=== PATIENT | female | born 1995 | race Caucasian/White ===

== ENCOUNTER 2019-08-20 11:32 | Emergency (ER) | payer MEDICAID, SELFPAY ==
[2019-08-20 11:40] VITALS: BP 108/73; PULSE 69; RESP 16; TEMP 36.4; O2SAT 99
--- NOTE | 2019-08-20 12:29 | ED.URI ---
HPI - URI/Sore Throat General Chief Complaint: Upper Respiratory Infection Stated Complaint: sore throat cough Time Seen by Provider: 08/20/19 12:29 Source: patient and RN notes reviewed Mode of arrival: ambulatory Limitations: no limitations History of Present Illness HPI Narrative: 24-year-old female who presents to [facility] care with complaints of fevers, cough with expectoration of yellow mucous,sore throat starting today but ear pain for 2-3 day. Patient rates her throat pain as 7/10 increases with swallowing and eating. Patient states that she has had a low grade fever with some chills, states that nasal drainage has been yellow also. Patient denies any shortness of breath or any noted wheezing, SAO2 99% on room air, patient states that she quit using tobacco in June of this year. MD elicited complaint: fever, cough, sore throat and rhinorrhea Pertinent past history: sinusitis Onset (ago): day(s) (2-3 ear pain, other symptoms today) Consistency: progressively worsening Severity: severe Pain scale (0-10): 7 Description of mucous: yellow Able to tolerate fluids by mouth: Yes Exacerbating factors: swallowing Relieving factors: nothing Context: sick contacts (daughter ill) Associated symptoms: fever, rhinorrhea, sore throat, cough and ear pain Treatments prior to arrival: acetaminophen Related Data Home Medications Medication Instructions Recorded Confirmed escitalopram oxalate 10 mg PO DAILY 08/20/19 08/20/19 quetiapine 25 mg PO HS 08/20/19 08/20/19 valacyclovir 500 mg PO DAILY 08/20/19 08/20/19 Allergies Allergy/AdvReac Type Severity Reaction Status Date / Time measles, mumps, and rubella Allergy Severe Swelling Verified 08/20/19 12:05 vaccine Review of Systems Review of Systems: All systems reviewed & are unremarkable except as noted in HPI and below Constitutional: Constitutional: Reports as per HPI, Reports no additional constitutional complaints, Reports chills and Reports fever(s) Eyes: Eyes: Reports as per HPI and Reports no additional eye complaints ENT: Reports system reviewed and no additional complaints, except as documented, Reports nasal congestion and Reports sore throat Cardiovascular: Cardiovascular: Reports as per HPI and Reports no additional cardiovascular complaints Respiratory: Respiratory: Reports as per HPI, Reports no additional respiratory complaints and Reports cough Gastrointestinal: Gastrointestinal: Reports as per HPI and Reports no additional gastrointestinal complaints Genitourinary: Genitourinary: Reports no additional female genitourinary complaints and Reports as per HPI Musculoskeletal: Musculoskeletal: Reports no additional musculoskeletal complaints and Reports as per HPI Integumentary/Breasts: Skin/Breast: Reports system reviewed and no additional complaints, except as docu and Reports as per HPI Neurologic: Reports system reviewed and no additional complaints, except as documented and Reports as per HPI Psychiatric: Psychiatric: Reports no additional psychiatric complaints, Reports as per HPI, Reports anxiety and Reports depression Endocrine: Endocrine: Reports no additional endocrine complaints and Reports as per HPI Hematologic/Lymphatic: Hematologic/Lymphatic: Reports no additional hematologic/lymphatic complaints and Reports as per HPI Allergic/Immunologic: Allergic/Immunologic: Reports no additional allergic/immunologic complaints and Reports as per HPI PMFSH Past Medical History Medical History (Updated 08/22/19 @ 17:51 by Nellie Huston NP) Anxiety and depression Sinusitis Surgical History Surgical History (Updated 08/22/19 @ 17:44 by Nellie Huston NP) History of tonsillectomy Tubal ligation status Social History Social History (Updated 08/22/19 @ 17:45 by Nellie Huston NP) Smoking status: Former smoker Tobacco type: cigarettes Smoking end date: 06/25/19 Living arrangements: with family Gender identity (if verbalized by t
== END 2019-08-20 12:45 | disposition home or self-care (01) ==
PROVIDERS: Emergency Provider Registered Nurse
DX: H65.01 Acute serous otitis media, right ear (principal); J02.9 Acute pharyngitis, unspecified; Z87.891 Personal history of nicotine dependence; F41.9 Anxiety disorder, unspecified; F32.9 Major depressive disorder, single episode, unspecified
CPT/HCPCS: 87081; 87880; 99213; G0463

== ENCOUNTER 2021-01-24 15:05 | Emergency (ER) | payer OTHER, SELFPAY ==
[2021-01-24 15:12] VITALS: BP 143/75; PULSE 71; RESP 20; TEMP 36.2; O2SAT 100
--- NOTE | 2021-01-24 15:51 | ED.SKABFB ---
HPI - Skin/Abscess/Foreign Bdy General Chief complaint: Skin/Abscess/Foreign Body Stated complaint: right ring finger issue Time Seen by Provider: 01/24/21 15:51 Source: patient and family History of Present Illness HPI narrative: Patient presents with a itchy rash to her right ring finger. Patient states she has a history of eczema and has tried calamine lotion and cortisone cream with minimal relief in the area. Related Data Allergies Allergy/AdvReac Type Severity Reaction Status Date / Time measles, mumps, and rubella Allergy Severe Swelling Verified 01/24/21 15:36 vaccine Review of Systems Review of Systems: CONSTITUTIONAL: Denies fever, chills, or sweats. EYES: Denies visual changes, redness, or discharge. ENT: Denies rhinorrhea, congestion, sore throat, or otalgia. CARDIOVASCULAR: Denies chest pain, palpitations, or edema. RESPIRATORY: Denies cough or dyspnea. GASTROINTESTINAL: Denies abdominal pain, nausea, vomiting, or diarrhea. GENITOURINARY: Denies dysuria or hematuria. SKIN: Denies rash or itching. MUSCULOSKELETAL: Denies back pain, joint pain, or myalgia. NEUROLOGIC: Denies headache, numbness, or weakness. PSYCHIATRIC: Denies anxiety or depression. Allergic/Immunologic: Comments: At time of signature, agree with nursing past medical, surgical, social and family history. There is no relevant family history pertinent to the presenting complaint PMFSH Past Medical History Medical History (Updated 01/24/21 @ 15:53 by YESENIA Ruiz) Anxiety and depression Sinusitis Surgical History Surgical History (Updated 08/22/19 @ 17:44 by Nellie Huston NP) History of tonsillectomy Tubal ligation status Social History Social History (Updated 08/22/19 @ 17:45 by Nellie Huston NP) Smoking status: Former smoker Tobacco type: cigarettes Smoking end date: 06/25/19 Gender identity (if verbalized by the patient): Female Exam Narrative: GENERAL: Well-appearing, well-nourished, and in no acute distress. HEAD: Normocephalic, atraumatic. EYES: PERRLA and EOMI. ENT: Nares clear, no rhinorrhea or epistaxis. Mucous membranes moist. NECK: Supple. CHEST: Clear to auscultation. No respiratory distress. HEART: Regular rate and rhythm. No murmur heard. Normal peripheral pulses. ABDOMEN: Soft, nontender, nondistended, normal active bowel sounds. EXTREMITIES: Normal range of motion. No edema. SKIN: Warm, dry, no dry scsly rash to right ring finger consistent with eczema no concern for cellullitis NEURO: No focal deficits. Alert and oriented x3. Nika Coma Scale Eye Opening: Spontaneous 4 Selma Coma Scale Motor: Obeys Commands 6 Nika Coma Scale Verbal: Oriented 5 Nika Coma Scale Total 15 Course Vital Signs Vital signs: Vital Signs Temperature 36.2 C L 01/24/21 15:12 Pulse Rate 71 01/24/21 15:12 Respiratory Rate 20 01/24/21 15:12 Blood Pressure 143/75 H 01/24/21 15:12 Pulse Oximetry 100 01/24/21 15:12 Temperature 36.2 C L 01/24/21 15:12 Pulse Rate 71 01/24/21 15:12 Respiratory Rate 20 01/24/21 15:12 Blood Pressure 143/75 H 01/24/21 15:12 Pulse Oximetry 100 01/24/21 15:12 Please MICHAEL schedule a followup visit with your personal physician for further evaluation and treatment. Including recheck and discussion of your blood pressure. If your symptoms persist, change or worsen significantly before you can contact your personal physician then please, without delay, go to the emergency department for further evaluation MDM - Skin/Abscess/Foreign Bdy Differential Diagnosis Differential diagnosis: Likely abscess of skin or subcutaneous tissue, viral exanthem, dermatophytosis, urticaria, herpes zoster, allergic reaction to drug, cellulitis, eczema, insect bites, impetigo and contact dermatitis Critical Care Time Critical Care Time Critical Care Time: No Discharge Plan Discharge Clinical Impression: Eczema Patient Disposition: Home, Self-Care Con
== END 2021-01-24 15:55 | disposition home or self-care (01) ==
PROVIDERS: Emergency Provider Nurse Practitioner Family
DX: L30.9 Dermatitis, unspecified (principal); Z87.891 Personal history of nicotine dependence
CPT/HCPCS: 99213; G0463

== ENCOUNTER 2021-04-02 17:45 | Emergency (ER) | payer OTHER, SELFPAY ==
[2021-04-02 17:58] VITALS: BP 147/75; PULSE 98; RESP 20; TEMP 36.7; O2SAT 99
--- NOTE | 2021-04-02 18:10 | ED.URI ---
HPI - URI/Sore Throat General Chief Complaint: Upper Respiratory Infection Stated Complaint: congested/ear pain Source: patient Mode of arrival: ambulatory Limitations: no limitations History of Present Illness HPI Narrative: Patient is a 26-year-old female who presents complaining of sore throat, ear pressure, headache, cough and congestion x2 days. Patient reports fever yesterday. 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 Patient reports that she is not vaccinated for Covid at this time, denies known exposure. She reports taking [id number] medications for fever control. She denies all other complaints at this time. Related Data Home Medications Medication Instructions Recorded Confirmed No Home Medications 04/02/21 04/02/21 Allergies Allergy/AdvReac Type Severity Reaction Status Date / Time measles, mumps, and rubella Allergy Severe Swelling Verified 04/02/21 18:03 vaccine Review of Systems Review of Systems: CONSTITUTIONAL: Denies fever, chills, or sweats. EYES: Denies visual changes, redness, or discharge. ENT: Reports congestion, sore throat, or otalgia. CARDIOVASCULAR: Denies chest pain, palpitations, or edema. RESPIRATORY: Reports cough, denies dyspnea. GASTROINTESTINAL: Denies abdominal pain, nausea, vomiting, or diarrhea. GENITOURINARY: Denies dysuria or hematuria. SKIN: Denies rash or itching. MUSCULOSKELETAL: Denies back pain, joint pain, or myalgia. NEUROLOGIC: Reports headache, denies numbness, dizziness, or weakness. PSYCHIATRIC: Denies anxiety or depression. [facility] Past Medical History Medical History Anxiety and depression Sinusitis Surgical History Surgical History History of tonsillectomy Tubal ligation status Social History Social History Smoking status: Former smoker Tobacco type: cigarettes Smoking end date: 06/25/19 Gender identity (if verbalized by the patient): Female Comments At the time of signature, I have reviewed and agree with nursing past medical, surgical, social, and family history unless otherwise noted. Please see nursing chart for further information. There is no relevant family history pertinent to the presenting complaint. Exam Narrative: GENERAL: Well-nourished, in no acute distress. HEAD: Normocephalic, atraumatic. EYES: EOMI. No redness or drainage. Conjunctiva are normal. ENT: Mucous membranes pink and moist. Nares clear. No rhinorrhea. TMs normal bilaterally. Throat mild erythema. Uvula midline. CHEST: No respiratory distress. HEART: Regular rate and rhythm. EXTREMITIES: Normal range of motion. No edema. SKIN: Warm, dry, no rash. NEURO: No focal deficits. Alert and oriented x3. Gait steady. PSYCH: Normal affect. No signs of depression or anxiety. Course Vital Signs Vital signs: Vital Signs Temperature 36.7 C 04/02/21 17:58 Pulse Rate 98 04/02/21 17:58 Respiratory Rate 20 04/02/21 17:58 Blood Pressure 147/75 H 04/02/21 17:58 Pulse Oximetry 99 04/02/21 17:58 Temperature 36.7 C 04/02/21 17:58 Pulse Rate 98 04/02/21 17:58 Respiratory Rate 20 04/02/21 17:58 Blood Pressure 147/75 H 04/02/21 17:58 Pulse Oximetry 99 04/02/21 17:58 Reviewed-patient is informed that they may have pre-hypertension or hypertension based on a blood pressure reading. I recommend the patient call the primary care provider listed on their discharge instructions or a physician of their choice this week to arrange follow-up for further evaluation of possible pre-hypertension or hypertension. MDM - URI/Sore Throat MDM Narrative Medical decision making narrative: Patient's rapid strep is negative, rapid Covid negative. Covid PCR sent to lab at this time. Discussed with patient symptomatic treatment such as Tylenol or ibuprofen, warm salt water gargles
[2021-04-04 20:20] LABS: SARS-CoV-2 RNA PCR Negative
== END 2021-04-02 18:42 | disposition home or self-care (01) ==
PROVIDERS: Emergency Provider Nurse Practitioner
DX: J06.9 Acute upper respiratory infection, unspecified (principal); Z20.822 Contact with and (suspected) exposure to COVID-19
CPT/HCPCS: 87081; 87426; 87880; 99213; C9803; G0463; U0003; U0005

== ENCOUNTER 2021-05-07 11:20 | Emergency (ER) | payer OTHER, SELFPAY ==
[2021-05-07 11:33] VITALS: BP 125/87; PULSE 91; RESP 18; TEMP 36.7; O2SAT 99
--- NOTE | 2021-05-07 12:29 | ED.SKABFB ---
HPI - Skin/Abscess/Foreign Bdy General Chief complaint: Urogenital-Female Stated complaint: wound on left calf and poss uti Source: patient Mode of arrival: ambulatory Limitations: no limitations History of Present Illness HPI narrative: Patient is a 26-year-old female who presents complaining of mild right flank and pelvic pain x3 to 4 days. She reports urinary frequency. Patient also reports abscess to left lower extremity. Patient reports a history of cellulitis and abscess in the past approximately 3 to 4 months ago. She denies all other complaints at this time. She denies taking [id number] medications prior to arrival. Patient has no significant medical history. MD complaint: abscess/boil Related Data Home Medications Medication Instructions Recorded Confirmed norethindrone-e.estradiol-iron 1 tablet PO DAILY 05/07/21 05/07/21 [Aurovela Fe 1-20 (28)] Allergies Allergy/AdvReac Type Severity Reaction Status Date / Time measles, mumps, and rubella Allergy Severe Swelling Verified 05/07/21 11:49 vaccine Review of Systems Review of Systems: CONSTITUTIONAL: Denies fever, chills, or sweats. EYES: Denies visual changes, redness, or discharge. ENT: Denies rhinorrhea, congestion, sore throat, or otalgia. CARDIOVASCULAR: Denies chest pain, palpitations, or edema. RESPIRATORY: Denies cough or dyspnea. GASTROINTESTINAL: Denies abdominal pain, nausea, vomiting, or diarrhea. GENITOURINARY: Right flank pain and lower abdominal pain SKIN: Abscess to left lower leg MUSCULOSKELETAL: Denies back pain, joint pain, or myalgia. NEUROLOGIC: Denies headache, numbness, dizziness, or weakness. PSYCHIATRIC: Denies anxiety or depression. [facility] Past Medical History Medical History Anxiety and depression Sinusitis Surgical History Surgical History History of tonsillectomy Tubal ligation status Social History Social History Smoking status: Former smoker Tobacco type: cigarettes Smoking end date: 06/25/19 Gender identity (if verbalized by the patient): Female Comments At the time of signature, I have reviewed and agree with nursing past medical, surgical, social, and family history unless otherwise noted. Please see nursing chart for further information. There is no relevant family history pertinent to the presenting complaint. Exam Narrative: GENERAL: Well-appearing, well-nourished, and in no acute distress. HEAD: Normocephalic, atraumatic. EYES: EOMI. No redness or drainage. Conjunctiva are normal. ENT: Mucous membranes pink and moist. CHEST: No respiratory distress. HEART: Regular rate and rhythm. EXTREMITIES: Normal range of motion. No edema. SKIN: Approximate 5 x 6 cm area of erythema with centralized area of fluctuation and induration. No drainage at this time. Warmth and tenderness noted with palpation. NEURO: No focal deficits. Alert and oriented x3. Gait steady. PSYCH: Normal affect. No signs of depression or anxiety. Course Vital Signs Vital signs: Vital Signs Temperature 36.7 C 05/07/21 11:33 Pulse Rate 91 05/07/21 11:33 Respiratory Rate 18 05/07/21 11:33 Blood Pressure 125/87 05/07/21 11:33 Pulse Oximetry 99 05/07/21 11:33 Temperature 36.7 C 05/07/21 11:33 Pulse Rate 91 05/07/21 11:33 Respiratory Rate 18 05/07/21 11:33 Blood Pressure 125/87 05/07/21 11:33 Pulse Oximetry 99 05/07/21 11:33 Reviewed Procedures Abscess I/D lower extremity: Date of Incision: 05/07/21 Sedation/analgesia: none Local Anesthetic: lidocaine 1% Amount of anesthesia used (mL): 3 Technique: needle aspiration Amount of fluid expressed (mL): 1 Irrigation: No Packing used?: none I&D Results: Pus MDM - Skin/Abscess/Foreign Bdy MDM Narrative Medical
== END 2021-05-07 13:20 | disposition home or self-care (01) ==
PROVIDERS: Emergency Provider Nurse Practitioner; PCP Nurse Practitioner Family
DX: L02.415 Cutaneous abscess of right lower limb (principal); Z87.891 Personal history of nicotine dependence
CPT/HCPCS: 10160; 81003; 87070; 87147; 87186; 87205; 99213; G0463

== ENCOUNTER 2021-07-20 17:22 | Emergency (ER) | payer OTHER, SELFPAY ==
--- NOTE | 2021-07-20 17:25 | ED.FEMALEGU ---
HPI - Female Genitourinary General Chief complaint: Urogenital-Female Stated complaint: STD Exposure/Skin Problem Time Seen by Provider: 07/20/21 17:25 Source: patient and RN notes reviewed History of Present Illness HPI Narrative: Patient is a 26-year-old female who presents the urgent care with complaints of STD exposure and possible staph infection. Patient states that she was notified by her boyfriend's mistress today that she tested positive for gonorrhea and trichomonas. Patient states that her boyfriend was also positive. Patient states that for the last 3 days she has had an odor to her vaginal discharge. Patient also states of suprapubic pressure/pain, urinary urgency and dysuria. Patient states that the skin lesion on the lower abdomen popped up a couple days ago. Denies of any fevers. States that she has had some intermittent nausea with one episode of vomiting this morning at 630. No other acute complaints. No acute distress noted. Patient read the plan of care. Some parts of this dictation were generated by voice recognition software and may contain typographical and/or grammatical inaccuracies. Related Data Home Medications Medication Instructions Recorded Confirmed Valtrex 07/20/21 07/20/21 clonazepam 0.5 mg PO PRN PRN 07/20/21 clonidine HCl 0.1 mg PO DAILY 07/20/21 07/20/21 quetiapine 100 mg PO HS 07/20/21 07/20/21 sertraline 100 mg PO DAILY 07/20/21 07/20/21 Allergies Allergy/AdvReac Type Severity Reaction Status Date / Time measles, mumps, and rubella Allergy Severe Swelling Verified 05/07/21 11:49 vaccine Review of Systems Review of Systems: CONSTITUTIONAL: Denies fever, chills, or sweats. EYES: Denies visual changes, redness, or discharge. ENT: Denies rhinorrhea, congestion, sore throat, or otalgia. CARDIOVASCULAR: Denies chest pain, palpitations, or edema. RESPIRATORY: Denies cough or dyspnea. GASTROINTESTINAL: Reports of nausea with 1 episode of vomiting with suprapubic pain GENITOURINARY: Reports of dysuria, vaginal discharge with an odor, urinary urgency SKIN: Reports of a skin lesion to the lower abdomen MUSCULOSKELETAL: Denies back pain, joint pain, or myalgia. NEUROLOGIC: Denies headache, numbness, or weakness. All other systems reviewed are negative, except as documented in HPI. [facility] Past Medical History Medical History Anxiety and depression Sinusitis Surgical History Surgical History History of tonsillectomy Tubal ligation status Social History Social History Smoking status: Former smoker Tobacco type: cigarettes Smoking end date: 06/25/19 Gender identity (if verbalized by the patient): Female Comments At the time of my signature, I reviewed and agree with the nursing past medical, surgical, social, and family history. There is no relevant family history pertinent to the patient complaint. Exam Narrative: GENERAL: This is a well-nourished, well-developed patient, in no apparent distress. HEAD: normocephalic, atraumatic. EYES: PERRL. Sclera clear/white. Vision is grossly intact. EARS: External ears normal NOSE: External nose normal with no obvious nasal discharge, nares without redness, no rhinorrhea. THROAT: Mucous membranes moist NECK: Neck supple CARDIOVASCULAR: Regular rate and rhythm without murmurs, gallops, or rubs. RESPIRATORY: Clear to auscultation. Breath sounds equal bilaterally. No wheezes, rales, or rhonchi. GASTROINTESTINAL: Abdomen soft, mild diffuse suprapubic tenderness, nondistended. Bowel sounds are active. SKIN: 1 x 1 cm area of erythema surrounding folliculitis to the lower left abdomen. Warm, intact with no suspicious lesions or rash, good texture and turgor. NEURO: awake, alert, and oriented to person, place and time. There were no obvious focal neurologic abnormaliti
[2021-07-20 17:30] VITALS: BP 141/90; PULSE 100; RESP 16; TEMP 36.8; O2SAT 98
[2021-07-20 17:45] VITALS: BP 141/90; PULSE 100; RESP 16; TEMP 36.8; O2SAT 98
--- NOTE | 2021-07-20 18:03 | PC.NURSE ---
1755 ADMINISTERED 500 MG ROCEPHIN MIXED WITH 1 ML OF 1 PERCENT LIDOCAINE IM IN LEFT GLUTEAL MUSCLE. Carmella HOLDER RN
== END 2021-07-20 18:20 | disposition home or self-care (01) ==
PROVIDERS: Emergency Provider Nurse Practitioner Family; PCP Nurse Practitioner Family
DX: Z20.2 Contact with and (suspected) exposure to infections with a predominantly sexual mode of transmission (principal); N39.0 Urinary tract infection, site not specified; F41.9 Anxiety disorder, unspecified; F32.A Depression, unspecified
CPT/HCPCS: 81003; 87086; 87088; 87491; 87591; 87661; 96372; 99214; G0463; J0696

== ENCOUNTER 2022-01-21 11:41 | Emergency (ER) | payer OTHER, SELFPAY ==
[2022-01-21 11:46] VITALS: BP 123/72; PULSE 66; RESP 18; TEMP 36.7; O2SAT 99
--- NOTE | 2022-01-21 11:59 | ED.URI ---
HPI - URI/Sore Throat General Chief Complaint: Upper Respiratory Infection Stated Complaint: Fever/Ear Pain/Sore Throat Time Seen by Provider: 01/21/22 11:59 Source: patient and RN notes reviewed Mode of arrival: ambulatory Limitations: no limitations History of Present Illness HPI Narrative: 26-year-old female presented for complaint of sinus pressure, congestion, sore throat ear pain and body aches. Endorses symptoms started 2 days ago. Father tested positive for COVID 5 days ago. She has been taking Tylenol and ibuprofen for symptoms. Denies nausea, vomiting, diarrhea, shortness of breath or wheezing. MD elicited complaint: cough Related Data Home Medications Medication Instructions Recorded Confirmed No Home Medications 01/21/22 01/21/22 Allergies Allergy/AdvReac Type Severity Reaction Status Date / Time measles, mumps, and rubella Allergy Severe Swelling Verified 01/21/22 11:58 vaccine Review of Systems Review of Systems: ROS negative except as in HPI PMFSH Past Medical History Medical History Anxiety and depression Sinusitis Surgical History Surgical History History of tonsillectomy Tubal ligation status Social History Social History Smoking status: Former smoker Tobacco type: cigarettes Smoking end date: 06/25/19 Gender identity (if verbalized by the patient): Female Exam Narrative: GENERAL: Ill-appearing, nontoxic EYES: conjunctivae clear ENT: Mucous membranes moist. TM pearly jefferson with dull light reflex bilaterally; no tragal tenderness. Oropharynx erythematous without lesions or exudate, no drooling, no hoarseness, no trismus, uvula midline. NECK: Supple. No lymphadenopathy CHEST: Clear to auscultation, breath sounds equal. HEART: Regular rate and rhythm. No murmur heard. SKIN: Warm, dry, no rash. NEURO: Alert and oriented x3. Course Course Emergency Course: Patient is aware of diagnosis, understands and agrees to treatment plan. Anticipatory guidance given. Patient agrees to follow-up as directed and is aware of reasons to seek care at the emergency department. Portions of this record may have been created with voice recognition software Level of Care: Express Care Visit Vital Signs Vital signs: Vital Signs Temperature 98.1 F 01/21/22 11:46 Pulse Rate 66 01/21/22 11:46 Respiratory Rate 18 01/21/22 11:46 Blood Pressure 123/72 01/21/22 11:46 Pulse Oximetry 99 01/21/22 11:46 Oxygen Delivery Room Air 01/21/22 11:46 Temperature 98.1 F 01/21/22 11:46 Pulse Rate 66 01/21/22 11:46 Respiratory Rate 18 01/21/22 11:46 Blood Pressure 123/72 01/21/22 11:46 Pulse Oximetry 99 01/21/22 11:46 Oxygen Delivery Room Air 01/21/22 11:46 reviewed MDM - URI/Sore Throat MDM Narrative Medical decision making narrative: covid neg results reviewed with pt. Recommend retesting in 1-2 days due to known exposure. advised supportive measures and signs/symptoms to go to the ER. Pt is appropriate for outpt treatment and f/u. Differential Diagnosis Differential diagnosis: Likely upper respiratory infection, sinusitis and viral infection Lab Data Labs: Lab Results 01/21/22 Range/Units 12:15 POC SARS CoV-2 Ag Negative (Negative) Discharge Plan Discharge Clinical Impression: Viral infection Patient Disposition: Home, Self-Care Condition: Stable Instructions: COVID-19 (Coronavirus Disease 2019) (ED) Additional Instructions: Your Rapid COVID test was negative today. If you are symptomatic with reason to believe you have COVID-19, there is a high possibility your rapid test may not have detected the virus. You should follow appropriate guidelines regarding quarantine, hand washing, mask wearing, and social distancing Rest, stay hydrated.
== END 2022-01-21 12:41 | disposition home or self-care (01) ==
PROVIDERS: Emergency Provider Nurse Practitioner Family; PCP Nurse Practitioner Family
DX: B34.9 Viral infection, unspecified (principal); Z20.822 Contact with and (suspected) exposure to COVID-19; Z87.891 Personal history of nicotine dependence
CPT/HCPCS: 87426; 99213; C9803; G0463

== ENCOUNTER 2022-04-18 13:34 | Emergency (ER) | payer OTHER, SELFPAY ==
[2022-04-18 13:54] VITALS: BP 129/80; PULSE 110; RESP 20; TEMP 36.4; O2SAT 100
--- NOTE | 2022-04-18 14:52 | ED.GENADULT ---
HPI - General Adult General Chief complaint: Upper Respiratory Infection Stated complaint: sore throat ears aches cough congestion Source: patient Mode of arrival: ambulatory Limitations: no limitations History of Present Illness HPI narrative: Patient presents for evaluation of sick symptoms since Sunday this week. 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 She went home that evening and had fever, headaches, sinus congestion, rhinorrhea, generalized body aches, sore throat, cough, nausea, and vomiting. She believes some of the residents have influenza. She states she has had COVID 3 times, with the most recent episode being within the last 3 months. She reports a painful plaque to her tongue She denies any recent inhaler use. She has tried [id number] cough and cold medicine without considerable improvement in her symptoms or after. Related Data Allergies Allergy/AdvReac Type Severity Reaction Status Date / Time measles, mumps, and rubella Allergy Severe Swelling Verified 01/21/22 11:58 vaccine Review of Systems Review of Systems: CONSTITUTIONAL: Reports fever, chills, hot flashes, sweats. EYES: Denies visual changes, redness, or discharge. ENT: Reports sore throat, painful plaque to tongue, rhinorrhea and congestion. Reports otalgia CARDIOVASCULAR: Denies chest pain, palpitations, or edema. RESPIRATORY: Reports cough. Denies SOB GASTROINTESTINAL: Reports nausea and vomiting. Denies abdominal dav or diarrhea. GENITOURINARY: Denies dysuria or hematuria. SKIN: Denies rash or itching. MUSCULOSKELETAL: Reports generalized body aches NEUROLOGIC: Reports headache. Denies numbness, dizziness, or weakness. PSYCHIATRIC: Denies anxiety or depression. [facility] Past Medical History Medical History Anxiety and depression Sinusitis Surgical History Surgical History History of tonsillectomy Tubal ligation status Family History Family History Mother Family history non-contributory Social History Social History (Updated 04/18/22 @ 14:57 by YESENIA Espitia, DAYANNA) Smoking status: Current every day smoker Tobacco type: cigarettes Smoking end date: 06/25/19 Substance use: never Living arrangements: with family Gender identity (if verbalized by the patient): Female Exam Narrative: GENERAL: Well-appearing, well-nourished, and in no acute distress. HEAD: Normocephalic, atraumatic. EYES: PERRLA and EOMI. ENT: Nares clear, no rhinorrhea or epistaxis. Mucous membranes moist. There is a white plaque noted to the tongue. Oropharynx without tonsillar hypertrophy. Bilateral TMs pearly jefferson nonbulging NECK: Supple. No adenopathy or masses. No carotid bruits or JVD CHEST: Clear to auscultation. No respiratory distress. No wheezes rales or rhonchi HEART: Regular rate and rhythm. No murmur heard. Normal peripheral pulses. ABDOMEN: Soft, nontender, nondistended, normal active bowel sounds. EXTREMITIES: Normal range of motion. No edema. SKIN: Warm, dry, no rash. NEURO: No focal deficits. Alert and oriented x3. PSYCH: Normal mood and affect. Course Course Emergency Course: This is a 27-year-old female who presented for evaluation of sick symptoms. COVID, influenza, strep are all negative. Exam is consistent with acute viral syndrome. HR normalized on my exam following rate taken in triage. She also has evidence of thrush on exam. Discharge with Tessalon, Cepacol, Zofran, nystatin. Follow-up outpatient for further evaluation and treatment and go to ER for worsening symptoms. Pt in agreement with plan of care. Level of Care: Express Care Visit Vital Signs Vital signs: Vital Signs Temperature 36.4 C L 04/18/22 13:54 Pulse Rate 110 H 04/18/22 13:54 Respiratory Rate 20
== END 2022-04-18 15:02 | disposition home or self-care (01) ==
PROVIDERS: Emergency Provider Nurse Practitioner
DX: B34.9 Viral infection, unspecified (principal); Z20.822 Contact with and (suspected) exposure to COVID-19; Z87.891 Personal history of nicotine dependence; Z86.16 Personal history of COVID-19
CPT/HCPCS: 87081; 87426; 87804; 87880; 99213; C9803; G0463

== ENCOUNTER 2022-09-24 17:46 | Emergency (ER) | payer OTHER, SELFPAY ==
--- NOTE | ~2022-09-24 | XR_ITS ---
EXAM: XR knee LT min 4V DATE: 09/24/2022 18:37 HISTORY: GEN PAIN AFTER BENDING DOWN, PAIN WITH BENDING . COMPARISON: None available. FINDINGS: Normal mineralization. No fracture or dislocation. No lytic or blastic lesion. Mild medial joint space narrowing. No erosion or periosteal change. Soft tissues within normal limits. Moderate volume joint fluid. IMPRESSION: No acute osseous finding in the left knee. Moderate left knee joint effusion. Reviewed, dictated and finalized at location K.
[2022-09-24 18:00] VITALS: BP 152/92; PULSE 115; RESP 18; TEMP 36.2; O2SAT 100
--- NOTE | 2022-09-24 18:21 | ED.GENADULT ---
HPI - General Adult General Chief complaint: Extremity Injury, Lower Stated complaint: Left Knee Pain Source: patient Mode of arrival: ambulatory Limitations: no limitations History of Present Illness HPI narrative: Patient presents for evaluation of left knee pain. Symptom onset this afternoon. She indicates she was squatting down to pick something up while doing laundry when she felt sudden pain in the left knee. Pain is primarily in the anterior aspect of the left knee and she rates the pain 7/10 in severity. No radicular component. No paresthesias. No history of injury to the knee. No history of similar symptoms. She does not smoke. No personal history of DVT. Denies any pain in the calf. Denies lower extremity swelling. She tried taking naproxen for symptoms. Pain is worse with certain movements. She is able to ambulate but states that she has been limping since the time of the injury. Related Data Home Medications Medication Instructions Recorded Confirmed albuterol sulfate 90 mcg/actuation 2 puff inhalation Q4-6H PRN 09/24/22 09/24/22 aerosol inhaler Shortness Of Breath budesonide-formoterol HFA 80 2 puff inhalation BID 09/24/22 09/24/22 mcg-4.5 mcg/actuation aerosol inhaler (Symbicort) bupropion HCl 150 mg 24 hr tablet, 150 mg PO DAILY 09/24/22 09/24/22 extended release escitalopram oxalate 10 mg tablet 10 mg PO QPM 09/24/22 09/24/22 norgestimate 0.25 mg-ethinyl 1 tablet PO DAILY 09/24/22 09/24/22 estradiol 35 mcg tablet (Estarylla) Allergies Allergy/AdvReac Type Severity Reaction Status Date / Time measles, mumps, and rubella Allergy Severe Swelling Verified 09/24/22 18:11 vaccine Review of Systems Review of Systems: CONSTITUTIONAL: Denies fever, chills, or sweats. EYES: Denies visual changes, redness, or discharge. ENT: Denies rhinorrhea, congestion, sore throat, or otalgia. CARDIOVASCULAR: Denies chest pain, palpitations, or edema. RESPIRATORY: Denies cough or dyspnea. GASTROINTESTINAL: Denies abdominal pain, nausea, vomiting, or diarrhea. GENITOURINARY: Denies dysuria or hematuria. SKIN: Denies rash or itching. MUSCULOSKELETAL: Reports pain in left knee. NEUROLOGIC: Denies headache, numbness, dizziness, or weakness. PSYCHIATRIC: Denies anxiety or depression. [facility] Past Medical History Medical History (Updated 09/24/22 @ 19:21 by YESENIA Espitia, ) Anxiety and depression Knee effusion Sinusitis Surgical History Surgical History History of tonsillectomy Tubal ligation status Family History Family History Mother Family history non-contributory Social History Social History Smoking status: Former smoker Tobacco type: cigarettes Smoking end date: 06/25/19 Substance use: never Living arrangements: with family Gender identity (if verbalized by the patient): Female Sexual Orientation (if Verbalized by the Patient): Straight or Heterosexual Spiritual care concerns: No Exam Narrative: GENERAL: Well-appearing, well-nourished, and in no acute distress. HEAD: Normocephalic, atraumatic. EYES: PERRLA and EOMI. ENT: Nares clear, no rhinorrhea or epistaxis. Mucous membranes moist. Oropharynx without tonsillar hypertrophy exudate or other lesions. Bilateral TMs pearly jefferson nonbulging NECK: Supple. No adenopathy or masses. No carotid bruits or JVD CHEST: Clear to auscultation. No respiratory distress. No wheezes rales or rhonchi HEART: Regular rate and rhythm. No murmur heard. Normal peripheral pulses. ABDOMEN: Soft, nontender, nondistended, normal active bowel sounds. EXTREMITIES: Decreased active range of motion of the left knee secondary to pain. She is able to tolerate full extension of left knee in flexion to approximately 90?. There is tenderness in the anterior as
== END 2022-09-24 20:14 | disposition home or self-care (01) ==
PROVIDERS: Emergency Provider Nurse Practitioner
DX: M25.462 Effusion, left knee (principal); Z87.891 Personal history of nicotine dependence; F41.9 Anxiety disorder, unspecified; F32.A Depression, unspecified
CPT/HCPCS: 73564; 99213; G0463

== ENCOUNTER 2022-12-23 12:29 | Emergency (ER) | payer OTHER, SELFPAY ==
[2022-12-23 12:40] VITALS: BP 129/67; PULSE 70; RESP 16; TEMP 36.6; O2SAT 99
--- NOTE | 2022-12-23 12:56 | ED.FEMALEGU ---
HPI - Female Genitourinary General Chief complaint: Urogenital-Female Stated complaint: Poss Uti Time Seen by Provider: 12/23/22 12:56 Source: patient, RN notes reviewed and old records reviewed Mode of arrival: ambulatory Limitations: no limitations History of Present Illness HPI Narrative: 27-year-old female presents to the [facility] with concerns for a UTI. Patient reports frequency, urgency and burning with urination. Has taken Tylenol. Onset (ago): day(s) (2-3) Possible : other (Tubal ligation and control denies ) Related Data Home Medications Medication Instructions Recorded Confirmed norgestimate 0.25 mg-ethinyl 1 tablet PO DAILY 09/24/22 09/24/22 estradiol 35 mcg tablet (Estarylla) Allergies Allergy/AdvReac Type Severity Reaction Status Date / Time measles, mumps, and rubella Allergy Severe Swelling Verified 09/24/22 18:11 vaccine Review of Systems Review of Systems: All systems reviewed & are unremarkable except as noted in HPI and below Constitutional: Constitutional: Reports no additional constitutional complaints Eyes: Eyes: Reports no additional eye complaints ENT: Reports system reviewed and no additional complaints, except as documented Cardiovascular: Cardiovascular: Reports no additional cardiovascular complaints, Denies chest pain and Denies dyspnea Respiratory: Respiratory: Reports no additional respiratory complaints, Denies chest congestion, Denies cough and Denies dyspnea Gastrointestinal: Gastrointestinal: Reports no additional gastrointestinal complaints, Denies abdominal pain, Denies nausea and Denies vomiting Genitourinary: Genitourinary: Reports as per HPI and Reports urinary urgency Musculoskeletal: Musculoskeletal: Reports no additional musculoskeletal complaints Integumentary/Breasts: Skin/Breast: Reports system reviewed and no additional complaints, except as docu Neurologic: Reports system reviewed and no additional complaints, except as documented Psychiatric: Psychiatric: Reports no additional psychiatric complaints Allergic/Immunologic: Allergic/Immunologic: Reports no additional allergic/immunologic complaints [facility] Past Medical History Medical History Anxiety and depression Knee effusion Sinusitis Surgical History Surgical History History of tonsillectomy Tubal ligation status Family History Family History Mother Family history non-contributory Social History Social History Smoking status: Former smoker Tobacco type: cigarettes Smoking end date: 06/25/19 Substance use: never Living arrangements: with family Gender identity (if verbalized by the patient): Female Sexual Orientation (if Verbalized by the Patient): Straight or Heterosexual Spiritual care concerns: No Comments At the time of my signature, I reviewed and agree with the nursing past medical, surgical, social, and family history. There is no relevant family history pertinent to the patient complaint. Exam Const: General: cooperative, healthy appearing, comfortable, no acute distress, well developed, alert and well nourished Nutritional Appearance: well nourished Orientation/consciousness: patient oriented x3 Limitations: no limitations HENMT: Head: normal to inspection Ears: hearing grossly normal bilaterally and external ears normal Face/Nose/Sinus: Normal external nose present, Normal nares present, Normal nasal mucous membranes and turbinates present and normal facial exam Face and sinus: normal facial exam Mouth: Yes moist mucous membranes Throat: posterior oropharynx normal and uvula midline Eyes: General: appearance normal, both eyes and all related structures Alignment and Position: alignment normal Periorbital: perio
== END 2022-12-23 13:06 | disposition home or self-care (01) ==
PROVIDERS: Emergency Provider Nurse Practitioner
DX: N30.00 Acute cystitis without hematuria (principal); Z87.891 Personal history of nicotine dependence
CPT/HCPCS: 81003; 87086; 99213; G0463

== ENCOUNTER 2023-01-22 11:03 | Emergency (ER) | payer OTHER, SELFPAY ==
--- NOTE | 2023-01-22 11:06 | ED.BACK ---
HPI - Back Pain/Injury General Chief Complaint: Back Pain/Injury Stated Complaint: Back Pain Time Seen by Provider: 01/22/23 11:06 Source: patient Mode of arrival: ambulatory Limitations: no limitations History of Present Illness HPI Narrative: Sandra is a 27-year-old female patient presenting to the clinic today with complaints of back pain x1 day. 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 She has been taking Tylenol and Motrin for pain. Denies any saddle anesthesia or numbness or tingling going down her legs. She denies any loss of bowel or bladder. Currently rates her pain a 5/10. Related Data Home Medications Medication Instructions Recorded Confirmed norgestimate 0.25 mg-ethinyl 1 tablet PO DAILY 09/24/22 01/22/23 estradiol 35 mcg tablet (Estarylla) Allergies Allergy/AdvReac Type Severity Reaction Status Date / Time measles, mumps, and rubella Allergy Severe Swelling Verified 09/24/22 18:11 vaccine Review of Systems Review of Systems: Pertinent positives per HPI. Patient denies any fever, chills, rash, headache, visual changes, dizziness, cough, runny nose, sore throat, shortness of breath, chest pain, palpitations, nausea, vomiting, diarrhea, constipation, abdominal pain, or any urinary issues. [facility] Past Medical History Medical History Anxiety and depression Knee effusion Sinusitis Surgical History Surgical History History of tonsillectomy Tubal ligation status Family History Family History Mother Family history non-contributory Social History Social History Smoking status: Former smoker Tobacco type: cigarettes Smoking end date: 06/25/19 Substance use: never Living arrangements: with family Gender identity (if verbalized by the patient): Female Sexual Orientation (if Verbalized by the Patient): Straight or Heterosexual Spiritual care concerns: No Comments At the time of my signature, I reviewed and agree with the nursing past medical, surgical, social, and family history. There is no relevant family history pertinent to the patient complaint. Exam Narrative: General: Well-developed, well nourished, in no apparent distress Head: Normocephalic, atraumatic. Cardio: Regular rate and rhythm, s1 and s2 normal, no murmur appreciated. Resp: Clear to auscultation bilaterally, no rhonchi, rales, wheezing or rubs. Musculoskeletal: No deformity, tender to palpation over the lumbar spine and the musculature bilaterally, pain with flexion and extension of the low back, patellar reflexes 2+ bilaterally, pain with straight leg test bilaterally at approximately 60?, negative foot drop, grossly normal range of motion, muscle strength strong and equal, peripheral pulse strong, no edema, no cyanosis, normal gait and station Course Course Emergency Course: Portions of this record may have been created with voice recognition software. Level of Care: Express Care Visit Vital Signs Vital signs: Vital signs reviewed MDM - Back Pain/Injury MDM Narrative Medical decision making narrative: At the time of visit patient is resting comfortably on the exam table. I suspect patient has low back strain. Will send in prescription for naproxen and Flexeril. Sedation precautions reviewed with the patient. 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 Recommend wearing a our support brace if she is doing any heavy lifting in the near future. Supportive measures were discussed with the patient she voiced understanding discharge instructions and agrees to treatment plan. Differential Diagnosis Differential diagnosis: Likely lumbar radiculopathy, sciatica, strain of lumbar region, katie
[2023-01-22 11:08] VITALS: BP 145/63; PULSE 65; RESP 20; TEMP 36.6; O2SAT 100
== END 2023-01-22 11:21 | disposition home or self-care (01) ==
PROVIDERS: Emergency Provider Nurse Practitioner Family
DX: S39.012A Strain of muscle, fascia and tendon of lower back, initial encounter (principal); X50.0XXA Overexertion from strenuous movement or load, initial encounter
CPT/HCPCS: 99213; G0463

== ENCOUNTER 2023-11-19 10:21 | Emergency (ER) | payer OTHER, SELFPAY ==
[2023-11-19 10:25] VITALS: BP 123/73; PULSE 74; RESP 20; TEMP 36.6; O2SAT 100
--- NOTE | 2023-11-19 11:04 | ED.GENADULT ---
HPI - General Adult General Chief complaint: Urogenital-Female Stated complaint: Poss UTI Source: patient Mode of arrival: ambulatory Limitations: no limitations History of Present Illness HPI narrative: Pt presents for evaluation of urinary symptoms for the past four days. Symptoms include dysuria, urinary frequency, suprapubic pressure and nausea. No fever, chills, vomiting, low back pain or vaginal discharge. She is currently menstruating. She is sexually active with one male partner. She is adherent to oral contraception. Related Data Home Medications Medication Instructions Recorded Confirmed norgestimate 0.25 mg-ethinyl 1 tablet PO DAILY 09/24/22 11/19/23 estradiol 35 mcg tablet (Estarylla) clonidine HCl 0.1 mg tablet 0.1 mg PO DAILY 11/19/23 11/19/23 quetiapine 25 mg tablet 25 mg PO QHS 11/19/23 11/19/23 Allergies Allergy/AdvReac Type Severity Reaction Status Date / Time measles, mumps, and rubella Allergy Severe Swelling Verified 09/24/22 18:11 vaccine lamotrigine Allergy Intermediate Rash Verified 11/19/23 10:46 Review of Systems Review of Systems: CONSTITUTIONAL: Denies fever, chills, or sweats. EYES: Denies visual changes, redness, or discharge. ENT: Denies rhinorrhea, congestion, sore throat, or otalgia. CARDIOVASCULAR: Denies chest pain, palpitations, or edema. RESPIRATORY: Denies cough or dyspnea. GASTROINTESTINAL: Reports nausea. Denies abdominal pain, vomiting, or diarrhea. GENITOURINARY: Reports urinary frequency, suprapubic pressure and dysuria SKIN: Denies rash or itching. MUSCULOSKELETAL: Denies back pain, joint pain, or myalgia. NEUROLOGIC: Denies headache, numbness, dizziness, or weakness. PSYCHIATRIC: Denies anxiety or depression. REPLACED BY [facility] Past Medical History Medical History Anxiety and depression Knee effusion Sinusitis Surgical History Surgical History History of tonsillectomy Tubal ligation status Family History Family History Mother Family history non-contributory Social History Social History Smoking status: Former smoker Tobacco type: cigarettes Smoking end date: 06/25/19 Substance use: never Living arrangements: with family Gender identity (if verbalized by the patient): Female Sexual Orientation (if Verbalized by the Patient): Straight or Heterosexual Spiritual care concerns: No Exam Narrative: GENERAL: Well-appearing, well-nourished, and in no acute distress. HEAD: Normocephalic, atraumatic. EYES: PERRLA and EOMI. ENT: Nares clear, no rhinorrhea or epistaxis. Mucous membranes moist. Oropharynx without tonsillar hypertrophy exudate or other lesions. Bilateral TMs pearly jefferson nonbulging NECK: Supple. No adenopathy or masses. No carotid bruits or JVD CHEST: Clear to auscultation. No respiratory distress. No wheezes rales or rhonchi HEART: Regular rate and rhythm. No murmur heard. Normal peripheral pulses. ABDOMEN: Soft, nontender, nondistended, normal active bowel sounds. BACK: No CVA tenderness EXTREMITIES: Normal range of motion. No edema. SKIN: Warm, dry, no rash. NEURO: No focal deficits. Alert and oriented x3. PSYCH: Normal mood and affect. Course Course Emergency Course: This is a 28-year-old female who presented for evaluation of urinary symptoms. She has positive leukocytes in urine today. Will send for culture. Will dc with macrobid and pyridium. Increase hydration. OTC agents for symptom management. Follow up with primary provider. Go to the ER for worsening symptoms. Pt in agreement with plan of care. Level of Care: Express Care Visit Vital Signs Vital signs: Vital Signs Temperature 36.6 C 11/19/23 10:25 Pulse Rate 74 11/19/23 10:25 Respiratory Rate 20 0
== END 2023-11-19 11:02 | disposition home or self-care (01) ==
PROVIDERS: Emergency Provider Nurse Practitioner
DX: N39.0 Urinary tract infection, site not specified (principal); F41.8 Other specified anxiety disorders; Z87.891 Personal history of nicotine dependence
CPT/HCPCS: 81003; 87086; 87088; 99213; G0463

== ENCOUNTER 2024-01-23 08:51 | Emergency (ER) | payer OTHER, SELFPAY ==
[2024-01-23 08:55] VITALS: BP 130/71; PULSE 80; RESP 16; TEMP 36.9; O2SAT 100
--- NOTE | 2024-01-23 09:23 | ED.BACK ---
HPI - Back Pain/Injury General Chief Complaint: Back Pain/Injury Stated Complaint: back pain Source: patient Mode of arrival: ambulatory Limitations: no limitations History of Present Illness HPI Narrative: 28-year-old female presented for complaint of mid lower back pain over the past few days. 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 Rates pain 5/10. Denies pain radiating into the hips or legs, numbness, tingling, weakness of the lower extremities, or change in gait, saddle paresthesia or loss of bowel or bladder. denies rash or injury. She has taken ibuprofen and applied heating pad and Justin-Rivera to the sites. Called off work and is requesting a note. Related Data Home Medications Medication Instructions Recorded Confirmed clonidine HCl 0.1 mg tablet 0.1 mg PO DAILY PRN Anxiety 11/19/23 01/23/24 dextroamphetamine-amphetamine 5 mg 5 mg PO QNOON 01/23/24 01/23/24 tablet dextroamphetamine-amphetamine ER 15 mg PO QAM 01/23/24 01/23/24 15 mg 24hr capsule,extend release norgestimate 0.25 mg-ethinyl 1 tablet PO DAILY 01/23/24 01/23/24 estradiol 35 mcg tablet (Isabel) quetiapine 50 mg tablet 50 mg PO HS 01/23/24 01/23/24 topiramate 50 mg tablet 50 mg PO DAILY 01/23/24 01/23/24 Allergies Allergy/AdvReac Type Severity Reaction Status Date / Time measles, mumps, and rubella Allergy Severe Swelling Verified 09/24/22 18:11 vaccine lamotrigine Allergy Intermediate Rash Verified 11/19/23 10:46 Review of Systems Review of Systems: CONSTITUTIONAL: Denies body aches, fever, chills EYES: Denies visual changes CARDIOVASCULAR: Denies chest pain, palpitations, or edema. RESPIRATORY: Denies cough or dyspnea. GASTROINTESTINAL: Denies abdominal pain, nausea, vomiting, or diarrhea. SKIN: Denies rash, itching, or wounds. MUSCULOSKELETAL: reports back pain NEUROLOGIC: Denies headache, numbness, tingling, or weakness. All systems reviewed & are unremarkable except as noted in HPI and below PMFSH Past Medical History Medical History Anxiety and depression Knee effusion Sinusitis Surgical History Surgical History History of tonsillectomy Tubal ligation status Family History Family History Mother Family history non-contributory Social History Social History Smoking status: Former smoker Tobacco type: cigarettes Smoking end date: 06/25/19 Substance use: never Living arrangements: with family Gender identity (if verbalized by the patient): Female Sexual Orientation (if Verbalized by the Patient): Straight or Heterosexual Spiritual care concerns: No Comments At time of signature, I have reviewed and agree with nursing past medical, surgical, social and family history unless otherwise noted. Please see nursing chart for further information. There is no relevant family history pertinent to the presenting complaint Exam Narrative: GENERAL: Well-appearing in no acute distress. HEAD: Normocephalic, atraumatic. EYES: conjunctivae clear NECK: Supple. full ROM CHEST: Speaks in full sentences. No respiratory distress. HEART: Regular rate and rhythm. Normal and equal peripheral pulses. MUSC: No Vertebral point tenderness, no paraspinal tenderness. BLEs with normal strength and sensation, normal range of motion; denies pain with movement. No ecchymosis, No open wounds, or rash. alignment normal, pulse palpable and equal bilaterally, skin warm, dry, pink. Capillary refill less than 3 seconds. Gait steady. SKIN: Warm, dry, no rash. NEURO: Alert and oriented x3. Course Course Emergency Course: Patient is aware of diagnosis, understands and agrees to treatment plan. Anticipatory guidance given. Patient agrees to follow-u
== END 2024-01-23 09:36 | disposition home or self-care (01) ==
PROVIDERS: Emergency Provider Nurse Practitioner Family
DX: S39.012A Strain of muscle, fascia and tendon of lower back, initial encounter (principal); X58.XXXA Exposure to other specified factors, initial encounter; Y99.0 Civilian activity done for income or pay
CPT/HCPCS: 99213; G0463

== ENCOUNTER 2024-04-18 16:34 | Emergency (ER) | payer OTHER, SELFPAY ==
[2024-04-18 16:38] VITALS: BP 146/108; PULSE 113; RESP 18; TEMP 36.4; O2SAT 100
--- NOTE | 2024-04-18 16:47 | PC.NURSE ---
in br to obtain ua spec.
--- NOTE | 2024-04-18 16:54 | ED.FEMALEGU ---
HPI - Female Genitourinary General Chief complaint: Urogenital-Female Stated complaint: STI Treatment Time Seen by Provider: 04/18/24 16:54 Source: patient Mode of arrival: ambulatory Limitations: no limitations History of Present Illness HPI Narrative: 29-year-old female presents with complaint of vaginal discharge. Was seen at [facility]. States they called her today and told her she was positive for gonorrhea but were not able to get her in for the next 2-3 days to be treated. Patient states she is only here for treatment. Does not want any additional testing. All systems reviewed and negative except as noted above. Related Data Home Medications Medication Instructions Recorded Confirmed clonidine HCl 0.1 mg tablet 0.1 mg PO DAILY PRN Anxiety 11/19/23 01/23/24 dextroamphetamine-amphetamine 5 mg 5 mg PO QNOON 01/23/24 01/23/24 tablet dextroamphetamine-amphetamine ER 15 mg PO QAM 01/23/24 01/23/24 15 mg 24hr capsule,extend release norgestimate 0.25 mg-ethinyl 1 tablet PO DAILY 01/23/24 01/23/24 estradiol 35 mcg tablet (Isabel) quetiapine 50 mg tablet 50 mg PO HS 01/23/24 01/23/24 topiramate 50 mg tablet 50 mg PO DAILY 01/23/24 01/23/24 Allergies Allergy/AdvReac Type Severity Reaction Status Date / Time measles, mumps, and rubella Allergy Severe Swelling Verified 04/18/24 16:53 vaccine lamotrigine Allergy Intermediate Rash Verified 04/18/24 16:53 Review of Systems Review of Systems: CONSTITUTIONAL: Denies fever, chills, or sweats. EYES: Denies visual changes, redness, or discharge. ENT: Denies rhinorrhea, congestion, sore throat, or otalgia. CARDIOVASCULAR: Denies chest pain, palpitations, or edema. RESPIRATORY: Denies cough or dyspnea. GASTROINTESTINAL: Denies abdominal pain, nausea, vomiting, or diarrhea. GENITOURINARY: Denies dysuria or hematuria. Reports Vaginal discharge. SKIN: Denies rash or itching. MUSCULOSKELETAL: Denies back pain, joint pain, or myalgia. NEUROLOGIC: Denies headache, numbness, or weakness. PSYCHIATRIC: Denies anxiety or depression. All other systems reviewed are negative, except as documented in HPI. [facility] Past Medical History Medical History Anxiety and depression Knee effusion Sinusitis Surgical History Surgical History History of tonsillectomy Tubal ligation status Family History Family History Mother Family history non-contributory Social History Social History Smoking status: Former smoker Tobacco type: cigarettes Smoking end date: 06/25/19 Substance use: never Living arrangements: with family Gender identity (if verbalized by the patient): Female Sexual Orientation (if Verbalized by the Patient): Straight or Heterosexual Spiritual care concerns: No Comments At time of signature, agree with nursing past medical, surgical, social and family history. There is no relevant family history pertinent to the presenting complaint. Exam Narrative: GENERAL: This is a well-nourished, well-developed patient, in no apparent distress. HEAD: normocephalic, atraumatic. EYES: PERRL. Sclera clear/white. Vision is grossly intact. EARS: External ears normal NOSE: External nose normal NECK: Neck supple, non-tender without lymphadenopathy, masses or thyromegaly. CARDIOVASCULAR: Regular rate and rhythm without murmurs, gallops, or rubs. RESPIRATORY: Clear to auscultation. Breath sounds equal bilaterally. No wheezes, rales, or rhonchi. SKIN: warm, Dry, intact with no suspicious lesions or rash, good texture and turgor. NEURO: awake, alert, and oriented to person, place and time. There were no obvious focal neurologic abnormalities. EXTREMITIES: No joint tenderness, effusion, or edema noted. Course Course Level of Care: Express Care Visit Vital Signs Vital signs: Vital Signs Temperature 36.4 C L 04/18/24 16:38 Pulse Rate 113 H 04/18/24 16:38 Respiratory Rate 18 04/18/24 16:38 Blood Pressure 146/108 H 04/18/24 16:38 Pulse Oximetry 100 04/18/24 16:38 Oxygen Delivery Room Air 04/18/24 16:38 Temperature 36.4 C L 04/18/24 16:38 Pulse Rate 113 H 04/18/24 16:38 Respiratory Rate 18 04/18/24 16:38 Blood Pressure 146/108 H 04/18/24 16:38 Pulse Oximetry 100 04/18/24 16:38 Oxygen Delivery Room Air 04/18/24 16:38 Reviewed MDM - Female Genitourinary MDM Narrative Medical decision making narrative: Patient is aware of diagnosis, understands and agrees to treatment plan. Anticipatory guidance given. Patient agrees to follow-up as directed and is aware of reasons to seek care at the emergency department. Portions of this record may have been created with voice recognition software patient states she tested positive for gonorrhea today. was called by [facility] with her results. I looked over patient's MyChart and she is also positive for bacterial vaginosis. Will treat her with Flagyl. Discharge Plan Discharge Clinical Impression: Gonorrhea, Bacterial vaginosis Patient Disposition: Home, Self-Care Condition: Stable Instructions: Antibiotic Form, Gonorrhea (ED) Additional Instructions: you were treated with an intramuscular injection of Rocephin today. this medication is used to treat gonorrhea. supervisor drying and softening prescription from pharmacy and take as prescribed. Make sure to take antibiotics with a snack. Avoid all sexual activity for the next 2-4 weeks. If you continue to have symptoms see resistance machine welder setter. Prescriptions: New doxycycline hyclate 100 mg capsule 100 mg PO BID 7 Days Qty: 14 0RF metronidazole 500 mg tablet 500 mg PO BID 7 Days Qty: 14 0RF No Action clonidine HCl 0.1 mg tablet 0.1 mg PO DAILY PRN (Reason: Anxiety) norgestimate-ethinyl estradiol [Isabel] 0.25-35 mg-mcg tablet 1 tablet PO DAILY dextroamphetamine-amphetamine 5 mg tablet 5 mg PO QNOON dextroamphetamine-amphetamine 15 mg capsule,extended release 24hr 15 mg PO QAM quetiapine 50 mg tablet 50 mg PO HS topiramate 50 mg tablet 50 mg PO DAILY cyclobenzaprine 10 mg tablet 10 mg PO TID PRN (Reason: muscle spasm) Qty: 10 0RF ibuprofen 800 mg tablet 800 mg PO TID PRN (Reason: pain) Qty: 15 0RF Follow-up/Referrals: PHYSICIAN,METAL NUMERICAL TOOL PROGRAMMER [Primary Care Provider] - Time of Disposition: 17:11
[2024-04-18] MEDS: cefTRIAXone 500 MG, LIDOCAINE HCL 1% LOCAL INJ 1 ML IM (17:13)
== END 2024-04-18 17:32 | disposition home or self-care (01) ==
PROVIDERS: Emergency Provider Nurse Practitioner Family
DX: A54.9 Gonococcal infection, unspecified (principal); N76.0 Acute vaginitis
CPT/HCPCS: 96372; 99213; G0463; J0696; J2003

== ENCOUNTER 2024-04-24 10:30 | Emergency (ER) | payer OTHER, SELFPAY ==
[2024-04-24 10:48] VITALS: BP 120/84; PULSE 78; RESP 18; TEMP 36.5; O2SAT 99
--- NOTE | 2024-04-24 11:17 | ED.URI ---
HPI - URI/Sore Throat General Chief Complaint: Upper Respiratory Infection Stated Complaint: Congestion/Sore Throat/Fever Time Seen by Provider: 04/24/24 11:38 Source: patient, RN notes reviewed and old records reviewed Mode of arrival: ambulatory Limitations: no limitations History of Present Illness HPI Narrative: 29 year old female who presents to [facility] with complaints of headache, body aches, sore throat, nasal congestion with greenish tinged nasal drainage since Sunday. Patient reports that she did have some fevers with highest noted at 101.6F. Patient has taken Ibuprofen, Tylenol, Imodium, nasal congestion flu medication and some Zyrtec. MD elicited complaint: fever, sore throat, rhinorrhea, nasal congestion and other (headache, body aches, diarrhea) Onset (ago): day(s) (day 3 of symptoms) Pain scale (0-10): 5 Description of mucous: yellow and green Able to tolerate fluids by mouth: Yes Treatments prior to arrival: acetaminophen, ibuprofen and other (nasal congestion flu medication, Zyrtec and immodium) Related Data Home Medications Medication Instructions Recorded Confirmed dextroamphetamine-amphetamine 5 mg 5 mg PO QNOON 01/23/24 04/24/24 tablet dextroamphetamine-amphetamine ER 15 mg PO QAM 01/23/24 04/24/24 15 mg 24hr capsule,extend release quetiapine 50 mg tablet 50 mg PO HS 01/23/24 04/24/24 topiramate 50 mg tablet 50 mg PO DAILY 01/23/24 04/24/24 Allergies Allergy/AdvReac Type Severity Reaction Status Date / Time measles, mumps, and rubella Allergy Severe Swelling Verified 04/18/24 16:53 vaccine lamotrigine Allergy Intermediate Rash Verified 04/18/24 16:53 Review of Systems Review of Systems: CONSTITUTIONAL: Reports malaise, chills, sweats, or fever. EYES: Denies visual changes, redness, or discharge. ENT: Reports rhinorrhea, congestion, sinus pain, no otalgia and no sore throat. CARDIOVASCULAR: Denies chest pain, palpitations, or edema. RESPIRATORY: Reports mild cough.? Denies dyspnea. GASTROINTESTINAL: Denies abdominal pain, nausea, vomiting, positive for diarrhea SKIN: Denies rash or itching. MUSCULOSKELETAL:Reports myalgia. NEUROLOGIC: Reports headache. All systems reviewed & are unremarkable except as noted in HPI and below PMFSH Past Medical History Medical History (Updated 04/29/24 @ 08:10 by Nellie Huston NP) ADHD (attention deficit hyperactivity disorder) Anxiety and depression Knee effusion Sinusitis Surgical History Surgical History History of tonsillectomy Tubal ligation status Family History Family History Mother Family history non-contributory Social History Social History Smoking status: Former smoker Tobacco type: cigarettes Smoking end date: 06/25/19 Substance use: never Living arrangements: with family Gender identity (if verbalized by the patient): Female Sexual Orientation (if Verbalized by the Patient): Straight or Heterosexual Spiritual care concerns: No Comments At time of signature, agree with nursing past medical, surgical, social and family history. There is no relevant family history pertinent to the presenting complaint Exam Narrative: GENERAL: Well-appearing, well-nourished, and in no acute distress. HEAD: Normocephalic EYES: PERRLA, conjunctivae clear ENT: Nares clear, turbinates edematous and erythematous, yellowish green discharge, sinus pressure and headache.. Mucous membranes moist. TM pearly jefferson with dull light reflex bilaterally; no tragal tenderness. Oropharynx erythematous without lesions. Tonsils not present and throat without exudate, no drooling, no hoarseness, no trismus, uvula midline. NECK: Supple. No lymphadenopathy CHEST: Clear to auscultation, breath sounds equal. No wheezing, rhonchi, rales, or stridor. No respiratory distress, speaks in full sentences.no cough noted SAO2 99% on room air HEART: Regular rate and rhythm. No murmur heard. SKIN: Warm, dry, no rash. NEURO: Alert and oriented x3. PSYCH: Normal mood and affect Course Course Emergency Course: Patient is aware of diagnosis, understands and agrees to treatment plan.? Anticipatory guidance given.? Patient agrees to follow-up as directed and is aware of reasons to seek care at the emergency department. Portions of this record may have been created with voice recognition software Level of Care: Express Care Visit Vital Signs Vital signs: Vital Signs Temperature 36.5 C 04/24/24 10:48 Pulse Rate 78 04/24/24 10:48 Respiratory Rate 18 04/24/24 10:48 Blood Pressure 120/84 04/24/24 10:48 Pulse Oximetry 99 04/24/24 10:48 Oxygen Delivery Room Air 04/24/24 10:48 Temperature 36.5 C 04/24/24 10:48 Pulse Rate 78 04/24/24 10:48 Respiratory Rate 18 04/24/24 10:48 Blood Pressure 120/84 04/24/24 10:48 Pulse Oximetry 99 04/24/24 10:48 Oxygen Delivery Room Air 04/24/24 10:48 Reviewed MDM - URI/Sore Throat MDM Narrative Medical decision making narrative: Differential diagnosis considered: Aguirre virus, strep pharyngitis, allergic rhinitis, upper respiratory tract infection, sinusitis, rhinosinusitis, nasopharyngitis. viral pharyngitis, otitis media, otitis externa, pneumonia, bronchitis, viral cough syndrome, viral syndrome, and influenza.? Exam findings show no acute concerns or changes; patient is non-toxic appearing and is in no distress.? Patient is appropriate for outpatient treatment and follow-up. Differential Diagnosis Differential diagnosis: Likely upper respiratory infection, viral infection, influenza, pharyngitis and other (Strep pharyngitis, COVID) Medical Records Attestation: I reviewed the patient's medical records. Lab Data Attestation: I reviewed the patient's lab results. Lab results narrative: Influenza A negative, influenza B negative, COVID negative, strep screen negative, culture sent Labs: Lab Results 04/24/24 Range/Units 11:20 POC Influenza A Ag Negative (Negative) POC Influenza B Ag Negative (Negative) POC SARS CoV-2 Ag Negative (Negative) POC Grp A Strep Screen Negative (Negative) Critical Care Time Critical Care Time Critical Care Time: No Discharge Plan Discharge Clinical Impression: Upper respiratory infection Qualifiers: URI type: unspecified URI Qualified Code(s): J06.9 - Acute upper respiratory infection, unspecified Patient Disposition: Home, Self-Care Condition: Stable Instructions: Upper Respiratory Infection (ED) Additional Instructions: Increase fluids especially juices and water [id number] cough and cold medicine of your choice for your symptoms Zyrtec Claritin or Tosha daily Tylenol or ibuprofen for any fever pain heat to the face 20-30 minutes 4-6 times a day for pain Salt water gargles, throat lozenges or throat sprays as desired Your strep test today was negative. A throat culture will be sent to the laboratory for further testing. IF the test is positive, you will receive a phone call within 48 hours and an appropriate antibiotic will be initiated at that time. If your symptoms persist, change or worsen significantly before you can contact your personal physician then please, without delay, go to the emergency department for further evaluation. Follow-up with PCP in 7-10 days or sooner if needed Prescriptions: No Action dextroamphetamine-amphetamine 5 mg tablet 5 mg PO QNOON dextroamphetamine-amphetamine 15 mg capsule,extended release 24hr 15 mg PO QAM quetiapine 50 mg tablet 50 mg PO HS topiramate 50 mg tablet 50 mg PO DAILY ibuprofen 800 mg tablet 800 mg PO TID PRN (Reason: pain) Qty: 15 0RF metronidazole 500 mg tablet 500 mg PO BID 7 Days Qty: 14 0RF Follow-up/Referrals: PHYSICIAN,JUMP ROLL OPERATOR [Primary Care Provider] - Stand Alone Forms: Work/School Release IP Time of Disposition: 11:59 Quality Nika Coma Scale Eyes: Open Verbal: Oriented and Alert Motor: Follows Commands Badger Coma Total Score: 15
[2024-04-24 11:23] LABS: EDCOVIDSCREEN Negative (Negative); EDINFLUASCREEN Negative (Negative); EDINFLUBSCREEN Negative (Negative); EDSTREPNEGPOS1 Negative (Negative)
== END 2024-04-24 12:06 | disposition home or self-care (01) ==
PROVIDERS: Emergency Provider Registered Nurse
DX: J06.9 Acute upper respiratory infection, unspecified (principal); Z20.822 Contact with and (suspected) exposure to COVID-19; F32.A Depression, unspecified; Z87.891 Personal history of nicotine dependence
CPT/HCPCS: 87081; 87426; 87804; 87880; 99213; G0463

== ENCOUNTER 2024-08-09 10:25 | Emergency (ER) | payer OTHER, SELFPAY ==
--- OUTSIDE RECORDS SUMMARY | 2024-08-09 10:34 | XMS_ITS | Patient Health Record ---
Author Organization [facility] Address [address] [place] [address] Care Team Providers Care Outreach Counselor Name Role Phone Xochitl Francisco Primary Care Provider [phone] Tess Morrissey Unavailable [phone] Won Abrams Unavailable [phone] Allergies Allergen (clinical drug ingredient) Drug/Non Drug Allergy documented on EMR Reaction Allergy Type Onset Date Status Measles & Rubella Vaccines Unknown Drug Allergy Active Results Component Value Reference Range Notes 12 Panel Urine Drug Screen Reviewed date:07/15/2024 10:53:01 AM Interpretation: Performing Lab: Notes/Report: THC pos DANIEL neg MOP (OPI) neg AMP neg MET neg BAR neg BZO neg MDMA neg MTD neg OXY neg PCP neg BUP neg Reason For Referral No Information Medications Medication SIG (Take, Route, Frequency, Duration) Notes Start Date End Date Status QUEtiapine Fumarate 50 MG 1 tablet at be dtime Orally Once a day for 30 days Active Topiramate 25 MG 1 tablet Orally Once a day for 90 days Active Topiramate 50 MG TAKE 1 TABLET BY [facility] DAILY for 90 Active Amphetamine-Dextroamphetam ine 5 MG 1 tablet Orally Once a day in the afternoon. for 30 days 07/15/2024 Active Amphetamine-Dextroamphet ER 15 MG 1 capsule in the morning Orally Once a day for 30 days 07/15/2024 Active QUEtiapine Fumarate ER 50 MG 1 tablet in the evening Orally Once a day for 30 days Active Social History Tobacco Use: Social History Observation Description Date Details (start date - stop date) Never Smoker NA - NA Tobacco Control (Standard) Question Answer Notes Tobacco use: Nonsmoker Problems Problem Type SNOMED Code ICD Code Onset Dates Problem Status W/U Status Risk Notes Problem Generalized anxiety disorder (19243266) Generalized anxiety disorder (F41.1) Active confirmed Problem Attention deficit hyperactivity disorder (384758384) ADHD (attention deficit hyperactivity disorder) (F90.9) Active confirmed Problem Bipolar affective disorder (31647282) Bipolar affective disorder (F31.9) Active confirmed Problem Sleep disturbance (72781401) Sleep disturbance, unspecified (G47.9) Active confirmed Vital Signs Heart Rate 81 /min 07/15/2024 Respiratory Rate 16 /min 07/15/2024 Oximetry 98 % 07/15/2024 Blood pressure diastolic 82 mm Hg 07/15/2024 Height 67.5 in 07/15/2024 Blood pressure systolic 126 mm Hg 07/15/2024 Weight 226 lbs 07/15/2024 BMI 34.87 kg/m2 07/15/2024 Encounters Encounter Location Date Provider Diagnosis [address] [facility] [place] [address] 10/29/2023 Xochitl Francisco Bipolar affective disorder F31.9 ; Generalized anxiety disorder F41.1 ; Sleep disturbance, unspecified G47.9 and History of benzodiazepine use Z87.898 [facility] [address] [place] [address] 11/20/2023 Xochitl Francisco Generalized anxiety disorder F41.1 ; Bipolar affective disorder F31.9 ; Sleep disturbance, unspecified G47.9 and History of benzodiazepine use Z87.[address] [place] [address] 11/29/2023 Xochitl Francisco Generalized anxiety disorder F41.1 ; Bipolar affective disorder F31.9 ; Sleep disturbance, unspecified G47.9 and History of benzodiazepine use Z87.[address] [place] [address] 12/11/2023 Won Abrams Bipolar affective disorder F31.9 ; Generalized anxiety disorder F41.1 and ADHD (attention deficit hyperactivity disorder) F90.[address] [facility] [place] [address] 01/02/2024 Won Abrams ADHD (attention deficit hyperactivity disorder) F90.9 ; Bipolar affective disorder F31.9 ; Generalized anxiety disorder F41.1 and Sleep disturbance, unspecified G47.[address] [address] 02/18/2024 Won Abrams Bipolar affective disorder F31.9 ; Generalized anxiety disorder F41.1 ; Sleep disturbance, unspecified G47.9 and ADHD (attention deficit hyperactivity disorder) F90.9 [facility] [address] [place] [address] 07/15/2024 Xochitl Francisco Nutritional counseli ng Z71.3 ; Bipolar affective disorder F31.9 ; Generalized anxiety disorder F41.1 ; Sleep disturbance, unspecified G47.9 and ADHD (attention deficit hyperactivity disorder) F90.[address] [address] 11/15/2023 Xochitl Francisco [address] [address] 01/31/2024 Tess Morrissey ADHD (attention deficit hyperactivity disorder) F90.9 and Bipolar affective disorder F31.[address] [address] 02/18/2024 Won Abrams [address] [address] 02/20/2024 Won Abrams [address] [address] 03/19/2024 Xochitl Francisco Bipolar affective disorder F31.9 and ADHD (attention deficit hyperactivity disorder) F90.[address] [place] [address] 04/07/2024 Xochitl Francisco Bipolar affective disorder F31.9 [facility] [address], [place] [address] 05/06/2024 Xochitl Francisco [address] [address] 07/16/2024 Xochitl Francisco [address] [address] 04/20/2024 Xochitl Garciannan [address] [address] 04/21/2024 Xochitl Francisco ADHD (attention deficit hyperactivity disorder) F90.9 and Bipolar affective disorder F31.[address] [address] 04/28/2024 Xochitl Francisco [address] [address] 05/01/2024 Xochitl Francisco Assessments Encounter Date Diagnosis (ICD Code) Assessment Notes Treatment Notes Treatment Clinical Notes Section Notes 10/29/2023 Bipolar affective disorder (ICD-10 - F31.9) Hx of some improvement with mood stabilization at 75 mg but continued depression, restarting and increasing to 100mg. 10/29/2023 Generalized anxiety disorder (ICD-10 - F41.1) Discussed r/b/se. Hx of struggling with BZD use, has also tried hydroxyzine, buspar- not good candidate for propranolol with asthma 11/20/2023 Generalized anxiety disorder (ICD-10 - F41.1) Discussed r/b/se. Hx of struggling with BZD use, has also tried hydroxyzine, buspar- not good candidate for propranolol with asthma 11/29/2023 Generalized anxiety disorder (ICD-10 - F41.1) Discussed r/b/se. 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 Client having dwindling efficacy of stimulant in afternoon. Agreeable to afternoon booster. No other treatment plan changes at this time. 01/02/2024 Bipolar affective disorder (ICD-10 - F31.9) Client interested in possibility switching to Strattera as a shelter solution once done with [employer] school. Client having dwindling efficacy of stimulant in afternoon. Agreeable to afternoon booster. No other treatment plan changes at this time. 12/11/2023 Bipolar affective disorder (ICD-10 - F31.9) Client reports stabilized mood after increase of Seroquel at last visit with her usual provider. States that she and her provider had discussed starting Adderall to treat underlying ADHD as she is in [employer] school and starting to do poorly due to focus/concentra tion issues that date back to her childhood. Has prior dx of ADHD and has been on Adderall in the past. Discussed with client other options including non-stimulant based medications and recommended this as a first line options, particularly given her history of addiction. Also discussed phentermine as an option to combine with topiramate as this may give enough coverage to treat ADHD but also work for client's c/o binge-eating. Client is very resistant to these recommendations . She breaks down crying, stating No one believes that I have these problems . Assured client that provider does believe her, but that it is a careful balance between treating her bipolar and ADHD and that she also needs to understand the risks involved with taking a level 2 controlled substance. Client wishes to proceed with a trial of Adderall XR. Will start client at 15 mg and discussed notifying office should anger/irritabil ity, or manic behaviors occur. Client verbalizes understanding. Clonidine discontinued as client has not taken for weeks. No other treatment plan changes. 01/31/2024 ADHD (attention deficit hyperactivity disorder) (ICD-10 - F90.9) 02/18/2024 Bipolar affective disorder (ICD-10 - F31.9) Client with increases in depression/and some feelings of perceived mood lability. Discussed changing quetiapine to ER form and increasing dosage after client requests to be placed on antidepressant. Psychoeducation provided on treatment for bipolar as client has been placed on SSRIs in past and has lost some jobs when I got manic before and my employer didn't understand . Discussed this would likely be the safest option as client has job interview tomorrow. Client would like to continue on stimulant for now with plan to possibly change to Strattera in future. Client aware that will need in office visit soon to stay on stimulant. 03/19/2024 Bipolar affective disorder (ICD-10 - F31.9) 04/07/2024 Bipolar affective disorder (ICD-10 - F31.9) 04/21/2024 ADHD (attention deficit hyperactivity disorder) (ICD-10 - F90.9) 07/15/2024 Nutritional counseling (ICD-10 - Z71.3) 07/15/2024 Bipolar affective disorder (ICD-10 - F31.9) Discussed r/b/se. To start extra 25 mg topiramate in 1 week. 04/21/2024 Bipolar affective disorder (ICD-10 - F31.9) 03/19/2024 ADHD (attention deficit hyperactivity disorder) (ICD-10 - F90.9) 02/18/2024 Generalized anxiety disorder (ICD-10 - F41.1) Client with increases in depression/and some feelings of perceived mood lability. Discussed changing quetiapine to ER form and increasing dosage after client requests to be placed on antidepressant. Psychoeducation provided on treatment for bipolar as client has been placed on SSRIs in past and has lost some jobs when I got manic before and my employer didn't understand . Discussed this would likely be the safest option as client has job interview tomorrow. Client would like to continue on stimulant for now with plan to possibly change to Strattera in future. Client aware that will need in office visit soon to stay on stimulant. 01/31/2024 Bipolar affective disorder (ICD-10 - F31.9) 12/11/2023 Generalized anxiety disorder (ICD-10 - F41.1) Client reports stabilized mood after increase of Seroquel at last visit with her usual provider. States that she and her provider had discussed starting Adderall to treat underlying ADHD as she is in [employer] school and starting to do poorly due to focus/concentra tion issues that date back to her childhood. Has prior dx of ADHD and has been on Adderall in the past. Discussed with client other options including non-stimulant based medications and recommended this as a first line options, particularly given her history of addiction. Also discussed phentermine as an option to combine with topiramate as this may give enough coverage to treat ADHD but also work for client's c/o binge-eating. Client is very resistant to these recommendations . She breaks down crying, stating No one believes that I have these problems . Assured client that provider does believe her, but that it is a careful balance between treating her bipolar and ADHD and that she also needs to understand the risks involved with taking a level 2 controlled substance. Client wishes to proceed with a trial of Adderall XR. Will start client at 15 mg and discussed notifying office should anger/irritabil ity, or manic behaviors occur. Client verbalizes understanding. Clonidine discontinued as client has not taken for weeks. No other treatment plan changes. 01/02/2024 Generalized anxiety disorder (ICD-10 - F41.1) Client interested in possibility switching to Strattera as a shelter solution once done with [employer] school. Client having dwindling efficacy of stimulant in afternoon. Agreeable to afternoon booster. No other treatment plan changes at this time. 11/29/2023 Bipolar affective disorder (ICD-10 - F31.9) Hx of doing well with Lamictal in past but when restarted recently, client had rash start. 11/20/2023 Bipolar affective disorder (ICD-10 - F31.9) Hx of doing well with Lamictal but had rash start. 10/29/2023 Sleep disturbance, unspecified (ICD-10 - G47.9) Reports hx of doing well with this medication at 25-50mg. 10/29/2023 History of benzodiazepine use (ICD-10 - Z87.898) None since 202111/20/2023 Sleep disturbance, unspecified (ICD-10 - G47.9) Reports hx of doing well with this medication at 25-50mg. 11/29/2023 Sleep disturbance, unspecified (ICD-10 - G47.9) Reports hx of doing well with this medication at 25-50mg. 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 Client having dwindling efficacy of stimulant in afternoon. Agreeable to afternoon booster. No other treatment plan changes at this time. 12/11/2023 ADHD (attention deficit hyperactivity disorder) (ICD-10 - F90.9) Client reports stabilized mood after increase of Seroquel at last visit with her usual provider. States that she and her provider had discussed starting Adderall to treat underlying ADHD as she is in [employer] school and starting to do poorly due to focus/concentra tion issues that date back to her childhood. Has prior dx of ADHD and has been on Adderall in the past. Discussed with client other options including non-stimulant based medications and recommended this as a first line options, particularly given her history of addiction. Also discussed phentermine as an option to combine with topiramate as this may give enough coverage to treat ADHD but also work for client's c/o binge-eating. Client is very resistant to these recommendations . She breaks down crying, stating No one believes that I have these problems . Assured client that provider does believe her, but that it is a careful balance between treating her bipolar and ADHD and that she also needs to understand the risks involved with taking a level 2 controlled substance. Client wishes to proceed with a trial of Adderall XR. Will start client at 15 mg and discussed notifying office should anger/irritabil ity, or manic behaviors occur. Client verbalizes understanding. Clonidine discontinued as client has not taken for weeks. No other treatment plan changes. 02/18/2024 Sleep disturbance, unspecified (ICD-10 - G47.9) Client with increases in depression/and some feelings of perceived mood lability. Discussed changing quetiapine to ER form and increasing dosage after client requests to be placed on antidepressant. Psychoeducation provided on treatment for bipolar as client has been placed on SSRIs in past and has lost some jobs when I got manic before and my employer didn't understand . Discussed this would likely be the safest option as client has job interview tomorrow. Client would like to continue on stimulant for now with plan to possibly change to Strattera in future. Client aware that will need in office visit soon to stay on stimulant. 07/15/2024 Generalized anxiety disorder (ICD-10 - F41.1) Encouraged therapy. 07/15/2024 Sleep disturbance, unspecified (ICD-10 - G47.9) Continue Seroquel. 02/18/2024 ADHD (attention deficit hyperactivity disorder) (ICD-10 - F90.9) Client with increases in depression/and some feelings of perceived mood lability. Discussed changing quetiapine to ER form and increasing dosage after client requests to be placed on antidepressant. Psychoeducation provided on treatment for bipolar as client has been placed on SSRIs in past and has lost some jobs when I got manic before and my employer didn't understand . Discussed this would likely be the safest option as client has job interview tomorrow. Client would like to continue on stimulant for now with plan to possibly change to Strattera in future. Client aware that will need in office visit soon to stay on stimulant. 11/29/2023 History of benzodiazepine use (ICD-10 - Z87.898) None since 202111/20/2023 History of benzodiazepine use (ICD-10 - Z87.898) None since 202107/15/2024 ADHD (attention deficit hyperactivity disorder) (ICD-10 - F90.9) Discussed possible increase- client has been on medications for months at this time- will reassess at next appt. 11/29/2023 Other Client with hx of ADHD and being on Adderall. Currently in school to become [employer]. Discussed possibility of attention medication once mood stabilization noted, topamax increase to 50mg today along with Seroquel. Reasons, potential benefits, potential risks, interactions and side effects of all medications were discussed. The Patient/Guardian asked appropriate questions, appeared to understand the answers, and decided to accept the treatment and continue being followed. Alternatives and expected course without treatment were reviewed. The Patient/Guardian is aware of the need to contact the office or return for an earlier appointment if any problems or concerns arise. May also contact the 24-hour crisis hotline ([facility]), refer to the closest emergency room or call 911 if new symptoms arise of existing symptoms worsen. The Patient/Guardian is aware that this would apply to symptoms like: suicidal ideation, homicidal ideation, high risk behaviors, manic symptoms, psychotic symptoms, physical symptoms, or any other symptoms that may be dangerous to self or others. Greater than 50% of time spent on coordination and counseling where psychopharmacology as well as psychotherapeutic interventions were discussed along with review of treatments in the past. Education provided concerning need for adequate hydration. Patient/Guardian verbalized understanding of education, treatment plan and follow up. This session was completed telephonically with client/parental/floridalma obregon consent: Unable to determine movement status, assess appearance, affect, AIMS, or vital signs. [place]02/2024 [place]. Discussed sleep hygiene and caffeine intake with encouragement to limit electronic devices an hour before bed and to limit caffeine after 3:00pm. Exercise benefits for mood and health discussed. Psychoeducation regarding psychiatric illness provided. Client was educated about risks and benefits of medication, alternatives to medication, off label uses of medication, suicidal ideation with SSRIs, self-administration and compliance with medication along with how to safely store medication. Verbal informed consent obtained. Client agrees to return sooner if symptoms worsen or if suicidal or homicidal ideations occur. Client has the phone number to the 24-hour crisis line at [facility]. Questions addressed. Client verbalized understanding of all information and is agreeable to treatment plan. 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 Client having dwindling efficacy of stimulant in afternoon. Agreeable to afternoon booster. No other treatment plan changes at this time. 12/11/2023 [place]. Discussed sleep hygiene and caffeine intake with encouragement to limit electronic devices an hour before bed and to limit caffeine after 3:00pm. Exercise benefits for mood and health discussed. Psychoeducation regarding psychiatric illness provided. Client was educated about risks and benefits of medication, alternatives to medication, off label uses of medication, suicidal ideation with SSRIs, self-administration and compliance with medication along with how to safely store medication. Verbal informed consent obtained. Client agrees to return sooner if symptoms worsen or if suicidal or homicidal ideations occur. Client has the phone number to the 24-hour crisis line at [facility]. Questions addressed. Client verbalized understanding of all information and is agreeable to treatment plan. Client reports stabilized mood after increase of Seroquel at last visit with her usual provider. States that she and her provider had discussed starting Adderall to treat underlying ADHD as she is in [employer] school and starting to do poorly due to focus/concentra tion issues that date back to her childhood. Has prior dx of ADHD and has been on Adderall in the past. Discussed with client other options including non-stimulant based medications and recommended this as a first line options, particularly given her history of addiction. Also discussed phentermine as an option to combine with topiramate as this may give enough coverage to treat ADHD but also work for client's c/o binge-eating. Client is very resistant to these recommendations . She breaks down crying, stating No one believes that I have these problems . Assured client that provider does believe her, but that it is a careful balance between treating her bipolar and ADHD and that she also needs to understand the risks involved with taking a level 2 controlled substance. Client wishes to proceed with a trial of Adderall XR. Will start client at 15 mg and discussed notifying office should anger/irritabil ity, or manic behaviors occur. Client verbalizes understanding. Clonidine discontinued as client has not taken for weeks. No other treatment plan changes. 10/29/2023 Other Reasons, potential benefits, potential risks, interactions and side effects of all medications were discussed. The Patient/Guardian asked appropriate questions, appeared to understand the answers, and decided to accept the treatment and continue being followed. Alternatives and expected course without treatment were reviewed. The Patient/Guardian is aware of the need to contact the office or return for an earlier appointment if any problems or concerns arise. May also contact the 24-hour crisis hotline ([facility]), refer to the closest emergency room or call 911 if new symptoms arise of existing symptoms worsen. The Patient/Guardian is aware that this would apply to symptoms like: suicidal ideation, homicidal ideation, high risk behaviors, manic symptoms, psychotic symptoms, physical symptoms, or any other symptoms that may be dangerous to self or others. Greater than 50% of time spent on coordination and counseling where psychopharmacology as well as psychotherapeutic interventions were discussed along with review of treatments in the past. Education provided concerning need for adequate hydration. Patient/Guardian verbalized understanding of education, treatment plan and follow up. 11/20/2023 Other Reasons, potential benefits, potential risks, interactions and side effects of all medications were discussed. The Patient/Guardian asked appropriate questions, appeared to understand the answers, and decided to accept the treatment and continue being followed. Alternatives and expected course without treatment were reviewed. The Patient/Guardian is aware of the need to contact the office or return for an earlier appointment if any problems or concerns arise. May also contact the 24-hour crisis hotline ([facility]), refer to the closest emergency room or call 911 if new symptoms arise of existing symptoms worsen. The Patient/Guardian is aware that this would apply to symptoms like: suicidal ideation, homicidal ideation, high risk behaviors, manic symptoms, psychotic symptoms, physical symptoms, or any other symptoms that may be dangerous to self or others. Greater than 50% of time spent on coordination and counseling where psychopharmacology as well as psychotherapeutic interventions were discussed along with review of treatments in the past. Education provided concerning need for adequate hydration. Patient/Guardian verbalized understanding of education, treatment plan and follow up. 02/18/2024 [place] issues noted. Discussed sleep hygiene and caffeine intake with encouragement to limit electronic devices an hour before bed and to limit caffeine after 3:00pm. Exercise benefits for mood and health discussed. Psychoeducation regarding psychiatric illness provided. Client was educated about risks and benefits of medication, alternatives to medication, off label uses of medication, suicidal ideation with SSRIs, self-administration and compliance with medication along with how to safely store medication. Verbal informed consent obtained. Client agrees to return sooner if symptoms worsen or if suicidal or homicidal ideations occur. Client has the phone number to the 24-hour crisis line at [facility]. Questions addressed. Client verbalized understanding of all information and is agreeable to treatment plan. Client with increases in depression/and some feelings of perceived mood lability. Discussed changing quetiapine to ER form and increasing dosage after client requests to be placed on antidepressant. Psychoeducation provided on treatment for bipolar as client has been placed on SSRIs in past and has lost some jobs when I got manic before and my employer didn't understand . Discussed this would likely be the safest option as client has job interview tomorrow. Client would like to continue on stimulant for now with plan to possibly change to Strattera in future. Client aware that will need in office visit soon to stay on stimulant. 07/15/2024 Other PDMP checked without concerns. Reasons, potential benefits, potential risks, interactions and side effects of all medications were discussed. The Patient/Guardian asked appropriate questions, appeared to understand the answers, and decided to accept the treatment and continue being followed. Alternatives and expected course without treatment were reviewed. The Patient/Guardian is aware of the need to contact the office or return for an earlier appointment if any problems or concerns arise. May also contact the 24-hour crisis hotline (R), refer to the closest emergency room or call 911 if new symptoms arise of existing symptoms worsen. The Patient/Guardian is aware that this would apply to symptoms like: suicidal ideation, homicidal ideation, high risk behaviors, manic symptoms, psychotic symptoms, physical symptoms, or any other symptoms that may be dangerous to self or others. Greater than 50% of time spent on coordination and counseling where psychopharmacology as well as psychotherapeutic interventions were discussed along with review of treatments in the past. Education provided concerning need for adequate hydration. Patient/Guardian verbalized understanding of education, treatment plan and follow up. This session was completed telephonically with client/parental/floridalma rdian consent: Unable to determine movement status, assess appearance, affect, AIMS, or vital signs. Plan Of Treatment Next Appt Details Provider Name:Xochitl peters, 08/11/2024 03:00:00 PM, [address] [facility] [address], [place], [address], Insurance Providers Payer Name Payer Address Payer Phone Subscriber Number Group Number Insured Name Patient Relationship to Insured Coverage Start Date Coverage End Date [employer] [address] [place] [address] [id number] Sandra Perdomo Self - patient is the insured 4 [employer] [address] [place] [address] [id number] Sandra Perdomo Self - patient is the insured 4 Medical (General) History Medical History History ICD Code Asthma
--- OUTSIDE RECORDS SUMMARY | 2024-08-09 10:35 | XMS_ITS | Clinical Summary ---
Author Organization [facility] Address [address] [place] [address] Care Team Providers Care Hand Woven Carpet And Rug Mender Name Role Phone No, Physician Primary Care Provider [phone] Allergies Active Allergy Reactions Criticality Noted Date Comments Measles, Mumps, Rubella,And Varicella Live Vaccine Anaphylaxis High 12/04/2019 Medications valACYclovir (VALTREX) 500 mg tablet TAKE 2 TABLETS BY MOUTH EVERY DAY FOR 5 DAYS 10/13/19 22 Active naproxen (NAPROSYN) 500 mg tabletIndications: Sprain of anterior talofibular ligament of right ankle, initial encounter Take 1 tablet (500 mg total) by mouth 2 (two) times a day as needed for pain (pain) P.r.n. pain and swelling. Collaborating physician Mike Capps MD 20 tablet 06/03/20 24 Active traMADoL (ULTRAM) 50 mg tabletIndications: Sprain of anterior talofibular ligament of right ankle, initial encounter Take 1 tablet (50 mg total) by mouth every 6 (six) hours P.r.n. pain not relieved by naproxen alone. Take with food. Collaborating physician Mike Capps MD 15 tablet 06/03/20 24 Active rizatriptan (MAXALT) 10 mg tabletIndications: Migraine Take 1 tablet (10 mg total) by mouth once as needed for migraine May repeat in 2 hours if unresolved. Do not exceed 30 mg in 24 hours. 9 tablet 06/06/20 24 025 Active ondansetron ODT (ZOFRAN-ODT) 4 mg disintegrating tablet Take 1 tablet (4 mg total) by mouth every 8 (eight) hours as needed for nausea or vomiting 20 tablet 06/06/20 24 Active Active Problems Problem Noted Date Diagnosed Date Sprain of anterior talofibular ligament of right ankle 06/03/2024 Calcaneal spur of foot, right 06/03/2024 Inflamed epidermoid cyst of skin 10/26/2021 Overview (10/26/2021): Added automatically from request for surgery [id number] Borderline personality disorder 12/04/2019 Resolved Problems Problem Noted Date Diagnosed Date Resolved Date Acute bilateral otitis media 01/25/2019 12/03/2019 Acute pharyngitis 01/25/2019 12/03/2019 Strep throat exposure 01/25/20192019 Encounters Date Type Department Care Team Description 06/11/2024 7:20 PM BARK SCALER E-Visit [facility] Care [address] [place] [phone] Annette Quintero, CURLY Virtual Care Visit 06/11/2024 Patient Self-Triage [facility] HealthCare/ Physicians [address] [place] [phone] Mychart, Generic Provider 06/07/2024 9:40 AM BARK SCALER E-Visit [address] [phone] Etta Bartlett NP Your Medications 06/07/2024 Patient Self-Triage [facility]/ Physicians [address] [place] [phone] Mychart, Generic Provider 06/06/2024 8:00 PM BARK SCALER Telemedicine [address] [phone] Beth Thibodeaux NP Migraine without aura and without status migrainosus, not intractable (Primary Dx) 06/06/2024 Patient Self-Triage [facility] HealthCare/ Physicians [address] [place] [phone] Mychart, Generic Provider 06/03/2024 11:05 AM BARK SCALER - 06/03/2024 12:27 PM BARK SCALER Emergency [facility] Emergency Department [address] [place] [address] Sprain of anterior talofibular ligament of right ankle, initial encounter (Primary Dx); Calcaneal spur of foot, right Discharge Disposition: Discharge to home or self care 05/31/2024 8:15 PM BARK SCALER Telemedicine [facility] Medical [facility] Virtual Care [address] [place] [phone] Beth Thibodeaux NP Fall, initial encounter (Primary Dx); Acute right ankle pain; Swelling of left middle finger 05/31/2024 Patient Self-Triage [facility] Physicians [address] [place] [address] Mychart, Generic Provider from Last 3 Months Surgical History Surgery Date Site/Laterality Comments TUBAL LIGATION TONSILLECTOMY 06/25/2000 - 06/24/2001 Medical History Medical History Date Comments Sleep difficulties Anxiety Headache ADHD (attention deficit hyperactivity disorder) Depression Ovarian cyst Genital herpes genital herpes Family History Medical History Relation Name Comments Cancer Maternal Grandmother Relation Name Status Comments Maternal Grandmother Other colon c ancer Social History Tobacco Use Types Packs/Day Years Used Date Smoking Tobacco: Every Day Cigarettes 0.5 5 Smokeless Tobacco: Never Alcohol Use Standard Drinks/Week Comments Yes 0 (1 standard drink = 0.6 oz pur e alcohol) rarely AUDIT-C Answer Date Recorded Q1: How often do you have a drink containing alc ohol? Never 10/28/2021 Average Number of Drinks Not on file 022 Frequency of Binge Drinking Not on file 11/2021 PHQ-2 Answer Date Recorded PHQ-2 Total Score (If total score is 3 or more points, staff should administer the PHQ-9) 2 12/04/2019 Personal Safety Answer Date Recorded Have you ever been in or are you currently in a harmful physical or emotional relationship or is someone making you feel afraid or unsafe? Denies 06/03/2024 Comments No Sex and Gender Information Value Date Recorded Sex Assigned at Not on file Legal Sex Female 9:16 AM BARK SCALER Gender Identity Not on file Sexual Orientation Not on file Obstetrics History Para Term AB IAB SAB Ectopic Multiple Livin g Live Births 2 1 1 0 0 0 0 0 0 1 1 Date Outcome GA Total Labor Labor/2nd/3rd Weight Sex Type Anes PTL Ailyn A1 A5 Name Clin Term Last Filed Vital Signs Vital Sign Reading Time Taken Comments Blood Pressure 121/73 06/03/2024 11:29 AM BARK SCALER Pulse 80 06/03/2024 11:29 AM BARK SCALER Temperature 36.5 C (97.7 F) 06/03/2024 9:01 AM BARK SCALER Respiratory Rate 18 06/03/2024 11:29 AM BARK SCALER Oxygen Saturation 98% 06/03/2024 11:29 AM BARK SCALER Inhaled Oxygen Concentration - - Weight 103.4 kg (228 lb) 06/03/2024 9:01 AM BARK SCALER Height 170.2 cm (5' 7 ) 06/03/2024 9:01 AM BARK SCALER Body Mass Index 35.71 06/03/2024 9:01 AM BARK SCALER Plan of Treatment Health Maintenance Due Date Last Done Comments Cervical Cancer Screening 1995 Hepatitis C Screening 1995 Pneumococcal vaccine <65 (1 of 2 - PCV) 02/26/2002 Varicella Vaccines (1 of 2 - 13+ 2-dose series) 02/26/2009 Regular Well Visit/Exam 18-64 02/26/2014 DTaP/Tdap/Td Vaccine (7 - Td or Tdap) 04/03/2017 04/03/2007, 12/20/2001, 09/01/1997, Additional history exists Depression Screening 12/02/2020 12/03/2019, 12/03/19 20 Covid-19 Vaccine (3 - 2023-2 5 season) 2024 07/05/2021, 05/25/2021 Influenza Vaccine (#1) 2024 , 04/24/2016, 06/04/2013, Additional history exists HPV Vaccines Completed 12/31/2007, 05/25, 04/03/2007 Procedures Procedure Name Priority Date/Time Associated Diagnosis Comments XR ANKLE RIGHT 3 OR MORE VIEWS ED 06/03/2024 9:31 AM BARK SCALER from Last 3 Months Results * XR Ankle Right 3+ views (06/03/2024 9:31 AM BARK SCALER) Anatomical Region Laterality Modality Lower Extremities, Ankle Right Compute d Radiography 06/03/2024 9:55 AM BARK SCALER Narrative 06/03/2024 9:56 AM BARK SCALER EXAM DESCRIPTION: XR ANKLE RIGHT 3 OR MORE VIEWS REASON FOR STUDY: pain Pt ambulatory to triage for R ankle pain. Pt states she rolled her ankle Sunday and has had pain since. Pt states swelling started yesterday. Pt reports taking tylenol and Ibuprofen for pain and swelling. TECHNIQUE: 3 radiographic view(s) of the right ankle . COMPARISON: None FINDINGS: BONES/JOINTS: There is no acute fracture, malalignment or osseous abnormality. A large calcaneal spur is seen. SOFT TISSUES: Within normal limits. IMPRESSION: Calcaneal spur, no other findings. THIS IS AN ELECTRONICALLY VERIFIED FINAL REPORT 06/03/2024 9:56 AM - Electronically signed by Ventura Vyas M.D. INDIA: INDIA Report ID: [id number] Reading Location: [id number] Procedure Note Kaushal Vyas MD - 06/03/2024 EXAM DESCRIPTION: XR ANKLE RIGHT 3 OR MORE VIEWS REASON FOR STUDY: pain Pt ambulatory to triage for R ankle pain. Pt states she rolled her ankle Sunday and has had pain since. Pt states swelling started yesterday. Pt reports taking tylenol and Ibuprofen for pain and swelling. TECHNIQUE: 3 radiographic view(s) of the right ankle . COMPARISON: None FINDINGS: BONES/JOINTS: There is no acute fracture, malalignment or osseousabnormality. A large calcaneal spur is seen. SOFT TISSUES: Within normal limits. IMPRESSION: Calcaneal spur, no other findings. THIS IS AN ELECTRONICALLY VERIFIED FINAL REPORT 06/03/2024 9:56 AM - Electronically signed by Ventura OSBORNE: INDIA Report ID: [id number] Reading Location: [id number] Elisabeth Mars MD IMG XR PROCEDURES Final R esult from Last 3 Months Insurance Member Subscriber Plan / Payer ( fective 2019-Present) Name:Sandra Perdomo Relation to Subscriber:Self Name:Sandra Perdomo Payer ID:[id number] (NA) Type:MEDICAID RISK OTHER Address: [address] Advance Directives For more information, please contact: [phone] * Full Code (Latest Code Status on File) Date Activated Date Inactivated Comments 12/04/2019 4:26 AM 12/04/2019 7:44 PM Care Teams Hand Woven Carpet And Rug Mender Relationship Specialty Start Date End Date No, Physician PCP - General 07/15/19
--- OUTSIDE RECORDS SUMMARY | 2024-08-09 10:35 | XMS_ITS | Clinical Summary ---
Author Organization [facility] Address [address] [place] [address] Phone Care Team Providers Care Mangle Roller Name Role Phone Provider, Not On File Primary Care Provider Unav ailable Allergies Active Allergy Reactions Criticality Noted Date Comments Lamotrigine Rash 11/21/2023 Measles And Rubella Virus Vaccine Anaphylaxis 0 03/05/2016 Medications citalopram (CELEXA) 20 MG Tablet Take 20 mg by mouth daily. Active Meloxicam 15 MG Tablet Take 1 Tab by mouth daily. 10 Tab 12/04/2017 Active ALBUTEROL SULFATE IN take by inhalation. Active ARIPiprazole (ABILIFY) 5 MG Tablet Take 5 mg by mouth daily. Active buPROPion (WELLBUTRIN) 150 MG XL tablet Take 150 mg by mouth every morning. Active ergocalciferol (VITAMIN D) 22305 UNIT Capsule Take 50,000 Units by mouth. Active escitalopram (LEXAPRO) 20 MG Tablet Take 20 mg by mouth daily. Active lithium (LITHOBID) 300 MG Tablet Controlled Release Take 300 mg by mouth 2 times daily. Active Topiramate (TOPAMAX) 50 MG Tablet Take 50 mg by mouth 2 times daily. Active traZODone (DESYREL) 50 MG Tablet Take 50 mg by mouth nightly. Active famotidine (PEPCID) 20 MG Tablet Take 1 Tablet by mouth 2 times daily. 60 Tablet 10/08/2020 Active ibuprofen (MOTRIN) 600 MG Tablet Take 1 Tablet by mouth every 8 hours. 20 Tablet 01/05/2022 Active naproxen (NAPROSYN) 500 MG Tablet Take 1 Tablet by mouth 2 times daily as needed for Mild or more severe pain. 20 Tablet 04/11/2022 Active cyclobenzaprine (FLEXERIL) 5 MG Tablet Take 1 Tablet by mouth 3 times daily as needed for Muscle spasms. 15 Tablet 08/05/2022 Active naproxen (NAPROSYN) 500 MG Tablet Take 1 Tablet by mouth 2 times daily as needed for Moderate or more severe pain. 20 Tablet 08/05/2022 Active traMADol (ULTRAM) 50 MG TabletIndicatio ns:Urinary tract infection Take 1 Tablet by mouth every 6 hours as needed for Moderate or more severe pain. 15 Tablet 11/21/2023 Active Family History Medical History Relation Name Comments Attention Deficit Hyperactivity Disorder Brother Depression Mother Migraines Mother Relation Name Status Comments Brother Mother Social History Tobacco Use Types Packs/Day Years Used Date Smoking Tobacco: Former Cigarettes Q uit: 10/24/2019 Smokeless Tobacco: Never Tobacco Cessation:Counseling Given: Not Answered Alcohol Use Standard Drinks/Week Comments Not Currently 0 (1 standard drink = 0.6 oz pur e alcohol) Comments No Sex and Gender Information Value Date Recorded Sex Assigned at Not on file Legal Sex Female 9:51 PM CDT Gender Identity Not on file Sexual Orientation Not on file Last Filed Vital Signs Vital Sign Reading Time Taken Comments Blood Pressure 131/63 11/21/2023 3:16 PM CDT Pulse 71 11/21/2023 3:30 PM CDT Temperature 36.2 C (97.2 F) 11/21/2023 12:23 PM CDT Respiratory Rate 18 11/21/2023 12:23 PM CDT Oxygen Saturation 97% 11/21/2023 3:30 PM CDT Inhaled Oxygen Concentration - - Weight 103.4 kg (228 lb) 11/21/2023 12:23 PM CDT Height 170.2 cm (5' 7 ) 11/21/2023 12:23 PM CDT Body Mass Index 35.71 11/21/2023 12:23 PM CDT Plan of Treatment Health Maintenance Due Date Last Done Comments Hepatitis C Virus (HCV) Screening 1995 Pap Smear 02/26/2017 Influenza Immunization (#1) 02/24/202403/26, 05/01/2022, 05/25/2021, Additional history exists SARS-COV-2 Immunization ( season) 2024 05/01/2022, 12/02/2021, 07/05/2021, Additional history exists Respiratory Syncytial Virus (RSV) Immunization (Adult) (1 - 1-dose 75+ series) 02/26/2071 Hepatitis B Immunization Completed 997, 1996, 1996 Meningococcal Immunization (ACWY) Aged Out 04/03/2007 No longer eligible based on patient's age to complete this topic Human Papillomavirus (HPV) Immunization Discontinued 12/31/2007, 06/05/2007, 04/03/2007 DTaP/Tdap/Td Immunization Discontinued 2017, 04/03/2007, 12/20/2001, Additional history exists TdaP Immunization Completed 11/02/2017, 04/03/2007 Pneumococcal Immunization Combined Aged Out No longer eligible based on patient's age to complete this topic Rotavirus Immunization Aged Out No lo nger eligible based on patient's age to complete this topic Insurance [place] on file Care Teams Mangle Roller Relationship Specialty Start Date End Date Provider, Not On File [facility] PCP - General 11/21/23
--- OUTSIDE RECORDS SUMMARY | 2024-08-09 10:35 | XMS_ITS ---
Author Organization [facility] Address [address] [place] [address] Care Team Providers Care Workforce Management Manager Name Role Phone Xochitl Francisco Primary Care Provider [phone] REASON FOR VISIT med issues Medications Medication SIG (Take, Route, Frequency, Duration) Notes Start Date End Date Status QUEtiapine Fumarate 50 MG 1 tablet at be dtime Orally Once a day for 30 days Active Encounters Encounter Location Date Provider Diagnosis [facility] [address] [facility] [place] [address] 07/16/2024 Xochitl Francisco Plan Of Treatment Medication Medication Name Sig Start Date Stop Date Notes QUEtiapine Fumarate 50 MG 1 tablet at be dtime Orally Once a day for 30 days Next Appt Details Provider Name:Xochitl peters, 08/11/2024 03:00:00 PM, [address] [facility] , [place], [address], Progress Notes * Sandra DIAZDOB: 6 (29 yo F)Acc No.[id number]:07/16/2024 Patient: Jp MARINELLIley :1995 A ge:29 Y S ex:Female Address:[facility] [place], [address] * Refills Refill QUEtiapine Fumarate Tablet, 50 MG, Orally, 30, 1 tablet at bedtime, Once a day, 30 days, Refills=0 * true * Date: Generated for Printi ng/Faxing/Jean Pierreitting on: 0 08/09/2024 10:34 AM NURSE PRACTITIONER PHYSICIANS ASSISTANT
--- OUTSIDE RECORDS SUMMARY | 2024-08-09 10:35 | XMS_ITS | Referral Summary ---
Author Organization [facility] Address [address] [place] [address] Care Team Providers Care Family Life Educator Name Role Phone No, Physician Primary Care Provider [phone] Encounters Date Type Department Care Team Description 06/11/2024 7:20 PM GENERAL OFFICE WORKER E-Visit [facility] Medical [facility] Care [address] [place] [phone] Annette Quintero, SUPERVISOR BREW HOUSE Virtual Care Visit 06/11/2024 Patient Self-Triage [facility] HealthCare/ Physicians [address] [place] [phone] Mychart, Generic Provider 06/07/2024 9:40 AM GENERAL OFFICE WORKER E-Visit [facility] Care [address] [place] [phone] Etta Bartlett NP Your Medications 06/07/2024 Patient Self-Triage [facility] Phys[facility] [address] [place] [phone] Mychart, Generic Provider 06/06/2024 8:00 PM GENERAL OFFICE WORKER Telemedicine [facility] Care [address] [place] [phone] Beth Thibodeaux, CURLY Migraine without aura and without status migrainosus, not intractable (Primary Dx) 06/06/2024 Patient Self-Triage [facility] Phys[facility] [address] [place] [phone] Mychart, Generic Provider 06/03/2024 11:05 AM GENERAL OFFICE WORKER - 06/03/2024 12:27 PM GENERAL OFFICE WORKER Emergency [facility] Emergency Department [address] [place] [address] Sprain of anterior talofibular ligament of right ankle, initial encounter (Primary Dx); Calcaneal spur of foot, right Discharge Disposition: Discharge to home or self care 05/31/2024 8:15 PM GENERAL OFFICE WORKER Telemedicine [facility] Medical Group Virtual Care [address] [place] [phone] Beth Thibodeaux NP Fall, initial encounter (Primary Dx); Acute right ankle pain; Swelling of left middle finger 05/31/2024 Patient Self-Triage [facility] Health[facility] Phys[facility] [place] [address] Mychart, Generic Provider from Last 3 Months Allergies Active Allergy Reactions Criticality Noted Date [...] (10/26/2021): Added automatically from request for surgery [id number] Borderline personality disorder 12/04/2019 Resolved Problems Problem Noted Date Diagnosed Date Resolved Date Acute bilateral otitis media 01/25/2019 12/03/2019 Acute pharyngitis 01/25/2019 12/03/2019 Strep throat exposure 01/25/20192019 Social History Tobacco Use Types Packs/Day Years [...] on file Legal Sex Female 9:16 AM GENERAL OFFICE WORKER Gender Identity Not on file Sexual Orientation Not on file Last Filed Vital Signs Vital Sign Reading Time Taken Comments Blood Pressure 121/73 06/03/2024 11:29 AM GENERAL OFFICE WORKER Pulse 80 06/03/2024 11:29 AM GENERAL OFFICE WORKER Temperature 36.5 C (97.7 F) 06/03/2024 9:01 AM GENERAL OFFICE WORKER Respiratory Rate 18 06/03/2024 11:29 AM GENERAL OFFICE WORKER Oxygen Saturation 98% 06/03/2024 11:29 AM GENERAL OFFICE WORKER Inhaled Oxygen Concentration - - Weight 103.4 kg (228 lb) 06/03/2024 9:01 AM GENERAL OFFICE WORKER Height 170.2 cm (5' 7 ) 06/03/2024 9:01 AM GENERAL OFFICE WORKER Body Mass Index 35.71 06/03/2024 9:01 AM GENERAL OFFICE WORKER Plan of Treatment Not on file Procedures Procedure Name Priority Date/Time Associated Diagnosis Comments XR ANKLE RIGHT 3 OR MORE VIEWS ED 06/03/2024 9:31 AM GENERAL OFFICE WORKER from Last 3 Months Results * XR Ankle Right 3+ views (06/03/2024 9:31 AM GENERAL OFFICE WORKER) Anatomical Region Laterality Modality Lower Extremities, Ankle Right Compute d Radiography 06/03/2024 9:55 AM GENERAL OFFICE WORKER Narrative 06/03/2024 9:56 AM GENERAL OFFICE WORKER EXAM DESCRIPTION: XR ANKLE RIGHT 3 OR [...] Ventura Vyas M.D. INDIA: INDIA Report ID: [id number] Reading Location: [id number] Procedure Note Kaushal Vyas MD - 06/03/2024 [...] Ventura Vyas M.D. INDIA: INDIA Report ID: [id number] Reading Location: [place] [address] Elisabeth Mars MD IMG XR PROCEDURES Final R esult from Last 3 Months Insurance [facility] Advance Directives For more information, please contact: [phone] * Full Code (Latest Code Status on File) Date Activated Date Inactivated Comments 12/04/2019 4:26 AM 12/04/2019 7:44 PM Care Teams Family Life Educator Relationship Specialty Start Date End Date No, Physician PCP - General 07/15/19
--- OUTSIDE RECORDS SUMMARY | 2024-08-09 10:35 | XMS_ITS ---
Author Organization [facility] Address [address] [place] [address] Care Team Providers Care Beet Topper Name Role Phone Xochitl Francisco Primary Care Provider REASON FOR VISIT needs in office/rs from 04/21 Encounters Encounter Location Date Provider Diagnosis [address] [place] [address] 05/12/2024 Xochitl Francisco Plan Of Treatment Next Appt Details Provider Name:Xochitl peters, 08/11/2024 03:00:00 PM, [address] [facility] , [place], [address], Progress Notes * Sandra DIAZDOB: 6 (29 yo F)Acc No.[id number]:05/12/2024 UNLOCKED PROGRESS NOTE Patient: Jp MARINELLIley Provider: Yunier Francisco, MSN, RUG DRY ROOM ATTENDANT, STEEL ROLLER-C :1995 A ge:29 Y S ex:Female Date:05/12/2024 Address:[facility] [address] [place]-[phone] Subjective: * Chief Complaints: * 1 . Needs in office/rs from 04/21. * Medical History: Objective: * Vitals: Assessment: Plan: * Treatment: * * Electronic signature of Tracey Francisco [id number] on 08/09/2024 at 10:34 AM LOG PREPARER Sign off status: Pending * Provider: Yunier Francisco, TERESE, RUG DRY ROOM ATTENDANT, STEEL ROLLER-C Date: 1 07/12/2023 Generated for Bakari mittal/Yonatan/Jean Pierreitting on: 0 08/09/2024 10:34 AM LOG PREPARER
--- OUTSIDE RECORDS SUMMARY | 2024-08-09 10:35 | XMS_ITS ---
Author Organization [facility] Address [address] [place] [address] Care Team Providers Care Wincher Name Role Phone Xochitl Francisco Primary Care Provider Allergies Allergen (clinical drug ingredient) Drug/Non Drug Allergy documented on EMR Reaction Allergy Type Onset Date Status Measles & Rubella Vaccines Unknown Drug Allergy Active REASON FOR VISIT 5 month fu Medications Medication SIG (Take, Route, Frequency, Duration) Notes Start Date End Date Status Topiramate 50 MG 1 tablet Orally Once a day for 30 days Active Amphetamine-Dextroamphetam ine 5 MG 1 tablet [...] 1 tablet Orally Once a day for 30 days in the morning 07/15/2024 Active Social History Tobacco Use: Social History Observation Description Date Details (start date - stop date) Never Smoker NA - NA Tobacco Control (Standard) Question Answer Notes Tobacco use: Nonsmoker Vital Signs Oximetry 98 % 07/15/2024 Respiratory Rate 16 /min 07/15/2024 Heart Rate 81 /min 07/15/2024 Blood pressure systolic 126 mm Hg 07/15/19 25 Blood pressure diastolic 82 mm Hg 025 BMI 34.87 kg/m2 07/15/2024 Height 67.5 in 07/15/2024 Weight 226 lbs 07/15/2024 Encounters Encounter Location Date Provider Diagnosis [facility] [address] [place] [address] 07/15/2024 Xochitl Francisco Nutritional counseli ng Z71.3 ; Bipolar affective disorder F31.9 ; Generalized anxiety disorder F41.1 ; Sleep disturbance, unspecified G47.9 and ADHD (attention deficit hyperactivity disorder) F90.9 Assessments Encounter Date Diagnosis (ICD Code) Assessment Notes Treatment Notes Treatment Clinical Notes Section Notes 07/15/2024 Nutritional counseling (ICD-10 - Z71.3) 07/15/2024 Bipolar affective disorder (ICD-10 - F31.9) Discussed r/b/se. To start extra 25 mg topiramate in 1 week. 07/15/2024 Generalized anxiety disorder (ICD-10 - F41.1) Encouraged therapy. 07/15/2024 Sleep disturbance, unspecified (ICD-10 - G47.9) Continue Seroquel. 07/15/2024 ADHD (attention deficit hyperactivity disorder) (ICD-10 - F90.9) Discussed possible increase- client has been on medications for months at this time- will reassess at next appt. 07/15/2024 Other PDMP checked without concerns. Reasons, [...] May also contact the 24-hour crisis hotline ([facility]), refer to the closest emergency room or [...] up. This session was completed telephonically with client/parental/guard dxiie consent: Unable to determine movement status, assess appearance, affect, AIMS, or vital signs. Plan Of Treatment Medication Medication Name Sig Start Date Stop Date Notes Topiramate 50 MG 1 tablet Orally Once a day for 30 days Amphetamine-Dextroamphetamin e 5 MG 1 tablet Orally Once a day in the afternoon. for 30 days 07/15/2024 Amphetamine-Dextroamphet ER 15 MG 1 capsule in the morning Orally Once a day for 30 days 07/15/2024 QUEtiapine Fumarate ER 50 MG 1 tablet in the evening Orally Once a day for 30 days Topiramate 25 MG 1 tablet Orally Once a day for 30 days 07/15/2024 Treatment Notes Assessment Notes Bipolar affective disorder Discussed r/b/se. To start extra 25 mg topiramate in 1 week. Generalized anxiety disorder Encouraged therapy. Sleep disturbance, unspecified Continue Seroquel. ADHD (attention deficit hype ractivity disorder) Discussed possible increase- client has been on medications for months at this time- will reassess at next appt. Other PDMP checked without concerns. Reasons, potential [...] up. This session was completed telephonically with client/parental/guardian consent: Unable to determine movement status, assess appearance, affect, AIMS, or vital signs. Next Appt Details Follow Up: 4 Weeks, Reason: Psych F/U, may be telehealth Provider Name:Xochitl peters, 08/11/2024 03:00:00 PM, [address] [facility], [place], [address], Progress Notes * Sandra DIAZDOB: [birth year] (29 yo F)Acc No.[id number]:07/15/2024 Patient: Sandra MARINELLI Provider: Yunier Francisco, MSN, NETWORKING ENGINEER, CHINESE HER[employer]IST-C :1995 A ge:29 Y S ex:Female Date:07/15/2024 Address:[address] [place], [place] [id number] Subjective: * Chief Complaints: * 5 month fu * HPI: P reventative Health and Wellness follow-up: Action Plans for Clinical Quality Measures: C ervical Cancer Screening: D iscussed need for cervical cancer screening. Patient declined., H IV Screening: D iscussed need for HIV screening. Patient declined.. .. C SSRS Interpretation and Follow Up Plan: CSSRS Interpretation and Follow Up Plan C SSRS Screen documented using SF Y es, R isk Disposition from SF L ow - No Follow Up Plan Required, F ollow Up Plan N o Follow Up Plan required at this time.. D epression Screening: PHQ-9 L ittle interest or pleasure in doing things S everal days, F eeling down, depressed, or hopeless S everal days, T rouble falling or staying asleep, or sleeping too much N early every day, F eeling tired or having little energy Nearly every day, P oor appetite or overeating M ore than half the days, F eeling bad about yourself or that you are a failure, or have let yourself or your family down N ot at all, T rouble concentrating on things, such as reading the newspaper or watching television N early every day, M oving or speaking so slowly that other people could have noticed; or the opposite, being so fidgety or restless that you have been moving around a lot more than usual N early every day, T houghts that you would be better off or of hurting yourself in some way N ot at all, T otal Score 1 6, I nterpretation M oderately Severe Depression. I ntervention D epression Screening Findings P ositive, F ollow-Up for Depression N o Referral necessary, patient involved in behavioral health treatment . denies crisis intervention..? P sychiatric Assessment - Current Symptoms: How is ct doing today? Client is a 29 yo F in office today stating I stopped my medications because I was doing well, and I quit my job, and went a little manicky, but I am doing better now. Reports without the adderall my thoughts are everywhere and it seems loud. Depression: -11/01 Anxiety: 12/02 Anger/irritability: Denies that has been pretty good. Sleep: I can go with some sleep on some nights, then others it is like maybe 5 hours. Reports taking OTC medications for sleep which are not helping. Appetite: I have noticed myself overeating. Drugs/ETOH: THC use, that is maybe only once or twice a week now too. States she has cut back on caffeine. Reports water intake is good. Hallucinations/paranoia: Denies Social: Talks with family and friends. Work: I start on , still doing [employer] work, making more money now in [employer]. Denies SI/HI. Medical changes/concerns: Denies. * ROS: P sych ROS: Constitutional D enies. E yes D enies. E ars/Nose/Mouth/Throat D enies. R espiratory R eports, A sthma. A llergic/Immunologic D enies. C ardiovascular D enies. G I D enies. G U D enies. M usculoskeletal D enies. N eurological D enies. I ntegumentary Denies. E ndocrine D enies. H ematological/Lymphatic D enies. P sych D enies SI/HI/AH/VH. * Medical History: * Surgical History: N o Surgical History documented. * Hospitalization/Major Diagno stic Procedure: N o Hospitalization History. * Family History: F ather: alive, LAVON. M other: alive, bipolar depression. 1 brother(s) , 1 sister(s) - healthy. 2 daughter(s) - healthy. . Brother heart disorder Sister bipolar anxiety depression. * Social History: P rimary Social History: L iving Arrangement L iving Arrangement: D ependent Living, L iving with: boyfriend, I s this a supportive environment? Y es. A lcohol Use A lcohol Use Frequency: Never .. 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 T obacco Use - do not use T obacco Use: Azeb mata Reviewed with Patient. T obacco Use: T obacco Control (Standard) T obacco use: N onsmoker. * Medications: D iscontinuedTopiramate 50 MG Tablet TAKE 1 TABLET BY MOUTH DAILY Amphetamine-Dextroamphet ER 15 MG Capsule Extended Release 24 Hour 1 capsule in the morning Orally Once a day Amphetamine-Dextroamphetamine 5 MG Tablet 1 tablet Orally Once a day in the afternoon. Amphetamine-Dextroamphet ER 15 MG Capsule Extended Release 24 Hour 1 capsule in the morning Orally Once a day. Amphetamine-Dextroamphetamine 5 MG Tablet 1 tablet Orally Once a day in the afternoon QUEtiapine Fumarate 50 MG Tablet 1 tablet at bedtime Orally Once a day Medication List reviewed and reconciled with the patientDiscontinued Topiramate 50 MG Tablet TAKE 1 TABLET BY MOUTH DAILY Discontinued Amphetamine-Dextroamphet ER 15 MG Capsule Extended Release 24 Hour 1 capsule in the morning Orally Once a day Discontinued Amphetamine-Dextroamphetamine 5 MG Tablet 1 tablet Orally Once a day in the afternoon. Discontinued Amphetamine-Dextroamphet ER 15 MG Capsule Extended Release 24 Hour 1 capsule in the morning Orally Once a day. Discontinued Amphetamine-Dextroamphetamine 5 MG Tablet 1 tablet Orally Once a day in the afternoon Discontinued QUEtiapine Fumarate 50 MG Tablet 1 tablet at bedtime Orally Once a day Medication List reviewed and reconciled with the patient * Allergies: M easles & Rubella Garrisonno[Allergies Verified] Objective: * Vitals: I nitials: hp, Wt:226, Ht:67.5, BMI:34.87, BP:126/82, HR:81, Oxygen sat %:98, RR:16, LMP:07/19, Pain scale:0. * Examination: M ental Status Exam: SENSORIUM AND COGNITION Alert, Oriented to Person, Oriented to Place, Oriented to Time, Oriented to Situation. ATTENTION AND CONCENTRATION No deficits. APPEARANCE A ppropriate. ATTITUDE AND BEHAVIOR Cooperative, Receptive. MEMORY Immediate, Recent, Remote. EYE CONTACT G ood. AFFECT B road/Full, Congruent with reported mood. MOOD Euthymic. SPEECH QUANTITY Appropriate. SPEECH QUALITY Appropriate volume. THOUGHT PROCESS Coherent and goal directed. THOUGHT CONTENT Appropriate - WNL. MOTOR ACTIVITY N ormal gait, Goal directed, No abnormal movements or tics noted. SUICIDAL IDEATION Denies suicidal ideation. HOMICIDAL IDEATION Denies homicidal ideation. HALLUCINATIONS Denies hallucinations. INSIGHT F air. JUDGMENT F air. FUND OF KNOWLEDGE F air. ABILITY TO PARTICIPATE IN TREATMENT M oderate. WILLINGNESS TO PARTICIPATE IN TREATMENT M oderate. ? Assessment: * Assessment: 1. N utritional counseling - Z71.3 2 . B ipolar affective disorder - F31.9 (Primary) 3 . G eneralized anxiety disorder - F41.1 4 . S leep disturbance, unspecified - G47.9 5 . A DHD (attention deficit hyperactivity disorder) - F90.9 Plan: * Treatment: 2. G eneralized anxiety disorder Notes: Encouraged therapy. 3. S leep disturbance, unspecified Notes: Continue Seroquel. 4. A DHD (attention deficit hyperactivity disorder) Refill Amphetamine-Dextroamphet ER Capsule Extended Release 24 Hour, 15 MG, 1 capsule in the morning, Orally, Once a day, 30 days, 30 Capsule, Refills 0; R efill Amphetamine-Dextroamphetamine Tablet, 5 MG, 1 tablet, Orally, Once a day in the afternoon., 30 days, 30, Refills 0. L AB: 12 Panel Urine Drug Screen (Ordered for 07/15/2024) Notes: Discussed possible increase- client has been on medications for months at this time- will reassess at next appt. 5. O thers Notes: PDMP checked without concerns. Reasons, potential benefits, [...] up. This session was completed telephonically with client/parental/guardian consent: Unable to determine movement status, assess appearance, affect, AIMS, or vital signs. * Recommended Wellness and Pre vention Guidelines: * S tatus A lert L ast Done N ext Due A ction Taken N ONCOMPLIANT A lcohol use screening - 0 07/15/2024 - N ONCOMPLIANT C ervical cancer screening - 0 07/15/2024 - N ONCOMPLIANT D epression followup 0 02/18/2024 0 07/15/2024 - N ONCOMPLIANT H IV screening - 0 07/15/2024 - * Procedure Codes: 3 008F BODY MASS INDEX [id number] MEDICAL NUTRITION, INDIV, [id number] TOBACCO NON-USER * Preventive Medicine: Counseling: C are goal follow-up plan: B CT management provided Y Tere clemente Normal BMI Follow-up L ifestyle education regarding diet. * Follow Up: 4 Weeks (Reason: Psych F/U, may be telehealth) * * ENT SCHEDULER Sign off status: Completed true * Provider: Yunier Francisco, MSN, NETWORKING ENGINEER, CHINESE HER[employer]IST-C Date: 0 07/15/2024 Generated for Bakari mittal/Yonatan/Marvin on: 0 08/09/2024 10:35 AM PATIENT SCHEDULER History and Physical Notes * HPI (History of Present Illness) Category Sub-Category Detail Notes Category Not es Depression Screening PHQ-9 Little inte rest or pleasure in doing things: Several days Feeling down, depressed, or hopeless: Se veral days Trouble falling or staying asleep, or sl eeping too much: Nearly every day Feeling tired or having little energy: N early every day Poor appetite or overeating: More than h prison the days Feeling bad about yourself o r that you are a failure, or have let yourself or your family down: Not at all Trouble concentrating on thi ngs, such as reading the newspaper or watching television: Nearly every day Moving or speaking so slowly that other people could have noticed; or the opposite, being so fidgety or restless that you have been moving around a lot more than usual: Nearly every day Thoughts that you would be b roz off or of hurting yourself in some way: Not at all Total Score: 16 Interpretation: Moderately Severe Depres anahi Intervention Depression Screening Findings: P ositive Follow-Up for Depression: No Referral necessary, patient involved in behavioral health treatment . denies crisis intervention. Psychiatric Assessment - Current Symptoms How is ct doing today? Client is a 29 yo F in office today stating I stopped my medications because I was doing well, and I quit my job, and went a little manicky, but I am doing better now. Reports without the adderall my thoughts are everywhere and it seems loud. Depression: 4-11/01 Anxiety: 12/02 Anger/irritability: Denies that has been pretty good. Sleep: I can go with some sleep on some nights, then others it is like maybe 5 hours. Reports taking OTC medications for sleep which are not helping. Appetite: I have noticed myself overeating. Drugs/ETOH: THC use, that is maybe only once or twice a week now too. States she has cut back on caffeine. Reports water intake is good. Hallucinations/paranoia: Denies Social: Talks with family and friends. Work: I start on , still doing [employer] work, making more money now in [employer]. Denies SI/HI. Medical changes/concerns: Denies Preventative Health and Wellness follow-up Action Plans for Clinical Quality Measures: Cervical Cancer Screening:: Discussed need for cervical cancer screening. Patient declined. . . HIV Screening:: Discussed need for HIV s creening. Patient declined. CSSRS Interpretation and Follow Up Plan CSSRS Interpretation and Follow Up Plan CSSRS Screen documented using SF: Yes Risk Disposition from SF: Low - No Follo w Up Plan Required Follow Up Plan: No Follow Up Plan requir ed at this time. Examination Category Sub-Category Detail Notes Category Not es Mental Status Exam SENSORIUM AND COGNITION Alert , Oriented to Person, Oriented to Place, Oriented to Time, Oriented to Situation ATTENTION AND CONCENTRATION No deficits APPEARANCE Appropriate ATTITUDE AND BEHAVIOR Cooperative, Courier Driver tive MEMORY Immediate, Recent, R emote EYE CONTACT Good AFFECT Broad/Full, Congruen t with reported mood MOOD Euthymic SPEECH QUANTITY Appropriate SPEECH QUALITY Appropriate volume THOUGHT PROCESS Coherent and goal di rected THOUGHT CONTENT Appropriate - WNL MOTOR ACTIVITY Normal gait, Goal di rected, No abnormal movements or tics noted SUICIDAL IDEATION Denies suicidal idea tion HOMICIDAL IDEATION Denies homicidal balbina ation HALLUCINATIONS Denies hallucination s INSIGHT Fair JUDGMENT Fair FUND OF KNOWLEDGE Fair ABILITY TO PARTICIPATE IN TREATMENT Mode rate WILLINGNESS TO PARTICIPATE IN TREATMENT Moderate
--- OUTSIDE RECORDS SUMMARY | 2024-08-09 10:35 | XMS_ITS | Data Portability ---
Author Organization [facility] [place] Address [address] [place] [address] Assessment Encounter Date Assessment Date Assessment LastModified by Organization Details LastModified Time 10/06/2020 10/06/2020 PCOS labs, A1C, TSH US to be scheduled discussed ocp to regulate bleeding, pt desires Discussed the usage, side effects, risks, and benefits of OCP use. Questions answered. Prescription given for microgestin. She will start OCP with next menses WWE and med check 3 mos [email or web address] Not available 10/06/2020 15:44:25 Plan of Treatment Reminders Order Date Submit Date Provider Last Modified By Organization Details Last Modified Time Details Appointments None recorded. Lab testosteron e, free + total, serum 2020 021 [facility] (Lab), [address] [place], [address], 1 10:47:42 dhea-sulfat e, serum 2020 021 [facility] (Lab), [address] [place], [address], 1 17:24:19 estradiol, serum 2020 021 [facility] (Lab), [address] [place], [address], 1 17:24:17 FSH (follicle-s timulating hormone), serum 2020 021 [facility] (Lab), [address], [place], [address], 1 17:24:18 HbA1c (hemoglobin A1c), blood 2020 [facility] (Lab), [address], [place], [address], 1 17:24:17 prolactin, serum 2020 [facility] (Lab), [address], [place], [address], 1 17:24:18 TSH, serum or plasma 2020 [facility] (Lab), [address], [place], [address], 1 17:24:18 testosteron e free/testos terone total, ratio, serum 2020 [facility] (Lab), [address], [place], [address], 1 17:24:19 Referral None recorded. Procedures None recorded. Surgeries None recorded. Imaging None recorded. Medication Orders Microgestin FE 07/14 (28) 1 mg-20 mcg (21)/75 mg (7) tablet 2020 [id number], [address], [place], [place], [id number], 15:01:27 Patient TargetsNo targets recorded. Patient InstructionsNo instructions recorded. Reason for Referral None Reported. Results Created Date Observation Date Name Description Value Unit Range Abnormal Flag Note LastModifiedBy Organization Detail LastModifiedTime 10/07/19 21 10/06/2020 HbA1c (hemo globi n A1c), blood hemoglobin A1C 5.2 % 0-5.6 The Ameri can Diabe oj Assoc iatio n recom mends that a prima ry goal of xiomara mcdaniels d be a HBA1C of < 7% and that physi cesar salmon reeva luate the treat ment regim en in patie nts with HBA1C value s consi stent ly > 8%. <5.7% Nohemi l 5.7 - 6.4% Incre ased risk for diabe oj >=6.5 % Diagn ostic of diabe oj <7.0% Goal of thera py >8.0% Actio n sugge sted Not Available [facility] (Lab) [address] [place], [address], 10/12/2020 17:24:17 10/07/19 21 10/06/2020 estra diol, serum estradiol 53.9 pg/mL This assay was perfo rmed using [employer] ratio n reage nts and test kits. Value s obtai terese with other assay metho ds or kits canno t be used inter [facility] . Femal e Estra diol Range s: Folli cular phase 12.4- 233 pg/mL Ovula tion phase 41.0- 398 pg/mL Lutea l phase 22.3- 341 pg/mL Postm enopa usal< 5-138 pg/mL Healt hy Pregn ant Women 1st Trime ster1 54-32 43 pg/mL 2nd Trime ster1 561-2 1280 pg/mL 3rd Trime ster8 525-> 53348 pg/mL Not Available [facility] (Lab) [address], [place], [address], 10/12/2020 17:24:17 10/07/19 21 10/06/2020 FSH (foll icle- stimu latin g hormo ne), serum FSH 2.0 mIU/m L This assay was perfo rmed using [employer] ratio n reage nts and test kits. Value s obtai terese with other assay metho ds or kits canno t be used inter [facility] . Femal es Folli cular : 3.5-1 2.5 mIU/m L Ovula tion: 4.7-2 1.5 mIU/m L Lutea l: 1.7-7 .7 mIU/m L Postm enopa use: 25.8- 134.8 mIU/m L Not Available [facility] (Lab) [address] [place], [address], 10/12/2020 17:24:18 10/07/19 21 10/06/2020 TSH, serum or plasm a TSH 0.83 uIU/m L 0.30-5 .00 Not Available [facility] (Lab) [address] [place], [address], 10/12/2020 17:24:18 10/07/19 21 10/06/2020 prola ctin, serum prolactin, total 3.45 NG/mL 4.79-2 3.30 low This assay was perfo rmed using [employer]stic s Cor[employer] ratio n reage nts and test kits. Value s obtai terese with other assay metho ds or kits canno t be used inter cai eably . Not Available [facility] (Lab) [address], [place], [address], 10/12/2020 17:24:18 10/07/19 21 10/06/2020 dhea- sulfa te, serum DHEA-sulfate 305 ug/dL (based on docume nted legal sex) 148-40 7 Not Available [facility] (Lab) [address] [place], [address], 10/12/2020 17:24:19 10/07/19 21 10/06/2020 testo stero ne free/ testo stero ne total , ratio , serum testosterone , total 25 NG/dL 2-45 For addit ional infor heiyd saleem e refer to http: //kerri peters.que stdia gnost [employer].c om/fa q/Tot al Testo stero neLCM SMS (This link is being provi ded for infor lars nal/e ducat ional purpo ses only. ) This test was devel oped and its mary tical perfo rmanc e jaron cteri stics have been deter mined by [facility] [employer] [facility] [employer] ostic s. It has not been clear ed or appro jseus by the FDA. This assay has been valid ated pursu ant to the CLIA regul ation s and is used for clini beatriz purpo ses. Not Available [facility] (Lab) [address], [place], [address], 10/12/2020 17:24:19 10/07/19 21 10/06/2020 testo stero ne free/ testo stero ne total , ratio , serum testosterone , free 1.3 pg/mL 0.1-6. 4 This test was devel oped and its mary tical perfo rmanc e jaron cteri stics have been deter mined by [employer] [facility] [facility]. It has not been clear ed or appro jesus by the FDA. This assay has been valid ated pursu ant to the CLIA regul ation s and is used for clini beatriz purpo ses. Perfo rming Organ izati on Infor matio n: Site ID: [id number] Name: [employer] [facility] Addre ss: [id number] [place] [address] Dire tor: Leonardo kearney M.D. Not Available [facility] (Lab) [address], [place], [address], 10/12/2020 17:24:19 Result Notes None recorded. Problems Name Problem SNOMED Code Status Onset Date Resolution Date Notes Provider Name and Address Organization Details Recorded Time Body mass index 30+ - obesity [id number] Active 2018 Body mass index (BMI) 34.0-34. 9, adult;Re corded Elsewher e: No Locat ion: [facility] S ource: EHR Cream Beater brandon: N Practi ce ID: 0001 Daniel lable Time: 02:00:00 PM Not Available [employer] 0 18:21:06 Pelvic and perineal pain [id number] Completed 201810/06/2020 Pelvic pain;Rec orded Elsewher e: No Locat ion: [facility] S ource: EHR Cream Beater brandon: N Practi ce ID: 0001 Daniel lable Time: 11:15:00 AM Rosi Henriquez MD [address], [place], [address], [facility] 14:49:12 Surveill ance of contrace ption Completed 201710/06/2020 Encounte r for surveill ance of contrace ptives, unspecif ied;Pio rded Elsewher e: No Locat ion: [facility] S ource: EHR Cream Beater brandon: N Martinati ce ID: 0001 Daniel lable Time: 03:15:00 PM Rosi Henriquez MD [address], [place], [address], [facility] 14:49:48 Syphilis test finding [id number] Completed 201610/06/2020 Encntr screen for infectio ns w sexl mode of transmis s;Record ed Elsewher e: No [facility] S ource: EHR Cream Beater brandon: N Julio ce ID: 0001 Daniel lable Time: 12:00:00 PM Rosi Henriquez MD [address], [place], [address], [facility] 14:49:50 Complica tion of pregnanc y, childbir th and/or puerperi [id number] Completed 201610/06/2020 Oth diseases and conditio ns compl preg/chl dbrth;Re corded Elsewher e: No Locat ion: [facility] S ource: EHR Cream Beater brandon: N Julio ce ID: 0001 Daniel lable Time: 09:15:00 AM Rosi Henriquez MD [address], [place], [address], [facility] 14:49:56 Normal pregnanc y in multigra erwin [id number] Completed 201710/06/2020 Encounte r for suprvsn of normal pregnanc y, third trimeste r;Record ed Elsewher e: No Locat ion: [facility] S ource: EHR Cream Beater brandon: N Martinati ce ID: 0001 Daniel lable Time: 02:30:00 PM Rosi Henriquez MD [address], [place], [address], [facility] 14:49:10 Pregnanc y test negative [id number] Completed 201310/06/2020 Pregnanc y examinat ion or test, negative result;R ecorded Elsewher e: No Locat ion: [facility] S ource: EHR Cream Beater brandon: N Martinati ce ID: 0001 Daniel lable Time: 03:30:00 PM Rosi Henriquez MD [address], [place], [address], [facility] 14:49:20 Educatio n Completed 201810/06/2020 Encounte r for family planning advice NOS;Pio rded Elsewher e: No Locat ion: [facility] S ource: EHR Cream Beater brandon: N Julio ce ID: 0001 Daniel lable Time: 11:15:00 AM Rosi Henriquez MD [address], [place], [address], [facility] 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 14:49:41 Contrace ption care manageme nt Completed 01/04/ 2019 10/06/2020 Encounte r for contrace ptive manageme nt, unspecif ied;Pio rded Elsewher e: No Locat ion: [facility] S ource: EHR Cream Beater brandon: N Martinati ce ID: 0001 Daniel lable Time: 08:45:00 AM Rois Henriquez MD [address], [place], [address], [facility] 1 14:48:13 Primigra erwin [id number] Completed 201210/06/2020 Supervis ion of normal first pregnanc y;Record ed Elsewher e: No Locat ion: [facility] S ource: EHR Cream Beater brandon: N Martinati ce ID: 0001 Daniel lable Time: 01:30:00 PM Rosi Henriquez MD [address], [place], [address], [facility] 1 14:49:22 Amenorrh ea [id number] Completed 201610/06/2020 Amenorrh ea;Recor ded Elsewher e: No Locat ion: [facility] S ource: EHR Cream Beater brandon: N Julio ce ID: 0001 Daniel lable Time: 11:30:00 AM Rosi Henriquez MD [address], [place], [address], [facility] 1 14:47:52 Cyst of ovary Completed 201810/06/2020 Ovarian cyst;Rec orded Elsewher e: No Locat ion: [facility] S ource: EHR Cream Beater brandon: Padmaja Kim ce ID: 0001 Daniel lable Time: 08:45:00 AM Rosi Henriquez MD [address], [place], [address], [facility] 1 14:48:17 Herpetic vulvovag initis [id number] Active 2018 Herpesvi ral vulvovag initis;R ecorded Elsewher e: No Locat ion: [facility] S ource: EHR Cream Beater brandon: N Practi ce ID: 0001 Daniel lable Time: 10:15:00 AM Not Available [facility] 0 18:21:07 Insertio n of subcutan eous contrace ptive Completed 201310/06/2020 Insertio n of implanta ble subderma l contrace ptive;Re corded Elsewher e: No Locat ion: [facility] S ource: EHR Cream Beater brandon: N Practi ce ID: 0001 Daniel lable Time: 10:17:00 AM Rosi Henriquez MD [address], [place], [address], [facility] 14:49:01 Infectio n screenin g Completed 201710/06/2020 Encounte r for screenin g for oth infec/pa rastc diseases ;Recorde d Elsewher e: No [facility] S ource: EHR Cream Beater brandon: N Martinati ce ID: 0001 Daniel lable Time: 03:00:00 PM Rosi Henriquez MD [address], [place], [address], [facility] 1 14:48:55 Postpart um care Completed 201310/06/2020 Post Followup ;Recorde d Elsewher e: No [facility] Cream Beater brandon: N Martinati ce ID: 0001 Daniel lable Time: 03:30:00 PM Rosi Henriquez MD [address], [place], [address], [facility] 1 14:49:16 Ultrason ography Completed 201210/06/2020 Antenata l screenin g for malforma tion using ultrason ics;Pio rded Elsewher e: No [facility] S ource: EHR Cream Beater brandon: N Practi ce ID: 0001 Daniel lable Time: 01:00:00 PM Rosi Henriquez MD [address], [place], [address], [facility] 14:49:59 Antenata l screenin g Completed 201210/06/2020 Antenata l screenin g for malforma tion using ultrason ics;Pio rded Elsewher e: No Locat ion: [facility] S ource: EHR Cream Beater brandon: N Practi ce ID: 0001 Daniel lable Time: 01:00:00 PM Rosi Henriquez MD [address], [place], [address], [facility] 14:47:54 Congenit al malforma tion [id number] Completed 201210/06/2020 Antenata l screenin g for malforma tion using ultrason ics;Pio rded Elsewher e: No Locat ion: [facility] S ource: [facility] Cream Beater brandon: N Martinati ce ID: 0001 Daniel lable Time: 01:00:00 PM Rosi Henriquez MD [address], [place], [address], [facility] 14:48:11 Antenata l screenin g for malforma tion Completed 201710/06/2020 Encounte r for antenata l screenin g for malforma tions;Re corded Elsewher e: No Locat ion: [facility] S ource: EHR Cream Beater brandon: N Practi ce ID: 0001 Daniel lable Time: 08:15:00 AM Rosi Henriquez MD [address], [place], [address], [facility] 14:48:01 Screenin g for malignan t neoplasm of cervix Completed 201710/06/2020 Encounte r for screenin g for malignan t neoplasm of cervix;R ecorded Elsewher e: No Locat ion: [facility] S ource: EHR Cream Beater brandon: N Practi ce ID: 0001 Daniel lable Time: 02:30:00 PM Rosi Henriquez MD [address], [place], [address], [facility] 14:49:28 Gestatio n less than 9 weeks [id number] Completed 201610/06/2020 Less than 8 weeks gestatio n of pregnanc y;Record ed Elsewher e: No Locat ion: [facility] S ource: EHR Cream Beater brandon: N Practi ce ID: 0001 Daniel lable Time: 12:00:00 PM Rosi Henriquez MD [address], [place], [address], [facility] 14:48:35 Threaten ed miscarri age [id number] Completed 201210/06/2020 Threaten ed , antepart um;Recor ded Elsewher e: No Locat ion: [facility] S ource: EHR Cream Beater brandon: N Practi ce ID: 0001 Daniel lable Time: 02:30:00 PM Rosi Henriquez MD [address], [place], [address], [facility] 14:49:52 Speciali zed medical examinat ion Completed 201210/06/2020 Routine gynecolo gical examinat ion;Prac christina ID: 0001 Rosi Henriquez MD [address], [place], [address], [facility] 14:49:43 Vaginal abnormal ity complica ting antenata l care - baby not yet delivere d [id number] Completed 201310/06/2020 Congenit al or acquired abnormal ity of vagina, antepart um conditio n or complica tion;Pra ctice ID: 0001 Rosi Henriquez MD [address], [place], [address], [facility] 14:50:10 Labor and delivery complica kit by heart rate anomaly [id number] Completed 201310/06/2020 HEART RATE NON REASSURI NG;Pract ice ID: 0001 Rosi Henriquez MD [address], [place], [address], [facility] 14:49:04 Delivery normal [id number] Completed 201310/06/2020 Normal delivery ;Practic e ID: 0001 Rosi Henriquez MD [address], [place], [address], [facility] 14:48:19 Single live [id number] Completed 201310/06/2020 Mother with single liveborn ;Practic e ID: 0001 Rosi Henriquez MD [address], [place], [address], [facility] 14:49:37 Procedur e Completed 201610/06/2020 Enctr srvlnc implanta ble subderma l contrace ptive;Pr actice ID: 0001 Rosi Henriquez MD [address], [place], [address], [facility] 14:49:24 Secondar y amenorrh ea [id number] Completed 201610/06/2020 Secondar y amenorrh ea;Pract ice ID: 0001 Rosi Henriquez MD [address], [place], [address], [facility] 14:49:30 Pregnanc y detectio n examinat ion Completed 201610/06/2020 Encounte r for pregnanc y test, result positive ;Practic e ID: 0001 Rosi Henriquez MD [address], [place], [address], [facility] 14:49:18 Hemorrha gic complica tion of pregnanc y [id number] Completed 201610/06/2020 Other hemorrha ge in early pregnanc y;Practi ce ID: 0001 Rosi Henriquez MD [address], [place], [address], [facility] 14:48:52 Vaginiti s in pregnanc y [id number] Completed 201610/06/2020 Infectio n oth prt genitl trct in pregnanc y, second trimeste r;Practi ce ID: 0001 Rosi Henriquez MD [address], [place], [address], [facility] 14:50:13 Gestatio n period, 14 weeks [id number] Completed 201610/06/2020 14 weeks gestatio n of pregnanc y;Practi ce ID: 0001 Rosi Henriquez MD [address], [place], [address], [facility] 14:48:33 Gestatio n period, 15 weeks [id number] Completed 201610/06/2020 15 weeks gestatio n of pregnanc y;Practi ce ID: 0001 Rosi Henriquez MD [address], [place], [address], [facility] 14:48:37 heart finding Completed 201710/06/2020 Abnlt in heart rate and rhythm comp labor and delivery ;Practic e ID: 0001 Rosi Henriquez MD [address], [place], [address], [facility] 14:48:31 Gestatio n period, 30 weeks [id number] Completed 201710/06/2020 30 weeks gestatio n of pregnanc y;Practi ce ID: 0001 Rosi Henriquez MD [address], [place], [address], [facility] 14:48:[address] Concept Completed 201710/06/2020 Decrease d movement s, third trimeste r, unsp;Pra ctice ID: 0001 Rosi Henriquez MD [address], [place], [address], [facility] 14:49:36 Gestatio n period, 31 weeks [id number] Completed 201710/06/2020 31 weeks gestatio n of pregnanc y;Practi ce ID: 0001 Rosi Henriquez MD [address], [place], [address], [facility] 14:48:41 Gestatio n period, 32 weeks [id number] Completed 201710/06/2020 32 weeks gestatio n of pregnanc y;Practi ce ID: 0001 Rosi Henriquez MD [address], [place], [address], [facility] 14:48:43 Dizzines s and giddines s [id number] Completed 201710/06/2020 Dizzines s and giddines s;Practi ce ID: 0001 Rosi Henriquez MD [address], [place], [address], [facility] 14:48:24 Headache [id number] Completed 201710/06/2020 Headache ;Practic e ID: 0001 Rosi Henriquez MD [address], [place], [address], [facility] 14:48:49 Gestatio n period, 35 weeks [id number] Completed 201710/06/2020 35 weeks gestatio n of pregnanc y;Practi ce ID: 0001 Rosi Henriquez MD [address], [place], [address], [facility] 14:48:45 Umbilicu s finding Completed 201710/06/2020 Labor and delivery complica kit by oth cord comp, unsp;Pra ctice ID: 0001 Rosi Henriquez MD [address], [place], [address], [facility] 14:50:01 Gestatio n period, 38 weeks [id number] Completed 201710/06/2020 38 weeks gestatio n of pregnanc y;Practi ce ID: 0001 Rosi Henriquez MD [address], [place], [address], [facility] 14:48:47 Lochia finding Completed 201710/06/2020 Encounte r for routine postpart um follow-u p;Practi ce ID: 0001 Rosi Henriquez MD [address], [place], [address], [facility] 14:49:05 Insertio n of intraute rine contrace ptive device Completed 201710/06/2020 Encounte r for insertio n of intraute rine contrace ptive device;P ractice ID: 0001 Rosi Henriquez MD [address], [place], [address], [facility] 14:48:59 Abnormal uterine bleeding [id number] 9100 Active 2017 Other specifie d abnormal uterine and vaginal bleeding ;Practic e ID: 0001 Not Available [facility] 0 18:21:17 Contrace ptive sheath status [id number] Completed 201710/06/2020 Encounte r for initial prescrip tion of other contrace ptives;P ractice ID: 0001 Rosi Henriquez MD [address], [place], [address], [facility] 14:48:15 Lesion of ovary Completed 201810/06/2020 Other ovarian cyst, left side;Pra ctice ID: 0001 Rosi Henriquez MD [address], [place], [address], [facility] 14:48:[address] Concept Completed 201710/06/2020 Encntr for general adult medical exam w/o abnormal findings ;Recorde d Elsewher e: No [facility] Cream Beater brandon: N Practi ce ID: 0001 Daniel lable Time: 02:30:00 PM Rosi Henriquez MD [address], [place], [address], [facility] 14:49:39 Acute vaginiti s [id number] Completed 201810/06/2020 Vaginiti s;Record ed Elsewher e: No Locat ion: [facility] S ource: EHR Cream Beater brandon: N Practi ce ID: 0001 Daniel lable Time: 08:30:00 AM Rosi Henriquez MD [address], [place], [address], [facility] 14:47:49 Procedur e on genitour inary system Completed 201810/06/2020 Encounte r for surgical aftercar e followin g surgery on the genitour inary system;R ecorded Elsewher e: No [facility] S ource: EHR Cream Beater brandon: N Practi ce ID: 0001 Daniel lable Time: 11:30:00 AM MD [address], [place], [address], [facility] 14:49:26 Postoper ative care Completed 201810/06/2020 Encounte r for surgical aftercar e followin g surgery on the genitour inary system;R ecorded Elsewher e: No Locat ion: [facility] S ource: EHR Cream Beater brandon: N Practi ce ID: [id number] Daniel lable Time: 11:30:00 AM Rosi Henriquez MD [address], [place], [address], [facility] 14:49:14 Backache [id number] Completed 201710/06/2020 Back pain;Rec orded Elsewher e: No Locat ion: [facility] S ource: EHR Cream Beater brandon: N Martinati ce ID: [id number] Daniel lable Time: 09:30:00 AM Rosi Henriquez MD [address], [place], [address], [facility] 14:48:03 Sexually transmit kit infectio us disease [id number] Completed 201810/06/2020 STD;Pio rded Elsewher e: No Locat ion: [facility] S ource: EHR Cream Beater brandon: N Practi ce ID: 0001 Daniel lable Time: 08:30:00 AM MD [address], [place], [address], [facility] 14:49:32 Ana ry postpart um mood disturba nce [id number] Completed 201710/06/2020 Postpart um mood disturba nce;Pio rded Elsewher e: No Locat ion: [facility] S ource: EHR Cream Beater brandon: N Practi ce ID: 0001 Daniel lable Time: 02:45:00 PM MD [address], [place], [address], [facility] 14:49:54 Clinical finding Completed 201710/06/2020 Presence of (intraut erine) contrace ptive device;R ecorded Elsewher e: No Locat ion: [facility] S ource: EHR Cream Beater brandon: N Practi ce ID: 0001 Daniel lable Time: 03:00:00 PM Rosi Henriquez MD [address], [place], [address], [facility] 14:48:08 Urinary tract infectio us disease [id number] Completed 201810/06/2020 UTI;Pio rded Elsewher e: No Locat ion: [facility] S ource: EHR Cream Beater brandon: N Practi ce ID: 0001 Daniel lable Time: 08:30:00 AM Rosi Henriquez MD [address], [place], [address], [facility] 14:50:03 Uterine size for dates discrepa ncy [id number] Completed 201210/06/2020 UTERINE SIZE VON-ANTE PAR;Pio rded Elsewher e: No [facility] Cream Beater brandon: N Practi ce ID: 0001 Daniel lable Time: 05:00:00 PM Rosi Henriquez MD [address], [place], [address], [facility] 14:50:06 Steriliz ation procedur e Completed 201810/06/2020 Encounte r for steriliz ation;Pr actice ID: [id number] Rosi Henriquez MD [address], [place], [address], [facility] 14:49:45 Problem Notes None recorded. Procedures Surgical History Date Name Laterality Status Provider Name and Address Organization Details Recorded Time 01/01/20 19 Date of Last Pap Smear completed [facility] 10/06/2020 14:38:40 08/06/19 19 ligation of bilateral fallopian tubes completed [facility] 10/06/2020 14:34:56 06/25/19 03 Tonsillectomy completed [facility] 02/24/2020 13:36:08 Imaging Results None recorded. Procedure Notes None recorded. Medical Equipment None Reported. Allergies Allergen ID Allergen Name Allergen Category Reaction Reaction Severity Criticality Documentation Date Start Date Code Code System Note Provider Name and Address Organization Details Recorded Time 1898 measles, mumps, rubella,a nd varicella live vaccine medicatio n Not available Not available Not available 02/24/2020 UNK Tr[facility] 0 13:34:13 Medications Name Sig Start Date Stop Date Status Note LastModified by Organization Details LastModified Time quetiapin e 25 mg tablet TK 1 T PO QD IN THE LARS 10/06 completed Not Available Not Available Not Available trazodone 50 mg tablet TAKE 1 TABLET BY MOUTH EVERY DAY AT BEDTIME FOR 30 DAYS 10/06 completed Not Available Not Available Not Available Lidocaine Viscous 2 % mucosal solution TK 10 ML PO Q 3 H 10/06 completed Not Available Not Available Not Available hydrocodo ne 5 mg-acetam inophen 325 mg tablet TK 1 TO 2 TS PO Q 4 H PRN P. MDD 8 TS. 10/06 completed Not Available Not Available Not Available prednison e 20 mg tablet 10/06 completed Not Available Not Available Not Available clonazepa m 0.5 mg tablet TK 1 TO 2 TS PO D PRA 10/06 completed Not Available Not Available Not Available penicilli n V potassium 500 mg tablet TK 1 T PO QID TAT 10/06 completed Not Available Not Available Not Available lithium carbonate ER 300 mg tablet,ex tended release TK 4 TS PO QD IN THE MORNING 10/06 completed Not Available Not Available Not Available hydroxyzi ne HCl 50 mg tablet TAKE 1 TABLET BY MOUTH EVERY DAY AT BEDTIME 10/06 completed Not Available Not Available Not Available acetamino phen 300 mg-codein e 30 mg tablet TK 1 TO 2 TS PO Q 4 H PRF MODERATE TO SEVERE PAIN 10/06 completed Not Available Not Available Not Available valacyclo vir 500 mg tablet TK 1 T PO QD 10/06 completed Not Available Not Available Not Available ciproflox acin 500 mg tablet TAKE 1 TABLET BY MOUTH TWICE DAILY FOR 7 DAYS active Not Available Not Available No t Available tramadol 50 mg tablet TK 1 TO 2 TS PO Q 6 TO 8 H PRN P 10/06 completed Not Available Not Available Not Available citalopra m 20 mg tablet take 1 tablet by oral route every day 06/03 completed Prescrib ed Elsewher e: No [facility] By: raymond zunigauntgiovana DateTime : 11/29/19 18 02:45:00 PM Not Available Not Available Not Available Metrogel Vaginal 0.75 % (37.5 mg/5 gram) insert 1 applicat orful by vaginal route every day at bedtime 12/04 completed Prescrib ed Elsewher e: No Locat ion: [facility] odify By: brittni blake DateTime : 11/29/19 19 01:59:41 PM Not Available Not Available Not Available famotidin e 20 mg tablet TAKE 1 TABLET BY MOUTH TWICE DAILY active Not Available Not Available No t Available amitripty line 25 mg tablet TK 1 T PO QD HS 10/06 completed Not Available Not Available Not Available Depo-Prov era 150 mg/mL intramusc ular suspensio n inject 1 millilit er by intramus cular route every 3 months 06/03 completed Prescrib ed Elsewher e: No Locat ion: [facility] odify By: raymond zunigauntgiovana DateTime : 02/12/20 18 03:15:00 PM Not Available Not Available Not Available trazodone 100 mg tablet TK 1 T PO QD HS 10/06 completed Not Available Not Available Not Available Flagyl 500 mg tablet take 1 tablet by oral route every 12 hours 07/24 completed Prescrib ed Elsewher e: No Locat ion: [facility] odify By: raymond zunigauntgiovana DateTime : 05/22/20 17 09:00:46 AM Not Available Not Available Not Available benzonata te 100 mg capsule 10/06 completed Not Available Not Available Not Available trazodone 150 mg tablet TAKE 1 TABLET BY MOUTH EVERY DAY AT BEDTIME active Not Available Not Available No t Available buspirone 10 mg tablet TAKE 1 TABLET BY MOUTH TWICE DAILY 10/06 completed Not Available Not Available Not Available Valtrex 1 gram tablet take 1 tablet by oral route every 12 hours 10/06 completed Prescrib ed Elsewher e: No Locat ion: [facility] odify By: brittni blake DateTime : 12/18/19 01:29:15 PM Not Available Not Available Not Available hydroxyzi ne HCl 25 mg tablet TAKE 1 TABLET BY MOUTH THREE TIMES DAILY NEEDED 10/06 completed Not Available Not Available Not Available gabapenti n 100 mg capsule TK 1 C PO TID PRN 10/06 completed Not Available Not Available Not Available ergocalci ferol (vitamin D2) 1,250 mcg (50,000 unit) capsule TK 1 C PO Q WK 10/06 completed Not Available Not Available Not Available albuterol sulfate HFA 90 mcg/actua tion aerosol inhaler INL 2 PFS PO Q 4 H PRF WHZ OR SOB 10/06 completed Not Available Not Available Not Available ondansetr on 4 mg disintegr ating tablet DIS 1 T ON THE TONGUE Q 4 H PRF NAUSEA OR VOM 10/06 completed Not Available Not Available Not Available topiramat e 100 mg tablet TK 1 T PO BID 10/06 completed Not Available Not Available Not Available fluoxetin e 20 mg capsule TAKE 2 CAPSULES BY MOUTH EVERY DAY IN THE MORNING 10/06 completed Not Available Not Available Not Available amoxicill in 875 mg-potass ium clavulana te 125 mg tablet TK 1 T PO BID FOR 10 DAYS 10/06 completed Not Available Not Available Not Available Bactrim DS 800 mg-160 mg tablet take 1 tablet by oral route every 12 hours 07/30 completed Prescrib ed Elsewher e: No Locat ion: [facility] odify By: leslye Miranda ter DateTime : 06/20/20 18 02:30:00 PM Not Available Not Available Not Available NuvaRing 0.12 mg-0.015 mg/24 hr vaginal insert 1 vaginal ring by vaginal route every week continuo usly 08/13 completed Prescrib ed Elsewher e: No Locat ion: [facility] odify By: leslye Miranda ter DateTime : 06/28/19 19 08:45:00 AM Not Available Not Available Not Available Zithromax 500 mg tablet take 2 tablet by oral route once 06/03 completed Prescrib ed Elsewher e: No Locat ion: [facility] odify By: raymond zunigaunter DateTime : 01/24/20 18 09:23:31 AM Not Available Not Available Not Available escitalop reinaldo 20 mg tablet TK 1 T PO QD 10/06 completed Not Available Not Available Not Available aripipraz ole 5 mg tablet TK 1 T PO QD IN THE MORNING 10/06 completed Not Available Not Available Not Available bupropion HCl XL 150 mg 24 hr tablet, extended release TK 1 T PO QD IN THE MORNING 10/06 completed Not Available Not Available Not Available topiramat e 50 mg tablet TK 1 T PO BID 10/06 completed Not Available Not Available Not Available Ortho-Cyc harper (28) 0.25 mg-35 mcg tablet take 1 tablet by oral route every day 06/03 completed Prescrib ed Elsewher e: No Locat ion: [facility] odify By: raymond zunigaunter DateTime : 03/19/20 18 01:30:00 PM Not Available Not Available Not Available nitrofura ntoin monohydra te/macroc rystals 100 mg capsule 10/06 completed Not Available Not Available Not Available Nexplanon 68 mg subdermal implant 10/31 completed Prescrib ed Elsewher e: Yes Loca tion: [facility] odify By: brittni blake DateTime : 10/28/19 14 10:00:00 AM Not Available Not Available Not Available 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 A 28 mg iron-1 mg-200 mg capsule take 1 capsule by oral route every day 06/03 completed Prescrib ed Elsewher e: No [facility]at [facility] odify By: amkuhnelli Nessa ncounter DateTime : 05/02/20 17 10:49:43 AM Not Available Not Available Not Available 19 29 mg iron-1 mg chewable tablet chew 1 tablet by oral route every day 10/23 completed Prescrib ed Elsewher e: No [facility] odify By: amkuhnelli [address]zymanski ncounter DateTime : 03/07/20 13 01:19:00 PM Not Available Not Available Not Available Aurovela Fe 1-20 (28) 1 mg-20 mcg (21)/75 mg (7) tablet TAKE 1 TABLET BY MOUTH EVERY DAY active Not Available Not Available No t Available Vitals Date Recorded Body height Body mass index (BMI) Body weight Systolic blood pressure Diastolic blood pressure Provider Name and Address Organization Details Last Updated DateTime 10/06/2020 170.18 cm 36.2 kg/m2 908294.8 4 g 123 mm[Hg] 88 mm[Hg] [facility] 14:41:29 Social History Question Answer Notes LastModified by Organizat ion Details LastModified Time Tobacco Smoking Status Never Smoker [facility] 10/06/2020 14:43:05 What Is Your Level Of Alcohol Consumption? None Information not available 10/06/2020 Do You Use Any Illicit Or Recreational Drugs? No Information not available 10/06/2020 Sex: Unknown Functional Status None recorded. Mental Status None recorded. Family History Relationship Description Onset Age of this Age Resolved Age Notes LastModified by Organization Details LastModified Time Sister Asthma [email or web address] Not available 13:39:26 Notes:Sister: Asthma Medical History Condition Response Allergies (Food, seasonal, environmental ) N Other N Drug/Latex Allergies/Reactions N Breast Cancer N Blood Transfusion N Lung Disease N Dermatologic Disorders N Defects or Inherited Disease N Breast Problem N Gestational Diabetes N Hematologic disorders N Anesthesia Complications N History of STI Y Deep Vein Thrombosis N Polycystic ovary syndrome N Anxiety Disorder N Autoimmune disease N Arthritis N Polyps N Infertility N Acid Reflux (GERD) N History of abnormal pap N Cancer N Varicosities N Stroke N Neurologic/Epilepsy N Endometriosis N High Cholesterol N Fibromyalgia N Headaches N Kidney Disease N Heart Problems N Thyroid Problems N Kidney or Bladder Problems N GI Problems N Eating Disorder N Anemia N Art (IVF or FET) N Psychiatric Illness N Ovarian Cancer N Diabetes N Pulmonary (TB, Asthma) N Hepatitis/Liver Disease N No Past Medical History N Eczema N Urinary Tract Infection N Abuse/Domestic Violence N Asthma N Trauma/Violence N Depression/ depression N Heart Disease N Pre-Eclampsia N Hypertension N Osteoporosis N Thrombophilias N Gynecological History Statement/Question Response Date of Last Pap Smear 12/31/2018 Current Control Method Tubal Ligat ion Obstetrics History GPAL:G 2 P 2 0 0 2 Type Value Full Term 2 Living 2 Total 2 Past Encounters Encounter ID Performer Location Encounter Start Date Encounter Closed Date Diagnosis/Indication Diagnosis SNOMED-CT Code Diagnosis ICD10 Code Diagnosis Note [id number] Rosi Henriquez MD [place] [address] [address] 10/06/2020 14:27:10 10/06/2020 15:48:34 Menometrorrhagia 281943487 N92.1 Body mass index 30+ - obesity 345756794 Z68.36 Health Concerns Section Related Observation LastModified by Organization Detai ls LastModified Time None Recorded Concern Status LastModified by Organization Details LastModified Time None Recorded Advance Directives Directive None Recorded Payers Encounter Date Sequence Insurance Name Policy Number Policy Lawrence Covered Member ID Lawrence Member ID Guarantor Name 10/06/2020 1 [facility] (MEDICAID HMO) [id number] Sandra Collplant [id number] Sandra Conor Notes Date Note Type Note Provider Name and Address Organization Details Recorded Time 10/06/2020 text/html Pt is a 25yo here complaining of irregular and heavy bleeding. Tubes tied 07/2018, then periods stopped for 6 mos, then were regular for about a year, then the last few months have been too frequent, long, heavy with big clots, and worse cramps. soaking ultra tampons in 1-2 hours. Gained 20# last year, lost 15 of it. Additional concerns: always feels hot sexually active:y contraception: tubes tied Last annual exam: 12/2018 Rosi Henriquez MD [address], [place], [address], [facility] 10/06/2020 15:44:42 OBGyn Episode Ob Episode Information Episode Created Date Number of Fetuses Patient Bloodtype Patient rh Status Prepregnancy Weight lbs Domestic Partner Domestic Partner Phone Father Name Warranty Manager Status 10/07/19 21 1 CLOSED Fetus Data First Name Last Name Admitted to NICU Weight (g) Sex Living Outcome Pediatric Complications Fetus ID Race Codes Race Delivery Type [phone] [phone] F Full Term [id number] Vaginal Delivery Dread Calculation Initial Dread Date Initial Exam Date Initial Exam Provider Initial Ultrasound Date Last Menstrual Period Date Ultra Sound Weeks Gestation 0 Eighteen To Twenty Week Dread Update Ultra Sound Date Fundal Height At Umbil Quickening Date Ultra Sound Latest Weeks Gestation Final Dread Confirmed By Final Dread Confirmed Date Final Dread Date Ultra Sound Latest Days Gestation 0 0 Menstrual History Last Menstrual Date Menses Monthly On Bcp Conception Prior Menses Frequency Hcg Plus Date Menarche Onset Age Delivery Information Delivery Date Delivery Type Labor Anesthesia Weeks Gestation Incision Type Labor Labor Length Hrs Delivered By Post Complications Tubal Sterilization Discharge Date Comments 8 38.3 +chlamyd i a Discharge Information Feeding Method Contraceptive Method Maternal HG B and HCT Levels Ob Episode Information Episode Created Date Number of Fetuses Patient Bloodtype Patient rh Status Prepregnancy Weight lbs Domestic Partner Domestic Partner Phone Father Name Warranty Manager Status 10/07/19 21 1 CLOSED Fetus Data First Name Last Name Admitted to NICU Weight (g) Sex Living Outcome Pediatric Complications Fetus ID Race Codes Race Delivery Type [id number] [id number] F Full Term [id number] Vaginal Delivery Dread Calculation Initial Dread Date Initial Exam Date Initial Exam Provider Initial Ultrasound Date Last Menstrual Period Date Ultra Sound Weeks Gestation 0 Eighteen To Twenty Week Dread Update Ultra Sound Date Fundal Height At Umbil Quickening Date Ultra Sound Latest Weeks Gestation Final Dread Confirmed By Final Dread Confirmed Date Final Dread Date Ultra Sound Latest Days Gestation 0 0 Menstrual History Last Menstrual Date Menses Monthly On Bcp Conception Prior Menses Frequency Hcg Plus Date Menarche Onset Age Delivery Information Delivery Date Delivery Type Labor Anesthesia Weeks Gestation Incision Type Labor Labor Length Hrs Delivered By Post Complications Tubal Sterilization Discharge Date Comments 4 39 Discharge Information Feeding Method Contraceptive Method Maternal HG B and HCT Levels
[2024-08-09 10:37] VITALS: BP 143/117; PULSE 82; RESP 16; TEMP 36.8; O2SAT 100
--- NOTE | 2024-08-09 11:29 | ED.ALLEREA ---
HPI - Allergic Reaction General Chief complaint: Allergic Reaction Stated complaint: allergic reaction to latex gloves Source: patient Mode of arrival: ambulatory Limitations: no limitations History of Present Illness HPI narrative: Patient presents for evaluation of allergic reaction. 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 She recently changed jobs. At her previous place of employment she worked with latex-free gloves. At her new place of employment they use latex gloves. Yesterday she noted redness, itching and swelling in her hands after wearing latex gloves. She applied benadryl cream and states her symptoms are improving. Her employer asked her to come in today to get a note indicating that she will need to be provided with latex-free gloves while at work. Related Data Home Medications ?Medication ?Instructions ?Recorded ?Confirmed ?Last Taken ?Type dextroamphetamine-amphetamine 5 mg 5 mg PO QNOON 01/23/24 04/24/24 Unknown History tablet dextroamphetamine-amphetamine ER 15 mg PO QAM 01/23/24 04/24/24 Unknown History 15 mg 24hr capsule,extend release quetiapine 50 mg tablet 50 mg PO HS 01/23/24 04/24/24 Unknown History topiramate 50 mg tablet 50 mg PO DAILY 01/23/24 04/24/24 Unknown History Allergies Allergy/AdvReac Type Severity Reaction Status Date / Time measles, mumps, and rubella Allergy Severe Swelling Verified 08/09/24 10:55 vaccine lamotrigine Allergy Intermediate Rash Verified 08/09/24 10:55 latex Allergy Intermediate Rash Verified 08/09/24 10:55 Review of Systems Review of Systems: CONSTITUTIONAL: Denies fever, chills, or sweats. EYES: Denies visual changes, redness, or discharge. ENT: Denies rhinorrhea, congestion, sore throat, or otalgia. CARDIOVASCULAR: Denies chest pain, palpitations, or edema. RESPIRATORY: Denies cough or dyspnea. GASTROINTESTINAL: Denies abdominal pain, nausea, vomiting, or diarrhea. GENITOURINARY: Denies dysuria or hematuria. SKIN: Reports itching and redness to both hands. MUSCULOSKELETAL: Reports swelling in both hands. Denies back pain, joint pain, or myalgia. NEUROLOGIC: Denies headache, numbness, dizziness, or weakness. PSYCHIATRIC: Denies anxiety or depression. [facility] Past Medical History Medical History ADHD (attention deficit hyperactivity disorder) Knee effusion Anxiety and depression Sinusitis Surgical History Surgical History History of tonsillectomy Tubal ligation status Family History Family History Mother Family history non-contributory Social History Social History Smoking status: Former smoker Tobacco type: cigarettes Smoking end date: 06/25/19 Substance use: never Living arrangements: with family Gender identity (if verbalized by the patient): Female Sexual Orientation (if Verbalized by the Patient): Straight or Heterosexual Spiritual care concerns: No Exam Narrative: GENERAL: Well-appearing, well-nourished, and in no acute distress. HEAD: Normocephalic, atraumatic. EYES: PERRLA and EOMI. ENT: Nares clear, no rhinorrhea or epistaxis. Mucous membranes moist. Oropharynx without tonsillar hypertrophy exudate or other lesions. Bilateral TMs pearly jefferson nonbulging NECK: Supple. No adenopathy or masses. No carotid bruits or JVD CHEST: Clear to auscultation. No respiratory distress. No wheezes rales or rhonchi HEART: Regular rate and rhythm. No murmur heard. Normal peripheral pulses. ABDOMEN: Soft, nontender, nondistended, normal active bowel sounds. EXTREMITIES: Normal range of motion. No edema. SKIN: There is erythema and petechiae to both hands in a glove formation. NEURO: No focal deficits. Alert and oriented x3. PSYCH: Normal mood and affect. Course Course Emergency Course: This is a 29-year-old female who presented for evaluation of allergic reaction to latex clothes. She will be discharged with Medrol Dosepak. Provided her with a note requesting her prior to provide her with latex-free gloves. She should follow up outpatient and go to the ER for worsening symptoms. Pt in agreement with plan of care. Level of Care: Express Care Visit Vital Signs Vital signs: Vital Signs Temperature 36.8 C 08/09/24 10:37 Pulse Rate 82 08/09/24 10:37 Respiratory Rate 16 08/09/24 10:37 Blood Pressure 143/117 H 08/09/24 10:37 Pulse Oximetry 100 08/09/24 10:37 Oxygen Delivery Room Air 08/09/24 10:37 Temperature 36.8 C 08/09/24 10:37 Pulse Rate 82 08/09/24 10:37 Respiratory Rate 16 08/09/24 10:37 Blood Pressure 143/117 H 08/09/24 10:37 Pulse Oximetry 100 08/09/24 10:37 Oxygen Delivery Room Air 08/09/24 10:37 Discharge Plan Discharge Clinical Impression: Allergic reaction Patient Disposition: Home, Self-Care Condition: Stable Instructions: Antibiotic Form, General Allergic Reaction (ED) Patient Language: Sierra Leonean Prescriptions: New methylprednisolone [Medrol (Abiel)] 4 mg tablets,dose pack See Rx Instructions .ROUTE .COMPLEX Qty: 21 0RF Rx Instructions: for 6 days No Action dextroamphetamine-amphetamine 5 mg tablet 5 mg PO QNOON dextroamphetamine-amphetamine 15 mg capsule,extended release 24hr 15 mg PO QAM quetiapine 50 mg tablet 50 mg PO HS topiramate 50 mg tablet 50 mg PO DAILY Follow-up/Referrals: Bora Pulido MD [Physician] - Stand Alone Forms: Work/School Release IP Time of Disposition: 11:27
== END 2024-08-09 11:30 | disposition home or self-care (01) ==
PROVIDERS: Emergency Provider Nurse Practitioner
DX: T65.811A Toxic effect of latex, accidental (unintentional), initial encounter (principal); Z87.891 Personal history of nicotine dependence
CPT/HCPCS: 99213; G0463

== ENCOUNTER 2024-09-22 16:37 | Emergency (ER) | payer OTHER, SELFPAY ==
--- NOTE | 2024-09-22 16:51 | ED_ITS ---
HPI - General Adult General Chief complaint: Skin/Abscess/Foreign Body Stated complaint: rash on hands Time Seen by Provider: 09/22/24 16:53 Source: patient, RN notes reviewed and old records reviewed Mode of arrival: ambulatory Limitations: no limitations History of Present Illness HPI narrative: 29-year-old female presents to the [facility] with a rash to her bilateral hands. 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 Tried using latex gloves at the supplied and broke up to dry itchy rash to the top of her hands. States that she tries washing come in the burn. Related Data Home Medications ?Medication ?Instructions ?Recorded ?Confirmed ?Last Taken ?Type dextroamphetamine-amphetamine 5 mg 5 mg PO QNOON 01/23/24 04/24/24 Unknown History tablet dextroamphetamine-amphetamine ER 15 mg PO QAM 01/23/24 04/24/24 Unknown History 15 mg 24hr capsule,extend release topiramate 50 mg tablet 50 mg PO DAILY 01/23/24 04/24/24 Unknown History mirtazapine 7.5 mg tablet mg 09/22/24 Unknown History Allergies Allergy/AdvReac Type Severity Reaction Status Date / Time measles, mumps, and rubella Allergy Severe Swelling Verified 08/09/24 10:55 vaccine lamotrigine Allergy Intermediate Rash Verified 08/09/24 10:55 latex Allergy Intermediate Rash Verified 08/09/24 10:55 Review of Systems Review of Systems: All systems reviewed & are unremarkable except as noted in HPI and below Constitutional: Constitutional: Reports no additional constitutional complaints ENT: Reports system reviewed and no additional complaints, except as documented Cardiovascular: Cardiovascular: Reports no additional cardiovascular complaints, Denies chest pain and Denies dyspnea Respiratory: Respiratory: Reports no additional respiratory complaints, Denies chest congestion, Denies cough and Denies dyspnea Musculoskeletal: Musculoskeletal: Reports no additional musculoskeletal complaints Integumentary/Breasts: Skin/Breast: Reports as per HPI [facility] Past Medical History Medical History ADHD (attention deficit hyperactivity disorder) Knee effusion Anxiety and depression Sinusitis Surgical History Surgical History History of tonsillectomy Tubal ligation status Family History Family History Mother Family history non-contributory Social History Social History Smoking status: Former smoker Tobacco type: cigarettes Smoking end date: 06/25/19 Substance use: never Living arrangements: with family Gender identity (if verbalized by the patient): Female Sexual Orientation (if Verbalized by the Patient): Straight or Heterosexual Spiritual care concerns: No Comments At the time of my signature, I reviewed and agree with the nursing past medical, surgical, social, and family history. There is no relevant family history pertinent to the patient complaint. Exam Const: General: cooperative, healthy appearing, comfortable, no acute distress, well developed, alert and well nourished Nutritional Appearance: well nourished Orientation/consciousness: patient oriented x3 Limitations: no limitations HENMT: Head: normal to inspection Eyes: General: appearance normal, both eyes and all related structures Alignment and Position: alignment normal Neck: Neck: normal visual inspection, full ROM, no lymphadenopathy and no meningeal signs Chest: Chest palpation & inspection: normal inspection of the chest Resp: Effort & Inspection: normal respiratory effort and able to speak in c omplete sentences Cardio: Rate: regular rate Skin: General skin exam: normal color and no rashes or lesions noted Rashes: rashes noted (Bilateral dorsal hands, red, dry rash.) Neuro: General: patient oriented x3, gait normal, moves all extremities and no meningeal signs Cognition (Neuro): normal cognition Speech: normal speech Gait exam (Neuro): Normal gait present Extrem: General: normal to inspection, full ROM, capillary refill normal and normal gait Psych: Appearance: grossly normal and well kempt Mental Status: mental status grossly normal Speech and movement: Normal speech and movement present and Clear speech present Affect: normal affect Attitude: cooperative Course Course Level of Care: Express Care Visit Vital Signs Vital signs: Vital Signs Temperature 97.4 F L 09/22/24 16:52 Pulse Rate 83 09/22/24 16:52 Respiratory Rate 20 09/22/24 16:52 Blood Pressure 151/93 H 09/22/24 16:52 Pulse Oximetry 100 09/22/24 16:52 Oxygen Delivery Room Air 09/22/24 16:52 Temperature 97.4 F L 09/22/24 16:52 Pulse Rate 83 09/22/24 16:52 Respiratory Rate 20 09/22/24 16:52 Blood Pressure 151/93 H 09/22/24 16:52 Pulse Oximetry 100 09/22/24 16:52 Oxygen Delivery Room Air 09/22/24 16:52 Reviewed Medical Decision Making MDM Narrative Medical decision making narrative: Patient sitting comfortably in exam room. Nontoxic, vitals stable. Patient in no acute distress Patient presents for bilateral hand rash after changing gloves at work. Patient appropriate for outpatient treatment with close follow-up Discharge instructions reviewed with patient, as well as provided in writing per nursing staff. The instructions also include specific and strict return/GO TO THE ER as well as f/u information. All questions have been answered, and the patient deny any further questions with discharge and discharge plan. Some parts of this dictation were generated by voice recognition software and may contain typographical and/or grammatical inaccuracies. Differential Diagnosis Differential Diagnosis: Contact dermatitis, allergic reaction Medical Records Medical records reviewed: Yes I reviewed the external patient's medical records. Vital Signs Vital Signs: Vital Signs Temperature 97.4 F L 09/22/24 16:52 Pulse Rate 83 09/22/24 16:52 Respiratory Rate 20 09/22/24 16:52 Blood Pressure 151/93 H 09/22/24 16:52 Pulse Oximetry 100 09/22/24 16:52 Oxygen Delivery Room Air 09/22/24 16:52 Temperature 97.4 F L 09/22/24 16:52 Pulse Rate 83 09/22/24 16:52 Respiratory Rate 20 09/22/24 16:52 Blood Pressure 151/93 H 09/22/24 16:52 Pulse Oximetry 100 09/22/24 16:52 Oxygen Delivery Room Air 09/22/24 16:52 Reviewed Lab Data Lab results reviewed: Yes I reviewed the patient's lab results. Labs: Reviewed Critical Care Time Critical Care Time Critical Care Time: No Discharge Plan Discharge Clinical Impression: Contact dermatitis Qualifiers: Contact dermatitis type: unspecified Contact dermatitis trigger: unspecified trigger Qualified Code(s): L25.9 - Unspecified contact dermatitis, unspecified cause Patient Disposition: Home, Self-Care Condition: Stable Instructions: Antibiotic Form, Contact Dermatitis (DC) Additional Instructions: The most important part of your care is follow up with Primary care provider. Take Zyrtec every day Take Pepcid 20mg daily for 7 days Uses steroid cream twice daily. Please be careful when in the son, this can increase the chances of burning Avoid hot showers, Take cool showers. Hot showers will make rashes worse Apply cool compresses every 2-3 hours for 15 minutes Go to the ER for new or worsening symptoms such as shortness of breath. Patient Language: Colombian Prescriptions: New triamcinolone acetonide 0.1 % cream 1 applic topical BID Qty: 30 0RF No Action dextroamphetamine-amphetamine 5 mg tablet 5 mg PO QNOON dextroamphetamine-amphetamine 15 mg capsule,extended release 24hr 15 mg PO QAM topiramate 50 mg tablet 50 mg PO DAILY mirtazapine 7.5 mg tablet Follow-up/Referrals: PHYSICIAN NOT ON STAFF,NONSTAFF [Primary Care Provider] - Stand Alone Forms: Work/School Release IP Time of Disposition: 17:02
[2024-09-22 16:52] VITALS: BP 151/93; PULSE 83; RESP 20; TEMP 36.3; O2SAT 100
--- OUTSIDE RECORDS SUMMARY | 2024-09-22 17:37 | XMS_ITS | Data Portability ---
Author Organization [facility] [place] Address [address] [place] [address] Assessment Encounter Date Assessment Date Assessment LastModified by Organization Details LastModified Time 10/06/2020 10/06/2020 PCOS labs, A1C, TSH US to be scheduled discussed ocp to regulate bleeding, pt desires Discussed the usage, side effects, risks, and benefits of OCP use. Questions answered. Prescription given for microgestin. She will start OCP with next menses WWE and med check 3 mos Not available 10/06/2020 15:44:25 Plan of Treatment Reminders Order Date Submit Date Provider Last Modified By Organization Details Last Modified Time Details Appointments None recorded. Lab testosteron e, free + total, serum 2020 021 [facility] (Lab), [address] [place], [address], 1 10:47:42 dhea-sulfat e, serum 2020 021 [facility] (Lab), [address] [place], [address], 1 17:24:19 estradiol, serum 2020 021 [facility] (Lab), [address] [place], [address], 1 17:24:17 FSH (follicle-s timulating hormone), serum 2020 021 [facility] (Lab), [address], [place], [address], 1 17:24:18 HbA1c (hemoglobin A1c), blood 2020 [facility] (Lab), [address], [place], [address], 1 17:24:17 prolactin, serum 2020 [facility] (Lab), [address], [place], [address], 1 17:24:18 TSH, serum or plasma 2020 [facility] (Lab), [address], [place], [address], 1 17:24:18 testosteron e free/testos terone total, ratio, serum 2020 [facility] (Lab), [address], [place], [address], 1 17:24:19 Referral None recorded. Procedures None recorded. Surgeries None recorded. Imaging None recorded. Medication Orders Microgestin FE 07/14 (28) 1 mg-20 mcg (21)/75 mg (7) tablet 2020 [id number], [address], [place], [place], [id number], 15:01:27 Patient TargetsNo targets recorded. Patient InstructionsNo [...] >8.0% Actio n sugge sted Not Available [facility] (Lab) [address] [place], [address], 10/12/2020 17:24:17 10/07/19 21 10/06/2020 estra diol, serum estradiol 53.9 pg/mL This assay was perfo rmed using [employer] Cor[employer] ratio n reage nts and test kits. Value s obtai terese with other assay metho ds or kits canno t be used inter [facility] . Femal e Estra diol Range s: Folli cular phase 12.4- 233 pg/mL Ovula tion phase 41.0- 398 pg/mL Lutea l phase 22.3- 341 pg/mL Postm enopa usal< 5-138 pg/mL Healt hy Pregn ant Women 1st Trime ster1 54-32 43 pg/mL 2nd Trime ster1 561-2 1280 pg/mL 3rd Trime ster8 525-> 60585 pg/mL Not Available [facility] (Lab) [address] [facility] [address], [place], [address], 10/12/2020 17:24:17 10/07/19 21 10/06/2020 FSH (foll icle- stimu latin g hormo ne), serum FSH 2.0 mIU/m L This assay was perfo rmed using [employer] ratio n reage nts and test kits. Value s obtai terese with other assay metho ds or kits canno t be used inter [facility] . Femal es Folli cular : 3.5-1 2.5 mIU/m L Ovula tion: 4.7-2 1.5 mIU/m L Lutea l: 1.7-7 .7 mIU/m L Postm enopa use: 25.8- 134.8 mIU/m L Not Available [facility] (Lab) [address] [place], [address], 10/12/2020 17:24:18 10/07/19 21 10/06/2020 TSH, serum or plasm a TSH 0.83 uIU/m L 0.30-[address] [facility] (Lab) [address] [place], [address], 10/12/2020 17:24:18 10/07/19 21 10/06/2020 prola ctin, serum prolactin, total 3.45 NG/mL 4.79-2 3.30 low This assay was perfo rmed using [employer] ratio n reage nts and test kits. Value s obtai terese with other assay metho ds or kits canno t be used inter c[facility] e[facility] . Not Available [facility] (Lab) [address] [facility], [place], [address], 10/12/2020 17:24:18 10/07/19 21 10/06/2020 dhea- sulfa te, serum DHEA-sulfate 305 ug/dL (based on docume nted legal sex) 148-[address] [facility] (Lab) [address] [place], [address], 10/12/2020 17:24:19 10/07/19 21 10/06/2020 testo stero ne free/ testo stero ne total , ratio , serum testosterone , total 25 NG/dL 2-45 For addit ional infor heidy saleem e refer to http: //kerri peters.que [employer]ia gn[employer].c om/fa q/Tot al Testo stero neLCM SMS (This link is being provi ded for infor lars nal/e ducat ional purpo ses only. ) This test was devel oped and its mary tical perfo rmanc e jaron cteri stics have been deter mined by [employer]. It has not been clear ed or appro jesus by the FDA. This assay has been valid ated pursu ant to the CLIA regul ation s and is used for clini beatriz purpo ses. Not Available [facility] (Lab) [address], [place], [address], 10/12/2020 17:24:19 10/07/19 21 10/06/2020 testo stero ne free/ testo stero ne total , ratio , serum testosterone , free 1.3 pg/mL 0.1-6. 4 This test was devel oped and its mary tical perfo rmanc e jaron cteri stics have been deter mined by [employer]. It has not been clear ed or appro jesus by the FDA. This assay has been valid ated pursu ant to the CLIA regul ation s and is used for clini beatriz purpo ses. Perfo rming Organ izati on Infor matio n: Site ID: [id number] Name: [employer] [facility] [facility] Addre ss: [id number] [place] [address] Dire tor: Leonardo kearney M.D. Not Available [facility] (Lab) [address], [place], [address], 10/12/2020 17:24:19 Result Notes None recorded. Problems Name Problem SNOMED Code Status Onset Date Resolution Date Notes Provider Name and Address Organization Details Recorded Time Body mass index 30+ - obesity [id number] Active 2018 Body mass index (BMI) 34.0-34. 9, adult;Re corded Elsewher e: No Locat ion: Anna szymanski [facility] S ource: EHR Torch Heater brandon: N Practi ce ID: 0001 Daniel lable Time: 02:00:00 PM Not Available [employer] 0 18:21:06 Pelvic and perineal pain [id number] Completed 201810/06/2020 Pelvic pain;Rec orded Elsewher e: No Locat ion: Anna szymans[facility] S ource: EHR Torch Heater brandon: N Practi ce ID: 0001 Daniel lable Time: 11:15:00 AM Rosi Henriquez MD [address], [place], [address], [facility] 14:49:12 Surveill ance of contrace ption Completed 201710/06/2020 Encounte r for surveill ance of contrace ptives, unspecif ied;Ipo rded Elsewher e: No Locat ion: [facility] S ource: EHR Torch Heater brandon: N [place] ce ID: 0001 Daniel lable Time: 03:15:00 PM Rosi Henriquez MD [address], [place], [address], [facility] 14:49:48 Syphilis test finding [id number] Completed 201610/06/2020 Encntr screen for infectio ns w sexl mode of transmis s;Record ed Elsewher e: No [facility] S ource: EHR Torch Heater brandon: N Julio ce ID: 0001 Daniel lable Time: 12:00:00 PM Rosi Henriquez MD [address], [place], [address], [facility] 14:49:50 Complica tion of pregnanc y, childbir th and/or puerperi [id number] Completed 201610/06/2020 Oth diseases and conditio ns compl preg/chl dbrth;Re corded Elsewher e: No Locat ion: [facility] S ource: EHR Torch Heater brandon: N Julio ce ID: 0001 Daniel lable Time: 09:15:00 AM Rosi Henriquez MD [address], [place], [address], [facility] 14:49:56 Normal pregnanc y in multigra erwin [id number] 79340 Completed 201710/06/2020 Encounte r for suprvsn of normal pregnanc y, third trimeste r;Record ed Elsewher e: No Locat ion: [facility] S ource: EHR Torch Heater brandon: N [place]ati ce ID: 0001 Daniel lable Time: 02:30:00 PM Rosi Henriquez MD [address], [place], [address], [facility] 14:49:10 Pregnanc y test negative [id number] Completed 201310/06/2020 Pregnanc y examinat ion or test, negative result;R ecorded Elsewher e: No Locat ion: [facility] S ource: EHR Torch Heater brandon: N Martinati ce ID: 0001 Daniel lable Time: 03:30:00 PM Rosi Henriquez MD [address], [place], [address], [facility] 14:49:20 Educatio n Completed 201810/06/2020 Encounte r for family planning advice NOS;Pio rded Elsewher e: No Locat ion: [facility] S ource: EHR Torch Heater brandon: N Julio ce ID: 0001 Daniel lable Time: 11:15:00 AM Rosi Henriquez MD [address], [place], [address], [facility] 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 14:49:41 Contrace ption care manageme nt Completed 01/04/ 2019 10/06/2020 Encounte r for contrace ptive manageme nt, unspecif ied;Pio rded Elsewher e: No Locat ion: [facility] S ource: EHR Torch Heater brandon: N [place] ce ID: 0001 Daniel lable Time: 08:45:00 AM Rosi Henriquez MD [address], [place], [address], [facility] 1 14:48:13 Primigra erwin [id number] Completed 201210/06/2020 Supervis ion of normal first pregnanc y;Record ed Elsewher e: No Locat ion: [facility] S ource: EHR Torch Heater brandon: N [place]ati ce ID: 0001 Daniel lable Time: 01:30:00 PM Rosi Henriquez MD [address], [place], [address], [facility] 1 14:49:22 Amenorrh ea [id number] Completed 201610/06/2020 Amenorrh ea;Recor ded Elsewher e: No Locat ion: [facility] S ource: EHR Torch Heater brandon: N Julio ce ID: 0001 Daniel lable Time: 11:30:00 AM Rosi Henriquez MD [address], [place], [address], [facility] 1 14:47:52 Cyst of ovary Completed 201810/06/2020 Ovarian cyst;Rec orded Elsewher e: No Locat ion: [facility] S ource: EHR Torch Heater brandon: Padmaja Kim ce ID: 0001 Daniel lable Time: 08:45:00 AM Rosi Henriquez MD [address], [place], [address], [facility] 1 14:48:17 Herpetic vulvovag initis [id number] Active 2018 Herpesvi ral vulvovag initis;R ecorded Elsewher e: No Locat ion: [facility] S ource: EHR Torch Heater brandon: N Practi ce ID: 0001 Daniel lable Time: 10:15:00 AM Not Available [facility] 0 18:21:07 Insertio n of subcutan eous contrace ptive Completed 201310/06/2020 Insertio n of implanta ble subderma l contrace ptive;Re corded Elsewher e: No Locat ion: [facility] n[facility] S ource: EHR Torch Heater brandon: N Practi ce ID: 0001 Daniel lable Time: 10:17:00 AM Rosi Henriquez MD [address], [place], [address], [facility] 14:49:01 Infectio n screenin g Completed 201710/06/2020 Encounte r for screenin g for oth infec/pa rastc diseases ;Recorde d Elsewher e: No [facility] S ource: EHR Torch Heater brandon: N Martinati ce ID: 0001 Daniel lable Time: 03:00:00 PM Rosi Henriquez MD [address], [place], [address], [facility] 1 14:48:55 Postpart um care Completed 201310/06/2020 Post Followup ;Recorde d Elsewher e: No [facility] S our[facility]: EHR Torch Heater brandon: N Martinati ce ID: 0001 Daniel lable Time: 03:30:00 PM Rosi Henriquez MD [address], [place], [address], [facility] 1 14:49:16 Ultrason ography Completed 201210/06/2020 Antenata l screenin g for malforma tion using ultrason ics;Pio rded Elsewher e: No [facility] S ource: EHR Torch Heater brandon: N Practi ce ID: 0001 Daniel lable Time: 01:00:00 PM Rosi Henriquez MD [address], [place], [address], [facility] 14:49:59 Antenata l screenin g Completed 201210/06/2020 Antenata l screenin g for malforma tion using ultrason ics;Pio rded Elsewher e: No Locat ion: [facility] S ource: EHR Torch Heater brandon: N Practi ce ID: 0001 Daniel lable Time: 01:00:00 PM Rosi Henriquez MD [address], [place], [address], [facility] 14:47:54 Congenit al malforma tion [id number] Completed 201210/06/2020 Antenata l screenin g for malforma tion using ultrason ics;Pio rded Elsewher e: No Locat ion: [facility] S ource: [facility] Torch Heater brandon: N Martinati ce ID: 0001 Daniel lable Time: 01:00:00 PM Rosi Henriquez MD [address], [place], [address], [facility] 14:48:11 Antenata l screenin g for malforma tion Completed 201710/06/2020 Encounte r for antenata l screenin g for malforma tions;Re corded Elsewher e: No Locat ion: [facility] S ource: EHR Torch Heater brandon: N Practi ce ID: 0001 Daniel lable Time: 08:15:00 AM Rosi Henriquez MD [address], [place], [address], [facility] 14:48:01 Screenin g for malignan t neoplasm of cervix Completed 201710/06/2020 Encounte r for screenin g for malignan t neoplasm of cervix;R ecorded Elsewher e: No Locat ion: [facility] S ource: EHR Torch Heater brandon: N Practi ce ID: 0001 Daniel lable Time: 02:30:00 PM Rosi Henriquez MD [address], [place], [address], [facility] 14:49:28 Gestatio n less than 9 weeks [id number] Completed 201610/06/2020 Less than 8 weeks gestatio n of pregnanc y;Record ed Elsewher e: No Locat ion: [facility] S ource: EHR Torch Heater brandon: N Practi ce ID: 0001 Daniel lable Time: 12:00:00 PM Rosi Henriquez MD [address], [place], [address], [facility] 14:48:35 Threaten ed miscarri age [id number] Completed 201210/06/2020 Threaten ed , antepart um;Recor ded Elsewher e: No Locat ion: [facility] S ource: EHR Torch Heater brandon: N Practi ce ID: 0001 Daniel lable Time: 02:30:00 PM Rosi Henriquez MD [address], [place], [address], [facility] 14:49:52 Speciali zed medical examinat ion Completed 201210/06/2020 Routine gynecolo gical examinat ion;Prac christina ID: 0001 Rosi Henriquez MD [address], [place], [address], [facility] 14:49:43 Vaginal abnormal ity complica ting antenata l care - baby not yet delivere d [id number] Completed 201310/06/2020 Congenit al or acquired abnormal ity of vagina, antepart um conditio n or complica tion;Pra ctice ID: 0001 Rosi Henriquez MD [address], [place], [address], [facility] 14:50:10 Labor and delivery complica kit by heart rate anomaly [id number] Completed 201310/06/2020 HEART RATE NON REASSURI NG;Pract ice ID: 0001 Rosi Henriquez MD [address], [place], [address], [facility] 14:49:04 Delivery normal [id number] Completed 201310/06/2020 Normal delivery ;Practic e ID: 0001 Rosi Henriquez MD [address], [place], [address], [facility] 14:48:19 Single live [id number] Completed 201310/06/2020 Mother with single liveborn ;Practic e ID: 0001 Rosi Henriquez MD [address], [place], [address], [facility] 14:49:37 Procedur e Completed 201610/06/2020 Enctr srvlnc implanta ble subderma l contrace ptive;Pr actice ID: 0001 Rosi Henriquez MD [address], [place], [address], [facility] 14:49:24 Secondar y amenorrh ea [id number] Completed 201610/06/2020 Secondar y amenorrh ea;Pract ice ID: 0001 Rosi Henriquez MD [address], [place], [address], [facility] 14:49:30 Pregnanc y detectio n examinat ion Completed 201610/06/2020 Encounte r for pregnanc y test, result positive ;Practic e ID: 0001 Rosi Henriquez MD [address], [place], [address], [facility] 14:49:18 Hemorrha gic complica tion of pregnanc y [id number] Completed 201610/06/2020 Other hemorrha ge in early pregnanc y;Practi ce ID: 0001 Rosi Henriquez MD [address], [place], [address], [facility] 14:48:52 Vaginiti s in pregnanc y [id number] Completed 201610/06/2020 Infectio n oth prt genitl trct in pregnanc y, second trimeste r;Practi ce ID: 0001 Rosi Henriquez MD [address], [place], [address], [facility] 14:50:13 Gestatio n period, 14 weeks [id number] Completed 201610/06/2020 14 weeks gestatio n of pregnanc y;Practi ce ID: 0001 Rosi Henriquez MD [address], [place], [address], [facility] 14:48:33 Gestatio n period, 15 weeks [id number] Completed 201610/06/2020 15 weeks gestatio n of pregnanc y;Practi ce ID: 0001 Rosi Henriquez MD [address], [place], [address], [facility] 14:48:37 heart finding Completed 201710/06/2020 Abnlt in heart rate and rhythm comp labor and delivery ;Practic e ID: 0001 Rosi Henriquez MD [address], [place], [address], [facility] 14:48:31 Gestatio n period, 30 weeks [id number] Completed 201710/06/2020 30 weeks gestatio n of pregnanc y;Practi ce ID: 0001 Rosi Henriquez MD [address], [place], [address], [facility] 14:48:[address] Concept Completed 201710/06/2020 Decrease d movement s, third trimeste r, unsp;Pra ctice ID: 0001 Rosi Henriquez MD [address], [place], [address], [facility] 14:49:36 Gestatio n period, 31 weeks [id number] Completed 201710/06/2020 31 weeks gestatio n of pregnanc y;Practi ce ID: 0001 Rosi Henriquez MD [address], [place], [address], [facility] 14:48:41 Gestatio n period, 32 weeks [id number] Completed 201710/06/2020 32 weeks gestatio n of pregnanc y;Practi ce ID: 0001 Rosi Henriquez MD [address], [place], [address], [facility] 14:48:43 Dizzines s and giddines s [id number] Completed 201710/06/2020 Dizzines s and giddines s;Practi ce ID: 0001 Rsoi Henriquez MD [address], [place], [address], [facility] 14:48:24 Headache [id number] Completed 201710/06/2020 Headache ;Practic e ID: 0001 Rosi Henriquez MD [address], [place], [address], [facility] 14:48:49 Gestatio n period, 35 weeks [id number] Completed 201710/06/2020 35 weeks gestatio n of pregnanc y;Practi ce ID: 0001 Rosi Henriquez MD [address], [place], [address], [facility] 14:48:45 Umbilicu s finding Completed 201710/06/2020 Labor and delivery complica kit by oth cord comp, unsp;Pra ctice ID: 0001 Rosi Henriquez MD [address], [place], [address], [facility] 14:50:01 Gestatio n period, 38 weeks [id number] Completed 201710/06/2020 38 weeks gestatio n of pregnanc y;Practi ce ID: 0001 Rosi Henriquez MD [address], [place], [address], [facility] 14:48:47 Lochia finding Completed 201710/06/2020 Encounte r for routine postpart um follow-u p;Practi ce ID: 0001 Rosi Henriquez MD [address], [place], [address], [facility] 14:49:05 Insertio n of intraute rine contrace ptive device Completed 201710/06/2020 Encounte r for insertio n of intraute rine contrace ptive device;P ractice ID: 0001 Rosi Henriquez MD [address], [place], [address], [facility] 14:48:59 Abnormal uterine bleeding [id number] 9100 Active 2017 Other specifie d abnormal uterine and vaginal bleeding ;Practic e ID: 0001 Not Available [facility] 0 18:21:17 Contrace ptive sheath status [id number] Completed 201710/06/2020 Encounte r for initial prescrip tion of other contrace ptives;P ractice ID: 0001 Rosi Henriquez MD [address], [place], [address], [facility] 14:48:15 Lesion of ovary Completed 201810/06/2020 Other ovarian cyst, left side;Pra ctice ID: 0001 Rosi Henriquez MD [address], [place], [address], [facility] 14:48:[address] Concept Completed 201710/06/2020 Encntr for general adult medical exam w/o abnormal findings ;Recorde d Elsewher e: No [facility] S ource: EHR Torch Heater brandon: N Practi ce ID: 0001 Daniel lable Time: 02:30:00 PM Rosi Henriquez MD [address], [place], [address], [facility] 14:49:39 Acute vaginiti s [id number] Completed 201810/06/2020 Vaginiti s;Record ed Elsewher e: No Locat ion: Anna szymanski [facility] S ource: EHR Torch Heater brandon: N Practi ce ID: 0001 Daniel lable Time: 08:30:00 AM Rosi Henriquez MD [address], [place], [address], [facility] 14:47:49 Procedur e on genitour inary system Completed 201810/06/2020 Encounte r for surgical aftercar e followin g surgery on the genitour inary system;R ecorded Elsewher e: No [facility] S ource: EHR Torch Heater brandon: N Practi ce ID: 0001 Daniel lable Time: 11:30:00 AM MD [address], [place], [address], [facility] 14:49:26 Postoper ative care Completed 201810/06/2020 Encounte r for surgical aftercar e followin g surgery on the genitour inary system;R ecorded Elsewher e: No Locat ion: [facility] S ource: EHR Torch Heater brandon: N Practi ce ID: 0001 Daniel lable Time: 11:30:00 AM Rosi Henriquez MD [address], [place], [address], [facility] 14:49:14 Backache [id number] Completed 201710/06/2020 Back pain;Rec orded Elsewher e: No Locat ion: [facility] S ource: EHR Torch Heater brandon: N Martinati ce ID: 0001 Daniel lable Time: 09:30:00 AM Rosi Henriquez MD [address], [place], [address], [facility] 14:48:03 Sexually transmit kit infectio us disease [id number] Completed 201810/06/2020 STD;Pio rded Elsewher e: No Locat ion: [facility] S ource: EHR Torch Heater brandon: N Practi ce ID: 0001 Daniel lable Time: 08:30:00 AM MD [address], [place], [address], [facility] 14:49:32 Ana ry postpart um mood disturba nce [id number] Completed 201710/06/2020 Postpart um mood disturba nce;Pio rded Elsewher e: No Locat ion: [facility] S ource: EHR Torch Heater brandon: N Practi ce ID: 0001 Daniel lable Time: 02:45:[address] PM MD [address], [place], [address], [facility] 14:49:54 Clinical finding Completed 201710/06/2020 Presence of (intraut erine) contrace ptive device;R ecorded Elsewher e: No Locat ion: [facility] S ource: EHR Torch Heater brandon: N Practi ce ID: 0001 Daniel lable Time: 03:00:00 PM Rosi Henriquez MD [address], [place], [address], [facility] 14:48:08 Urinary tract infectio us disease [id number] Completed 201810/06/2020 UTI;Pio rded Elsewher e: No Locat ion: Anna szymanski [facility] S ource: EHR Torch Heater brandon: N Practi ce ID: [id number] Daniel lable Time: 08:30:00 AM Rosi Henriquez MD [address], [place], [address], [facility] 14:50:03 Uterine size for dates discrepa ncy [id number] Completed 201210/06/2020 UTERINE SIZE VON-ANTE PAR;Pio rded Elsewher e: No [facility]at [facility] [facility] S ource: EHR Torch Heater brandon: N Practi ce ID: [id number] Daniel lable Time: 05:00:00 PM Rosi Henriquez MD [address], [place], [address], [facility] 14:50:06 Steriliz ation procedur e Completed 201810/06/2020 Encounte r for steriliz ation;Pr actice ID: [id number] Rosi Henriquez MD [address], [place], [address], [facility] 14:49:45 Problem Notes None recorded. Procedures Surgical History Date Name Laterality Status Provider Name and Address Organization Details Recorded Time 01/01/20 19 Date of Last Pap Smear completed [facility] 10/06/2020 14:38:40 08/06/19 19 ligation of bilateral fallopian tubes completed [facility] 10/06/2020 14:34:56 06/25/19 03 Tonsillectomy completed [facility] 02/24/2020 13:36:08 Imaging Results None recorded. Procedure Notes None recorded. Medical Equipment None Reported. Allergies Allergen ID Allergen Name Allergen Category Reaction Reaction Severity Criticality Documentation Date Start Date Code Code System Note Provider Name and Address Organization Details Recorded Time 1898 measles, mumps, rubella,a nd varicella live vaccine medicatio n Not available Not available Not available 02/24/2020 UNK Trisha [facility] 0 13:34:13 Medications Name Sig Start [...] Prescrib ed Elsewher e: No [facility] By: raymond zunigauntgiovana DateTime : 11/29/19 18 02:45:00 PM Not Available Not Available Not Available Metrogel Vaginal 0.75 % (37.5 mg/5 gram) insert 1 applicat orful by vaginal route every day at bedtime 12/04 completed Prescrib ed Elsewher e: No Locat ion: [facility] odify By: brittni blake DateTime : 11/29/19 [...] Prescrib ed Elsewher e: No Locat ion: [facility] odify By: raymond zunigauntgiovana DateTime : 02/12/20 18 03:15:00 PM Not Available Not Available Not Available trazodone 100 mg tablet TK 1 T PO QD HS 10/06 completed Not Available Not Available Not Available Flagyl 500 mg tablet take 1 tablet by oral route every 12 hours 07/24 completed Prescrib ed Elsewher e: No Locat ion: [facility] odify By: raymond zunigauntgiovana DateTime : 05/22/20 [...] Elsewher e: No Locat ion: [facility] odify By: brittni blake DateTime : 12/18/19 [...] Elsewher e: No Locat ion: [facility] odify By: leslye Miranda ter DateTime : 06/20/20 18 02:30:00 PM Not Available Not Available Not Available NuvaRing 0.12 mg-0.015 mg/24 hr vaginal insert 1 vaginal ring by vaginal route every week continuo usly 08/13 completed Prescrib ed Elsewher e: No Locat ion: [facility] odify By: leslye Miranda ter DateTime : 06/28/19 19 08:45:00 AM Not Available Not Available Not Available Zithromax 500 mg tablet take 2 tablet by oral route once 06/03 completed Prescrib ed Elsewher e: No Locat ion: [facility] odify By: raymond zunigaunter DateTime : 01/24/20 [...] Elsewher e: No Locat ion: [facility] odify By: raymond zunigaunter DateTime : 03/19/20 18 01:30:00 PM Not Available Not Available Not Available nitrofura ntoin monohydra te/macroc rystals 100 mg capsule 10/06 completed Not Available Not Available Not Available Nexplanon 68 mg subdermal implant 10/31 completed Prescrib ed Elsewher e: Yes Loca tion: [facility] odify By: brittni blake DateTime : 10/28/19 14 10:00:00 AM Not Available Not Available Not Available TOUR AGENT-PNV-DH A 28 mg iron-1 mg-200 mg capsule take 1 capsule by oral route every day 06/03 completed Prescrib ed Elsewher e: No Locat ion: [facility] odify By: amkuhnelli Nessa ncounter DateTime : 05/02/20 17 10:49:43 AM Not Available Not Available Not Available 19 29 mg iron-1 mg chewable tablet chew 1 tablet by oral route every day 10/23 completed Prescrib ed Elsewher e: No [facility] By: amkuhnelli Szymanski ncounter DateTime [...] Updated DateTime 10/06/2020 170.18 cm 36.2 kg/m2 073684.8 4 g 123 mm[Hg] 88 mm[Hg] [facility] 14:41:29 Social History Question Answer Notes LastModified by Organizat ion Details LastModified Time Tobacco Smoking Status Never Smoker [facility] 10/06/2020 14:43:05 What Is Your Level [...] 13:39:26 Notes:Sister: Asthma Medical History Condition Response Other N Blood Transfusion N Dermatologic Disorders N Gestational Diabetes N Anxiety Disorder N Autoimmune disease N Arthritis N Polyps N Infertility N Acid Reflux (GERD) N Cancer N Varicosities N Stroke N Neurologic/Epilepsy N Fibromyalgia N Headaches N Kidney Disease N Heart Problems N Kidney or Bladder Problems N Eating Disorder N Art (IVF or FET) N Hepatitis/Liver Disease N No Past Medical History N Urinary Tract Infection N Asthma N Trauma/Violence N Thrombophilias N Allergies (Food, seasonal, environmental ) N Breast Cancer N Drug/Latex Allergies/Reactions N Lung Disease N Defects or Inherited Disease N Breast Problem N Hematologic disorders N Anesthesia Complications N History of STI Y Deep Vein Thrombosis N Polycystic ovary syndrome N History of abnormal pap N Endometriosis N High Cholesterol N Thyroid Problems N GI Problems N Anemia N Psychiatric Illness N Ovarian Cancer N Diabetes N Pulmonary (TB, Asthma) N Eczema N Abuse/Domestic Violence N Depression/ depression N Heart Disease N Pre-Eclampsia N Hypertension N Osteoporosis N Gynecological History Statement/Question Response Date of Last Pap Smear 12/31/2018 Current Control Method Tubal Ligat ion Obstetrics History GPAL:G 2 P 2 0 0 2 Type Value Full Term 2 Living 2 Total 2 Past Encounters Encounter ID Performer Location Encounter Start Date Encounter Closed Date Diagnosis/Indication Diagnosis SNOMED-CT Code Diagnosis ICD10 Code Diagnosis Note [id number] Rosi Henriquez MD [place] [address] [address] 10/06/2020 14:27:10 10/06/2020 15:48:34 Menometrorrhagia 249787462 N92.1 Body mass index 30+ - obesity 332507244 Z68.36 Health Concerns Section Related Observation LastModified by Organization Detai ls LastModified Time None Recorded Concern Status LastModified by Organization Details LastModified Time None Recorded Advance Directives Directive None Recorded Payers Encounter Date Sequence Insurance Name Policy Number Policy Lawrence Covered Member ID Lawrence Member ID Guarantor Name 10/06/2020 1 [employer] [place] (MEDICAID HMO) [id number] Sandra [employer] [place] [id number] Sandra Perdomo Notes Date Note Type Note Provider Name [...] 12/2018 Rosi Henriquez MD [address], [place], [address], [facility] 10/06/2020 15:44:42 OBGyn Episode Ob Episode Information Episode Created Date Number of Fetuses Patient Bloodtype Patient rh Status Prepregnancy Weight lbs Domestic Partner Domestic Partner Phone Father Name Home Sales Consultant Status 10/07/19 21 1 CLOSED Fetus Data [...] Domestic Partner Domestic Partner Phone Father Name Home Sales Consultant Status 10/07/19 21 1 CLOSED Fetus Data [...]
--- OUTSIDE RECORDS SUMMARY | 2024-09-22 17:37 | XMS_ITS ---
Author Organization [facility] Address [address] [place] [address] Care Team Providers Care Women'S Basketball Coach Name Role Phone Xochitl Francisco Primary Care Provider REASON FOR VISIT refills Encounters Encounter Location Date Provider Diagnosis [facility] [address] [place] [address] 09/18/2024 Xochitl Francisco Plan Of Treatment Next Appt Details Provider Name:Xochitl peters, 10/01/2024 10:00:00 AM, [address], [place], [address], Progress Notes * Sandra DIAZDOB: 6 (29 yo F)Acc No.[id number]:09/18/2024 Patient: Sandra MARINELLI :1995 A ge:29 Y S ex:Female Address:[facility] [place], [address] * true * Date: Generated for Printi ng/Faxing/eTransmitting on: 0 09/22/2024 05:37 PM CDT
--- OUTSIDE RECORDS SUMMARY | 2024-09-22 17:37 | XMS_ITS | Clinical Summary ---
Author Organization [facility] Address [address] [place] [address] Care Team Providers Care Meat Inspector Name Role Phone No, Physician Primary Care Provider [phone] Allergies Active Allergy Reactions Criticality Noted Date Comments Measles, Mumps, Rubella,And Varicella Live Vaccine Anaphylaxis High 12/04/2019 Medications valACYclovir (VALTREX) 500 mg tablet TAKE 2 TABLETS BY MOUTH EVERY DAY FOR 5 DAYS Active naproxen (NAPROSYN) 500 mg tabletIndications :Sprain of anterior talofibular ligament of right ankle, initial encounter Take 1 tablet (500 mg total) by mouth 2 (two) times a day as needed for pain (pain) P.r.n. pain and swelling. Collaborating physician Mike Capps MD 20 tablet 024 Active traMADoL (ULTRAM) 50 mg tabletIndications :Sprain of anterior talofibular ligament of right ankle, initial encounter Take 1 tablet (50 mg total) by mouth every 6 (six) hours P.r.n. pain not relieved by naproxen alone. Take with food. Collaborating physician Mike Capps MD 15 tablet 024 Active rizatriptan (MAXALT) 10 mg tabletIndications :Migraine Take 1 tablet (10 mg total) by mouth once as needed for migraine May repeat in 2 hours if unresolved. Do not exceed 30 mg in 24 hours. 9 tablet 024 2024 Active ondansetron ODT (ZOFRAN-ODT) 4 mg disintegrating tablet Take 1 tablet (4 mg total) by mouth every 8 (eight) hours as needed for nausea 20 tablet 025 Active ibuprofen (ADVIL,MOTRIN) 600 mg tablet Take 1 tablet (600 mg total) by mouth 3 (three) times a day 30 tablet 025 Active amoxicillin-clavu lanate (AUGMENTIN) 875-125 mg per tablet Take 1 tablet by mouth 2 (two) times a day for 7 days 14 tablet 025 2024 Active ondansetron ODT (ZOFRAN-ODT) 4 mg disintegrating tablet Take 1 tablet (4 mg total) by mouth every 8 (eight) hours as needed for nausea or vomiting 20 tablet 024 2024 Discontinued loperamide (IMODIUM A-D) 2 mg tablet Take 1 tablet (2 mg total) by mouth 4 (four) times a day as needed for diarrhea for up to 10 days 30 tablet 025 2024 benzonatate (TESSALON) 200 mg capsule Take 1 capsule (200 mg total) by mouth 3 (three) times a day as needed for cough for up to 7 days 20 capsule 025 2024 Active Problems Problem Noted Date Diagnosed Date Sprain of anterior talofibular ligament of right ankle 06/03/2024 Calcaneal spur of foot, right 06/03/2024 Inflamed epidermoid cyst of skin 10/26/2021 Overview (10/26/2021): Added automatically from request for surgery [id number] Borderline personality disorder 12/04/2019 Resolved Problems Problem Noted Date Diagnosed Date Resolved Date Acute bilateral otitis media 01/25/2019 12/03/2019 Acute pharyngitis 01/25/2019 12/03/2019 Strep throat exposure 01/25/20192019 Encounters Date Type Department Care Team Description 09/16/2024 5:30 AM CDT E-Visit [facility] Virtual Care [address] [place] [phone] Beth Thibodeaux NP Your Medications 09/16/2024 Patient Self-Triage [facility] Health[facility]/ Physicians [address] [place] [phone] Mychart, Generic Provider 09/07/2024 5:50 AM CDT E-Visit [address] [phone] Annette Quintero, HYDRO ELECTRIC STATION OPERATOR Work Note 09/07/2024 Patient Self-Triage [facility]/ Physicians [address] [place] [phone] Mychart, Generic Provider 08/28/2024 6:15 AM FRAME EXPANDER E-Visit [address] [phone] Annette Quintero, HYDRO ELECTRIC STATION OPERATOR Virtual Care Visit 08/28/2024 Patient Self-Triage [facility]/ Physicians [address] [place] [phone] Mychart, Generic Provider 08/27/2024 7:45 AM FRAME EXPANDER E-Visit [address] [address] Nati Sim, CURLY Your Medications 08/27/2024 Patient Self-Triage [facility]/ Physicians [address] [place] [phone] Mychart, Generic Provider from Last 3 Months [...] on file Legal Sex Female 9:16 AM FRAME EXPANDER Gender Identity Not on file Sexual Orientation [...] Comments Blood Pressure 121/73 06/03/2024 11:29 AM FRAME EXPANDER Pulse 80 06/03/2024 11:29 AM FRAME EXPANDER Temperature 36.5 C (97.7 F) 06/03/2024 9:01 AM FRAME EXPANDER Respiratory Rate 18 06/03/2024 11:29 AM FRAME EXPANDER Oxygen Saturation 98% 06/03/2024 11:29 AM FRAME EXPANDER Inhaled Oxygen Concentration - - Weight 103.4 kg (228 lb) 06/03/2024 9:01 AM FRAME EXPANDER Height 170.2 cm (5' 7 ) 06/03/2024 9:01 AM FRAME EXPANDER Body Mass Index 35.71 06/03/2024 9:01 AM FRAME EXPANDER Plan of Treatment Health Maintenance Due Date Last Done Comments Cervical Cancer Screening 1995 Hepatitis C Screening 1995 Varicella Vaccines (1 of 2 - 13+ 2-dose series) 02/26/2009 Regular Well Visit/Exam 18-64 02/26/2014 Pneumococcal vaccine <65 (1 of 2 - PCV) 02/26/2015 DTaP/Tdap/Td Vaccine (7 - Td or Tdap) 04/03/2017 04/03/2007, 12/20/2001, 09/01/1997, Additional history exists Depression Screening 12/02/2020 12/03/2019, 12/03/19 20 Covid-19 Vaccine (3 - 2023-2 5 season) 2024 07/05/2021, 05/25/2021 Influenza Vaccine (#1) 2024 , 04/24/2016, 06/04/2013, Additional history exists Hepatitis B Screening Completed 1995 , 1995, 1995 HPV Vaccines Completed 12/31/2007, 05/25, 04/03/[address] [place] [place] [address] Member Subscriber Plan / Payer (Ef fective 2019-Present) Name:Sandra Perdomo Relation to Subscriber:Self Name:Sandra Perdomo Payer ID:[id number] (NAIC) Type:MEDICAID RISK OTHER Address: [address] [place] [address] [facility] Advance Directives For more information, please contact: [phone] * Full Code (Latest Code Status on File) Date Activated Date Inactivated Comments 12/04/2019 4:26 AM 12/04/2019 7:44 PM Care Teams Meat Inspector Relationship Specialty Start Date End Date No, Physician PCP - General 07/15/19
--- OUTSIDE RECORDS SUMMARY | 2024-09-22 17:37 | XMS_ITS | Clinical Summary ---
Author Organization [facility] Address [address] [place] [address] Phone Care Team Providers Care Medical Insurance Clerk Name Role Phone Gisel Reynolds APRN, AIR PRESS OPERATOR Primary Care Provider [phone] Allergies Active Allergy Reactions Criticality Noted Date Comments Lamotrigine Rash 11/21/2023 Measles And Rubella Virus Vaccine Anaphylaxis 0 03/05/2016 Medications Topiramate (TOPAMAX) 50 MG Tablet Take 50 mg by mouth 2 times daily. Active famotidine (PEPCID) 20 MG Tablet Take 1 Tablet by mouth 2 times daily. 60 Tablet 1 Active ibuprofen (MOTRIN) 600 MG Tablet Take 1 Tablet by mouth every 8 hours. 20 Tablet 2 Active naproxen (NAPROSYN) 500 MG Tablet Take 1 Tablet by mouth 2 times daily as needed for Moderate or more severe pain. 20 Tablet 3 Active amphetamine-dex troamphetamine (ADDERALL XR) 20 MG CAPSULE SR 24 HR Take 20 mg by mouth every morning. 5 Active amphetamine-dex troamphetamine (ADDERALL) 10 MG Tablet Take 10 mg by mouth daily. 5 Active ondansetron (ZOFRAN-ODT) 4 MG TABLET DISPERSIBLE Take 4 mg by mouth every 8 hours as needed. 5 Active valACYclovir (VALTREX) 500 MG Tablet Take 500 mg by mouth 2 times daily. 2 Active topiramate (TOPAMAX) 25 MG Tablet Take 25 mg by mouth daily. 5 Active Mirtazapine (REMERON) 7.5 MG Tablet Take 7.5 mg by mouth nightly. 5 Active tretinoin (RETIN-A) 0.01 % Gel Apply every evening. Apply to affected areas as directed. 15 g 3 5 Active citalopram (CELEXA) 20 MG Tablet Take 20 mg by mouth daily. 09/19/19 Discontinue d(Discontin ued by another clinician) Meloxicam 15 MG Tablet Take 1 Tab by mouth daily. 10 Tab 8 09/19/19 Discontinue d(Therapy completed) ALBUTEROL SULFATE IN take by inhalation. 09/19/19 Discontinue d(Therapy completed) ARIPiprazole (ABILIFY) 5 MG Tablet Take 5 mg by mouth daily. 09/19/19 Discontinue d(Discontin ued by another clinician) buPROPion (WELLBUTRIN) 150 MG XL tablet Take 150 mg by mouth every morning. 09/19/19 25 Discontinue d(Discontin ued by another clinician) ergocalciferol (VITAMIN D) 38438 UNIT Capsule Take 50,000 Units by mouth. 09/19/19 Discontinue d(Therapy completed) escitalopram (LEXAPRO) 20 MG Tablet Take 20 mg by mouth daily. 09/19/19 Discontinue d(Discontin ued by another clinician) lithium (LITHOBID) 300 MG Tablet Controlled Release Take 300 mg by mouth 2 times daily. 09/19/19 Discontinue d(Discontin ued by another clinician) traZODone (DESYREL) 50 MG Tablet Take 50 mg by mouth nightly. 09/19/19 Discontinue d(Discontin ued by another clinician) naproxen (NAPROSYN) 500 MG Tablet Take 1 Tablet by mouth 2 times daily as needed for Mild or more severe pain. 20 Tablet 2 09/19/19 Discontinue d(Duplicate Order) cyclobenzaprine (FLEXERIL) 5 MG Tablet Take 1 Tablet by mouth 3 times daily as needed for Muscle spasms. 15 Tablet 3 09/19/19 25 Discontinue d(Discontin ued by another clinician) traMADol (ULTRAM) 50 MG TabletIndicatio ns:Urinary tract infection Take 1 Tablet by mouth every 6 hours as needed for Moderate or more severe pain. 15 Tablet 4 09/19/19 25 Discontinue d(Discontin ued by another clinician) Active Problems Problem Noted Date Diagnosed Date Calcaneal spur of foot, right 06/03/2024 Inflamed epidermoid cyst of skin 10/26/2021 Overview (09/18/2024): Added automatically from request for surgery [id number] Borderline personality disorder 12/04/2019 Obesity with body mass index 30 or greater 12/31 Overview (09/18/2024): Body mass index (BMI) 34.0-34.9, adult;Recorded Elsewhere: No Location: [facility] Source: EHR Chronic: N Practice ID: [id number] Billable Time: 02:00:00 PM Herpetic vulvovaginitis 12/04/2018 Overview (09/18/2024): Herpesviral vulvovaginitis;Recorded Elsewhere: No Location: [facility] Source: EHR Chronic: N Practice ID: [id number] Billable Time: 10:15:00 AM Sexually transmitted infection 11/26/2018 Overview (09/18/2024): STD;Recorded Elsewhere: No Location: [facility] Source: EHR Chronic: N Practice ID: [id number] Billable Time: 08:30:00 AM Acute vaginitis 11/26/2018 Overview (09/18/2024): Vaginitis;Recorded Elsewhere: No Location: [facility] Source: EHR Chronic: N Practice ID: [id number] Billable Time: 08:30:00 AM Dizziness and giddiness 10/08/2017 Overview (09/18/2024): Dizziness and giddiness;Practice ID: 0001 Backache 07/23/2017 Overview (09/18/2024): Back pain;Recorded Elsewhere: No Location: [facility] Source: EHR Chronic: N Practice ID: [id number] Billable Time: 09:30:00 AM Encounters Date Type Department Care Team Description 09/18/2024 2:15 PM CDT Office Visit [facility] - Primary [facility] - [place] [address] [place] [address] Gisel Reynolds, ORTHOPEDIC RN, AIR PRESS OPERATOR Encounter for immunization (Primary Dx); Screening for cervical cancer; Acne vulgaris Discharge Disposition: Discharged to home or Selfcare 09/17/2024 Travel from Last 3 Months Immunizations Immunization Administration Dates Next Due DTP Vaccine 12/20/2001, 8,1996,07/11,1996 Hepatitis A Vaccine, Pediatric/adolescent, 2 Dose Schedule 04/06/2008,04/03/2007 Hepatitis B Vaccine, Pediatric/adolescent 1996,1996,1996 Hib Vaccine,unspecified Formulation 08/23,1996,1996,04/28 Human Papillomavirus Vaccine (HPV), quadrivalent 12/31/2007,06/05/2007,04/03/2007 Inactivated Polio Vaccine 12/20/2001,,1996,04/28 Influenza Vaccine, MDCK,quad rivalent, pres free 04/16/2023,05/01/2022,05/25/2021 Influenza Vaccine, Quadrivalent, PF 06/04/2013 Influenza Vaccine,unspecifie d Formulation 04/05/2010 Influenza Virus Vaccine, Whole Virus 04/03/2007 Influenza, Injectable, Quadrivalent 04/24/2016 Influenza,Split Virus,Trivalent,Injectable,PF 09/18/2024,03/30/2011 MMR Vaccine 03/12/1997 Meningococcal Vaccine 04/03/2007 TDAP Vaccine 11/02/2017,04/03/2007 Tetanus Toxoid, Unspecified Formulation 06/25/2009 Family History Medical History Relation Name Comments Attention Deficit Hyperactivity Disorder Brother Depression Mother Migraines Mother Relation Name Status Comments Brother Father Unknown Mother Alive Social History Tobacco Use Types Packs/Day Years Used Date Smoking Tobacco: Former Cigarettes Q uit: 10/24/2019 Smokeless Tobacco: Never Tobacco Cessation:Counseling Given: Not Answered Alcohol Use Standard Drinks/Week Comments Not Currently 0 (1 standard drink = 0.6 oz pur e alcohol) [facility] Utilities Answer Date Recorded In the past 12 months has th e electric, gas, oil, or water company threatened to shut off services in your home? No 09/17/2024 Social Connection and Isolat ion Panel [NHANES] Answer Date Recorded In a typical week, how many times do you talk on the phone with family, friends, or neighbors? More than three times a week 09/17/2024 How often do you get togethe r with friends or relatives? More than three times a week 09/17/2024 How often do you attend chur ch or latter-day services? Patient declined 09/17/2024 Do you belong to any clubs o r organizations such as moravian groups, unions, fraternal or athletic groups, or school groups? Patient declined 09/17/2024 How often do you attend meet ings of the clubs or organizations you belong to? Patient declined 09/17/2024 Are you , , di vorced, , never , or living with a partner? 09/17/2024 AUDIT-C Answer Date Recorded Q1: How often do you have a drink containing alcohol? Never 09/17/2024 Q2: How many drinks containi ng alcohol do you have on a typical day when you are drinking? Patient does not drink Q3: How often do you have si x or more drinks on one occasion? Never 09/17/2024 Overall Financial Resource Strain (CARDIA) Answe r Date Recorded How hard is it for you to pa y for the very basics like food, housing, medical care, and heating? Not very hard 09/17/2024 PHQ-2 Answer Date Recorded Total Score - Questions 1-9 0 08/24 [facility] of Occupat ional Health - Occupational Stress Questionnaire Answer Date Recorded Do you feel stress - tense, restless, nervous, or anxious, or unable to sleep at night because your mind is troubled all the time - these days? To some extent 09/17/2024 Exercise Vital Sign Answer Date Recorde d On average, how many days pe r week do you engage in moderate to strenuous exercise (like a brisk walk)? 5 days 09/17/2024 On average, how many minutes do you engage in exercise at this level? 150+ min 09/17/2024 Hunger Vital Sign Answer Date Recorded Within the past 12 months, y ou worried that your food would run out before you got the money to buy more. Patient declined Within the past 12 months, t he food you bought just didn't last and you didn't have money to get more. Patient declined PRAPARE - Transportation Answer Date Re corded In the past 12 months, has l ack of transportation kept you from medical appointments or from getting medications? No 08/24 In the past 12 months, has l ack of transportation kept you from meetings, work, or from getting things needed for daily living? No 09/17/2024 Housing Stability Vital Sign Answer Jonas e Recorded In the last 12 months, was t here a time when you were not able to pay the mortgage or rent on time? No 09/17/2024 Number of Times Moved in the Last Year Not on fi le 09/17/2024 At any time in the past [address] [facility], were you homeless or living in a alf (including now)? No 09/17/2024 Sexually Active Control Partners Comments Yes Male Condom Male Comments No Sex and Gender Information Value Date Recorded Sex Assigned at Not on file Legal Sex Female 9:51 PM CDT Gender Identity Not on file Sexual Orientation Not on file Last Filed Vital Signs Vital Sign Reading Time Taken Comments Blood Pressure 120/80 09/18/2024 2:18 PM CDT Pulse 81 09/18/2024 2:18 PM CDT Temperature 37 C (98.6 F) 09/18/2024 2:18 PM CDT Respiratory Rate 18 09/18/2024 2:18 PM CDT Oxygen Saturation 98% 09/18/2024 2:18 PM CDT Inhaled Oxygen Concentration - - Weight 103 kg (227 lb) 09/18/2024 2:18 PM CDT Height 171.5 cm (5' 7.5 ) 09/18/2024 2:18 PM CDT Body Mass Index 35.03 09/18/2024 2:18 PM CDT Plan of Treatment Health Maintenance Due Date Last Done Comments Hepatitis C Virus (HCV) Screening 1995 SARS-COV-2 Immunization ( season) 2024 05/01/2022, 12/02/2021, 07/05/2021, Additional history exists Pap Smear 09/18/2025 Postponed from 02/26/2017 (Patient Temporarily Declines) DTaP/Tdap/Td Immunization (8 - Td or Tdap) 11/03/2027 11/02/2017, 04/03/2007, 12/20/2001, Additional history exists Respiratory Syncytial Virus (RSV) Immunization (Adult) (1 - 1-dose 75+ series) 02/26/2071 Hepatitis B Immunization Completed 997, 1996, 1996 Meningococcal Immunization (ACWY) Aged Out 04/03/2007 No longer eligible based on patient's age to complete this topic Human Papillomavirus (HPV) Immunization Discontinued 12/31/2007, 06/05/2007, 04/03/2007 TdaP Immunization Discontinued 11/02/2017, 04/03/2007 Influenza Immunization Completed , 04/16/2023, 05/01/2022, Additional history exists Pneumococcal Immunization Combined Aged Out No longer eligible based on patient's age to complete this topic Rotavirus Immunization Aged Out No lo nger eligible based on patient's age to complete this topic Insurance [place] on file Care Teams Medical Insurance Clerk Relationship Specialty Start Date End Date Gisel Reynolds, ORTHOPEDIC RN, AIR PRESS OPERATOR [address] [place] [address] PCP - General Certified Nurse Practitioner 09/18/24
--- OUTSIDE RECORDS SUMMARY | 2024-09-22 17:37 | XMS_ITS | Referral Summary ---
Author Organization [facility] Address [address] [place] [address] Care Team Providers Care Compliance Advisor Name Role Phone No, Physician Primary Care Provider [phone] Encounters Date Type Department Care Team Description 09/16/2024 5:30 AM CDT E-Visit [facility] Medical [facility] Care [address] [place] [phone] Beth Thibodeaux, CURLY Your Medications 09/16/2024 Patient Self-Triage [facility] HealthCare/ Physicians [address] [place] [phone] Mychart, Generic Provider 09/07/2024 5:50 AM CDT E-Visit [facility] Medical [facility] Care [address] [place] [phone] Annette Quintero, AGRICULTURAL ECONOMICS PROFESSOR Work Note 09/07/2024 Patient Self-Triage [facility] [address] [place] [phone] Mychart, Generic Provider 08/28/2024 6:15 AM MIXING PLANT DUMPER E-Visit [facility] Medical [facility] Care [address] [place] [phone] Annette Quintero, AGRICULTURAL ECONOMICS PROFESSOR Virtual Care Visit 08/28/2024 Patient Self-Triage [facility] [address] [place] [phone] Mychart, Generic Provider 08/27/2024 7:45 AM MIXING PLANT DUMPER E-Visit [facility] Medical [facility] Care [address] [place] [phone] Nati Sim NP Your Medications 08/27/2024 Patient Self-Triage [facility] HealthCare/ Physicians [facility] [place] [address] Mycbenjiet, Generic Provider from Last 3 Months Allergies Active Allergy Reactions Criticality Noted Date Comments Measles, Mumps, Rubella,And Varicella Live Vaccine Anaphylaxis High 12/04/2019 Medications valACYclovir (VALTREX) 500 mg tablet TAKE 2 TABLETS BY MOUTH EVERY DAY FOR 5 DAYS 022 Active naproxen (NAPROSYN) 500 mg tabletIndications :Sprain [...] (10/26/2021): Added automatically from request for surgery [id number] Borderline personality disorder 12/04/2019 Resolved Problems Problem [...] on file Legal Sex Female 9:16 AM MIXING PLANT DUMPER Gender Identity Not on file Sexual Orientation Not on file Last Filed Vital Signs Vital Sign Reading Time Taken Comments Blood Pressure 121/73 06/03/2024 11:29 AM MIXING PLANT DUMPER Pulse 80 06/03/2024 11:29 AM MIXING PLANT DUMPER Temperature 36.5 C (97.7 F) 06/03/2024 9:01 AM MIXING PLANT DUMPER Respiratory Rate 18 06/03/2024 11:29 AM MIXING PLANT DUMPER Oxygen Saturation 98% 06/03/2024 11:29 AM MIXING PLANT DUMPER Inhaled Oxygen Concentration - - Weight 103.4 kg (228 lb) 06/03/2024 9:01 AM MIXING PLANT DUMPER Height 170.2 cm (5' 7 ) 06/03/2024 9:01 AM MIXING PLANT DUMPER Body Mass Index 35.71 06/03/2024 9:01 AM MIXING PLANT DUMPER Plan of Treatment Not on file Insurance [employer] Advance Directives For more information, please contact: [phone] * Full Code (Latest Code Status on File) Date Activated Date Inactivated Comments 12/04/2019 4:26 AM 12/04/2019 7:44 PM Care Teams Compliance Advisor Relationship Specialty Start Date End Date No, Physician PCP - General 07/15/19
--- OUTSIDE RECORDS SUMMARY | 2024-09-22 17:37 | XMS_ITS ---
Author Organization [facility] Address [address] [place] [address] Care Team Providers Care Wearing Apparel Shaker Name Role Phone Xochitl Francisco Primary Care Provider [phone] REASON FOR VISIT Other Encounters Encounter Location Date Provider Diagnosis [facility] [address] [place] [address] 09/01/2024 Xochitl Francisco Plan Of Treatment Next Appt Details Provider Name:Xochitl peters, 10/01/2024 10:00:00 AM, [address] [place], [address], Progress Notes * Sandra DIAZDOB: [birth year] (29 yo F)Acc No.[id number]:09/01/2024 Patient: Sandra MARINELLI :1995 A ge:29 Y S ex:Female Address:[place], [address] * true * Date: Generated for Printi ng/Faxing/eTransmitting on: 0 09/22/2024 05:37 PM CDT
--- OUTSIDE RECORDS SUMMARY | 2024-09-22 17:38 | XMS_ITS | Patient Health Record ---
Author Organization [facility] Address [address] [place] [address] Care Team Providers Care Cfd Engineer Name Role Phone Xochitl Francisco Primary Care Provider Tess Morrissey Unavailable [phone] Won Abrams Unavailable [phone] Allergies Allergen (clinical drug ingredient) Drug/Non Drug [...] Date End Date Status Topiramate 50 MG TAKE 1 TABLET BY CHRIS DAILY for 8 days Active QUEtiapine Fumarate 50 MG 1 tablet at be dtime Orally Once a day for 8 days Not-Taking Amphetamine-Dextroamphet ER 20 MG 1 capsule in the morning Orally Once a day for 30 days 08/19/2024 Active Topiramate 25 MG 1 tablet Orally Once a day for 8 days Active Amphetamine-Dextroampheta mine 10 MG 1 tablet Orally Once a day in the afternoon. for 30 days 08/19/2024 Active Topiramate 25 MG 1 tablet Orally Once a day for 30 days Active Topiramate 50 MG 1 tablet Orally Once a day for 30 days Active Mirtazapine 7.5 MG 1 tablet at bedtime Orally Once a day for 30 days 08/19/2024 Active Social History Tobacco Use: Social History Observation Description Date Details (start date - stop date) Never Smoker NA - NA Tobacco Control (Standard) Question Answer Notes Tobacco use: Nonsmoker Problems Problem Type SNOMED Code ICD Code Onset Dates Problem Status W/U Status Risk Notes Problem Generalized anxiety disorder (60708954) Generalized anxiety disorder (F41.1) Active confirmed Problem Attention deficit hyperactivity disorder (048192450) ADHD (attention deficit hyperactivity disorder) (F90.9) Active confirmed Problem Bipolar affective disorder (76465829) Bipolar affective disorder (F31.9) Active confirmed Problem Sleep disturbance (96962121) Sleep disturbance, unspecified (G47.9) Active confirmed Vital Signs Heart Rate 81 /min 07/15/2024 Respiratory Rate 16 /min 07/15/2024 Blood pressure diastolic 82 mm Hg 07/15/2024 Oximetry 98 % 07/15/2024 Height 67.5 in 07/15/2024 Blood pressure systolic 126 mm Hg 07/15/2024 Weight 226 lbs 07/15/2024 BMI 34.87 kg/m2 07/15/2024 Encounters Encounter Location Date Provider Diagnosis [address] [address] 10/29/2023 Xochitl Francisco Bipolar affective disorder F31.9 ; Generalized anxiety disorder F41.1 ; Sleep disturbance, unspecified G47.9 and History of benzodiazepine use Z87.898 [address] [place] [address] [facility] [place] [address] 11/20/2023 Xochitl Francisco Generalized anxiety disorder F41.1 ; Bipolar affective disorder F31.9 ; Sleep disturbance, unspecified G47.9 and History of benzodiazepine use Z87.[address] [place] [address] 11/29/2023 Xochitl Francisco Generalized anxiety disorder F41.1 ; Bipolar affective disorder F31.9 ; Sleep disturbance, unspecified G47.9 and History of benzodiazepine use Z87.[address] [address] 12/11/2023 Won Abrams Bipolar affective disorder F31.9 ; Generalized anxiety disorder F41.1 and ADHD (attention deficit hyperactivity disorder) F90.[address] [address] 01/02/2024 Won Abrams ADHD (attention deficit hyperactivity disorder) F90.9 ; Bipolar affective disorder F31.9 ; Generalized anxiety disorder F41.1 and Sleep disturbance, unspecified G47.[address] [address] 02/18/2024 Won Abrams Bipolar affective disorder F31.9 ; Generalized anxiety disorder F41.1 ; Sleep disturbance, unspecified G47.9 and ADHD (attention deficit hyperactivity disorder) F90.9 [address] [address] [place] [address] 07/15/2024 Xochitl Francisco Nutritional counseli ng Z71.3 ; Bipolar affective disorder F31.9 ; Generalized anxiety disorder F41.1 ; Sleep disturbance, unspecified G47.9 and ADHD (attention deficit hyperactivity disorder) F90.9 [address] [address] [place] [address] 08/19/2024 Xochitl Francisco Nutritional counseli ng Z71.3 ; Bipolar affective disorder F31.9 ; Generalized anxiety disorder F41.1 ; Sleep disturbance, unspecified G47.9 and ADHD (attention deficit hyperactivity disorder) F90.[address] [address] 11/15/2023 Xochitl Francisco [address] [address] 01/31/2024 Tess Morrissey ADHD (attention deficit hyperactivity disorder) F90.9 and Bipolar affective disorder F31.[address] [place] [address] 02/18/2024 Won Abrams [address] [place] [address] 02/20/2024 Won Abrams [address] [address] 03/19/2024 Xochitl Francisco Bipolar affective disorder F31.9 and ADHD (attention deficit hyperactivity disorder) F90.[address] [address] 04/07/2024 Xochitl Francisco Bipolar affective disorder F31.9 [facility] [address] [place] [address] 05/06/2024 Xochitljanel GarciaNolan [address] [address] 07/16/2024 Xohcitl Francisco [facility] [address] [place] [address] 08/11/2024 Xochitl Francisco ADHD (attention deficit hyperactivity disorder) F90.9 and Bipolar affective disorder F31.[address] [address] 08/22/2024 Xochitl Francisco [address] [address] 09/01/2024 Xochitl Francisco [address] [address] 09/18/2024 Xochitl Francisco [address] [address] 04/20/[address] [address] 04/21/2024 Xochitl Francisco ADHD (attention deficit hyperactivity disorder) F90.9 and Bipolar affective disorder F31.[address] [address] 04/28/20[address] [address] 05/01/2024 Xochitl Francisco Assessments Encounter Date Diagnosis (ICD Code) Assessment Notes Treatment Notes Treatment Clinical Notes Section Notes 10/29/2023 Generalized anxiety disorder (ICD-10 - F41.1) Discussed r/b/se. Hx of struggling with BZD use, has also tried hydroxyzine, buspar- not good candidate for propranolol with asthma 10/29/2023 Bipolar affective disorder (ICD-10 - F31.9) Hx of some improvement with mood stabilization at 75 mg but continued depression, restarting and increasing to 100mg. 11/20/2023 Generalized anxiety disorder (ICD-10 - F41.1) Discussed r/b/se. Hx of struggling with BZD use, has also tried hydroxyzine, buspar- not good candidate for propranolol with asthma 11/29/2023 Generalized anxiety disorder (ICD-10 - F41.1) Discussed r/b/se. Hx of struggling with BZD use, has also tried hydroxyzine, buspar- not good candidate for propranolol with asthma 12/11/2023 Bipolar affective disorder (ICD-10 - F31.9) Client reports stabilized mood after increase of Seroquel at last visit with her usual provider. States that she and her provider had discussed starting Adderall to treat underlying ADHD as she is in [employer] and starting to do poorly due [...] (attention deficit hyperactivity disorder) (ICD-10 - F90.9) 01/02/2024 ADHD (attention deficit hyperactivity disorder) (ICD-10 - F90.9) Client interested in possibility switching to Strattera as a chute man solution once done with [employer] school. Client having dwindling efficacy of stimulant in afternoon. Agreeable to afternoon booster. No other treatment plan changes at this time. 01/02/2024 Bipolar affective disorder (ICD-10 - F31.9) Client interested in possibility switching to Strattera as a chcf solution once done with [employer] school. Client having dwindling efficacy of stimulant in afternoon. Agreeable to afternoon booster. No other treatment plan changes at this time. 02/18/2024 Bipolar affective disorder (ICD-10 - F31.9) [...] F90.9) 07/15/2024 Nutritional counseling (ICD-10 - Z71.3) 08/11/2024 ADHD (attention deficit hyperactivity disorder) (ICD-10 - F90.9) 08/19/2024 Nutritional counseling (ICD-10 - Z71.3) 03/19/2024 ADHD (attention deficit hyperactivity disorder) (ICD-10 - F90.9) 07/15/2024 Bipolar affective disorder (ICD-10 - F31.9) Discussed r/b/se. To start extra 25 mg topiramate in 1 week. 08/19/2024 Bipolar affective disorder (ICD-10 - F31.9) Reports doing well with mood with topiramate. 08/11/2024 Bipolar affective disorder (ICD-10 - F31.9) 04/21/2024 Bipolar affective disorder (ICD-10 - F31.9) 01/31/2024 Bipolar affective disorder (ICD-10 - F31.9) 02/18/2024 Generalized anxiety disorder (ICD-10 - F41.1) [...] office visit soon to stay on stimulant. 01/02/2024 Generalized anxiety disorder (ICD-10 - F41.1) Client interested in possibility switching to Strattera as a chute man solution once done with [employer] school. Client having dwindling efficacy of stimulant in afternoon. Agreeable to afternoon booster. No other treatment plan changes at this time. 12/11/2023 Generalized anxiety disorder (ICD-10 - F41.1) Client reports stabilized mood after increase of Seroquel at last visit with her usual provider. States that she and her provider had discussed starting Adderall to treat underlying ADHD as she is in [employer] school and starting to do poorly due [...] for weeks. No other treatment plan changes. 11/29/2023 Bipolar affective disorder (ICD-10 - F31.9) [...] doing well with this medication at 25-50mg. 12/11/2023 ADHD (attention deficit hyperactivity disorder) (ICD-10 - F90.9) Client reports stabilized mood after increase of Seroquel at last visit with her usual provider. States that she and her provider had discussed starting Adderall to treat underlying ADHD as she is in [employer] school and starting to do poorly due [...] office visit soon to stay on stimulant. 01/02/2024 Sleep disturbance, unspecified (ICD-10 - G47.9) Client interested in possibility switching to Strattera as a chute man solution once done with [employer] school. Client having dwindling efficacy of stimulant in afternoon. Agreeable to afternoon booster. No other treatment plan changes at this time. 07/15/2024 Generalized anxiety disorder (ICD-10 - F41.1) Encouraged therapy. 08/19/2024 Generalized anxiety disorder (ICD-10 - F41.1) Encouraged therapy. 02/18/2024 ADHD (attention deficit hyperactivity disorder) (ICD-10 [...] benzodiazepine use (ICD-10 - Z87.898) None since 202108/19/2024 Sleep disturbance, unspecified (ICD-10 - G47.9) Discussed r/b/se. 07/15/2024 Sleep disturbance, unspecified (ICD-10 - G47.9) Continue Seroquel. 08/19/2024 ADHD (attention deficit hyperactivity disorder) (ICD-10 - F90.9) Increasing, discussed to monitor for s/s of herberth/increase anxiety. Discussed controlled sub. PDMP checked without concerns. 07/15/2024 ADHD (attention deficit hyperactivity disorder) (ICD-10 - F90.9) Discussed possible increase- client has been on medications for months at this time- will reassess at next appt. 10/29/2023 Other Reasons, potential benefits, potential risks, [...] May also contact the 24-hour crisis hotline ([facility]), refer to the closest emergency room or [...] May also contact the 24-hour crisis hotline ([facility]), refer to the closest emergency room or [...] of education, treatment plan and follow up. 11/29/2023 Other Client with hx of ADHD and being on Adderall. Currently in school to become [employer]. Discussed possibility of attention medication once mood [...] May also contact the 24-hour crisis hotline ([facility]), refer to the closest emergency room or [...] assess appearance, affect, AIMS, or vital signs. 12/11/2023 [place] [...] number to the 24-hour crisis line at [facility]. Questions addressed. Client verbalized understanding of all information and is agreeable to treatment plan. Client reports stabilized mood after increase of Seroquel at last visit with her usual provider. States that she and her provider had discussed starting Adderall to treat underlying ADHD as she is in [employer] school and starting to do poorly due [...] weeks. No other treatment plan changes. 01/02/2024 [place] [...] number to the 24-hour crisis line at [facility]. Questions addressed. Client verbalized understanding of all information and is agreeable to treatment plan. Client interested in possibility switching to Strattera as a chute man solution once done with [employer] school. Client having dwindling efficacy of stimulant in afternoon. Agreeable to afternoon booster. No other treatment plan changes at this time. 02/18/2024 [place] [...] number to the 24-hour crisis line at [facility]. Questions addressed. Client verbalized understanding of [...] May also contact the 24-hour crisis hotline ([facility]), refer to the closest emergency room or [...] up. This session was completed telephonically with client/parental/gua rdian consent: Unable to determine movement status, assess appearance, affect, AIMS, or vital signs. 08/19/2024 Other Reasons, potential benefits, potential risks, interactions [...] May also contact the 24-hour crisis hotline ([facility]), refer to the closest emergency room or [...] up. This session was completed telephonically with client/parental/gua rdian consent: Unable to determine movement status, assess appearance, affect, AIMS, or vital signs. Plan Of Treatment Next Appt Details Provider Name:Xochitl peters, 10/01/2024 10:00:00 AM, [address] [facility] , [place], [address], Insurance Providers Payer Name Payer Address Payer Phone Subscriber Number Group Number Insured Name Patient Relationship to Insured Coverage Start Date Coverage End Date [employer] [address] [place] [phone] [id number] Sandra Perdomo Self - patient is the insured 4 [employer] [address] [place] [address] [id number] Sandra Perdomo Self - patient is the insured 4 Medical (General) History Medical History History ICD Code Asthma
--- OUTSIDE RECORDS SUMMARY | 2024-09-22 17:38 | XMS_ITS ---
Author Organization [facility] Address [address] [place] [address] Care Team Providers Care Carpet Finishing Supervisor Name Role Phone Xochitl Francisco Primary Care Provider REASON FOR VISIT Refills Encounters Encounter Location Date Provider Diagnosis [facility] [address] [place] [address] 08/22/2024 Xochitl Francisco Plan Of Treatment Next Appt Details Provider Name:Xochitl peters, 10/01/2024 10:00:00 AM, [address], [place], [address], Progress Notes * Sandra DIAZDOB: [birth year] (29 yo F)Acc No.[id number]:08/22/2024 Patient: Sandra MARINELLI :1995 A ge:29 Y S ex:Female Address:[facility] [place], [address] * true * Date: Generated for Printi ng/Faxing/eTransmitting on: 0 09/22/2024 05:37 PM CDT
== END 2024-09-22 17:06 | disposition home or self-care (01) ==
PROVIDERS: Emergency Provider Nurse Practitioner
DX: L25.9 Unspecified contact dermatitis, unspecified cause (principal); Z87.891 Personal history of nicotine dependence; F90.9 Attention-deficit hyperactivity disorder, unspecified type
CPT/HCPCS: 99213; G0463

== ENCOUNTER 2025-06-14 15:17 | Emergency (ER) | payer OTHER, SELFPAY ==
--- OUTSIDE RECORDS SUMMARY | 2025-06-14 15:19 | XMS_ITS | Clinical Summary ---
Author Organization [facility] Address [address] [place] [address] Care Team Providers Care Assistant Grocery Store Manager Name Role Phone Unavailable Primary Care Provider Unavailabl e Source Comments [facility],non-owned Affiliates and Associated Physician Practices is amultiple site organization consisting of ambulatory clinics and hospital sitesin [place], [place], [place] and [place]. This disclosure is being madepursuant to the Care Everywhere program and may not contain all information available regarding this patient. Last updated 18.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 Gender Identity Not on file Sexual Orientation Not on file Plan of Treatment Health Maintenance Due Date Last Done Comments HIV SCREENING 02/26/2011 HEPATITIS C SCREENING 02/22/2014 DTAP/TDAP/TD VACCINES (1 - Tdap) 02/26/2015 HEPATITIS B VACCINE (1 of 3 - 19+ 3-dose series) 02/26/2015 PAP SMEAR 02/26/2017 HPV VACCINE (1 - 3-dose SCDM series) 02/26/2023 DEPRESSION SCREENING 06/25/2024 COVID-19 VACCINE (1 - 2024-2 6 season) 2025 INFLUENZA VACCINE (#1) 2025 ZOSTER VACCINE (1 of 2) 02/26/2046 HIB VACCINE Aged Out No longer eligi ble based on patient's age to complete this topic MENINGOCOCCAL (Group B) VACC INE SHARED DECISION-MAKING Aged Out No longer eligibl e based on patient's age to complete this topic MENINGOCOCCAL GROUPS A/C/Y/W VACCINE Aged Out No longer eligible b ased on patient's age to complete this topic PNEUMOCOCCAL VACCINE Aged Out No long er eligible based on patient's age to complete this topic Insurance [facility]
--- OUTSIDE RECORDS SUMMARY | 2025-06-14 15:19 | XMS_ITS | Clinical Summary ---
Author Organization [facility] Address [address] [place] [address] Phone Care Team Providers Care Segment Block Layer Name Role Phone Gisel Reynolds APRN, HYDRAULIC PRESS TENDER Primary Care Provider [phone] Allergies Active Allergy Reactions Criticality Noted Date Comments Lamotrigine Rash 11/21/2023 Measles And Rubella Virus Vaccine Anaphylaxis 0 03/05/2016 Medications famotidine (PEPCID) 20 MG Tablet Take 1 Tablet by mouth 2 times daily. 60 Tablet 1 Active Additional Information Patient not taking.Reported on 12/12/2024 ibuprofen (MOTRIN) 600 MG Tablet Take 1 Tablet by mouth every 8 hours. 20 Tablet 2 Active Additional Information Patient not taking.Reported on 12/12/2024 naproxen (NAPROSYN) 500 MG Tablet Take 1 Tablet by mouth 2 times daily as needed for Moderate or more severe pain. 20 Tablet 3 Active Additional Information Patient not taking.Reported on 12/12/2024 amphetamine-dext roamphetamine (ADDERALL XR) 20 MG CAPSULE SR 24 HR Take 20 mg by mouth every morning. 5 Active amphetamine-dext roamphetamine (ADDERALL) 10 MG Tablet Take 10 mg by mouth daily. 5 Active valACYclovir (VALTREX) 500 MG Tablet Take 500 mg by mouth 2 times daily. 2 Active topiramate (TOPAMAX) 25 MG Tablet Take 25 mg by mouth daily. 5 Active QUEtiapine Fumarate (SEROquel) 50 MG Tablet Take 50 mg by mouth. 5 Active topiramate (TOPAMAX) 100 MG Tablet Take 100 mg by mouth daily. Active cloNIDine (CATAPRES) 0.1 MG Tablet Take 0.1 mg by mouth daily. PRN Active triamcinolone (KENALOG) 0.1 % Cream Apply. 5 Active SUMAtriptan (IMITREX) 50 MG TabletIndication s:Acute intractable headache, unspecified headache type Take 1 Tablet by mouth once as needed for Migraine for up to 1 dose. Use as directed. May repeat dose in 2 hours if headache recurs. 9 Tablet 1 5 Active tretinoin (RETIN-A) 0.01 % Gel APPLY TOPICALLY TO THE AFFECTED AREA EVERY EVENING DIRECTED 15 g 3 5 Active Active Problems Problem Noted Date Diagnosed Date Intractable migraine with aura without status mi grainosus 12/12/2024 Attention deficit hyperactivity disorder 025 Generalized anxiety disorder 12/12/2024 Overweight 12/12/2024 Sleep disturbance 12/12/2024 Bipolar affective disorder 12/12/2024 Calcaneal spur of foot, right 06/03/2024 Inflamed epidermoid cyst of skin 10/26/2021 Overview (09/18/2024): Added automatically from request for surgery [id number] Borderline personality disorder 12/04/2019 Obesity with body mass index 30 or greater 12/31 Overview (09/18/2024): Body mass index (BMI) 34.0-34.9, adult;Recorded Elsewhere: No Location: [facility] Source: EHR Chronic: N Practice ID: [id number] Billable Time: 02:00:00 PM Herpetic vulvovaginitis 12/04/2018 Overview (09/18/2024): Herpesviral vulvovaginitis;Recorded Elsewhere: No Location: [facility] Source: EHR Chronic: N Practice ID: [id number] Billable Time: 10:15:00 AM Sexually transmitted infection 11/26/2018 Overview (09/18/2024): STD;Recorded Elsewhere: No Location: [facility] Source: EHR Chronic: N Practice ID: [id number] Billable Time: 08:30:00 AM Acute vaginitis 11/26/2018 Overview (09/18/2024): Vaginitis;Recorded Elsewhere: No Location: [facility] Source: EHR Chronic: N Practice ID: [id number] Billable Time: 08:30:00 AM Dizziness 10/08/2017 Overview (09/18/2024): Dizziness and giddiness;Practice ID: [id number] Backache 07/23/2017 Overview (09/18/2024): Back pain;Recorded Elsewhere: No Location: [facility] Source: EHR Chronic: N Practice ID: [id number] Billable Time: 09:30:00 AM Secondary amenorrhea 03/26/2017 Overview (12/12/2024): Secondary amenorrhea;Practice ID: [id number] Uterine size-date discrepancy 03/05/2013 Overview (12/12/2024): UTERINE SIZE VON-ANTEPAR;Recorded Elsewhere: No Location: [facility] Source: EHR Chronic: N Practice ID: [id number] Billable Time: 05:00:00 PM Immunizations Immunization Administration Dates Next Due DTP [...] Name Comments Attention Deficit Hyperactivity Disorder Brother Diabetes Maternal Grandmother Hayde Depression Mother Trisha Migraines Mother Trisha Asthma Sister Zahida Relation Name Status Comments Brother Father Unknown Maternal Grandmother Hayde Alive Mother Trisha Alive Sister Zahida Alive Social History Tobacco Use Types Packs/Day Years Used Date Smoking Tobacco: Former Cigarettes 0 Q uit: 10/24/2019 Smokeless Tobacco: Never Alcohol Use Standard Drinks/Week Comments Not Currently 0 (1 standard drink = 0.6 oz pur e alcohol) [facility] Utilities Answer Date Recorded In the past 12 months has [employer] electric, gas, oil, or water company threatened to shut off services in your home? No 10/15/2024 Social Connection and Isolation Panel Answer Date Recorded In a typical week, how many times do you talk on the phone with family, friends, or neighbors? More than three times a week 10/15/2024 How often do you get togethe r with friends or relatives? More than three times a week 10/15/2024 [facility] or [facility] services? Never 10/15/2024 Do you belong to any clubs o r organizations such as congregation groups, unions, fraternal or athletic groups, or school groups? No 10/15/2024 How often do you attend meet ings of the clubs or organizations you belong to? Never 10/15/2024 Are you , , di vorced, , never , or living with a partner? 10/15/2024 AUDIT-C Answer Date Recorded Q1: How often do you have a drink containing alcohol? Never 10/15/2024 Q2: How many drinks containi ng alcohol do you have on a typical day when you are drinking? Patient does not drink Q3: How often do you have si x or more drinks on one occasion? Never 10/15/2024 Overall Financial Resource Strain (CARDIA) Answe r Date Recorded How hard is it for you to pa y for the very basics like food, housing, medical care, and heating? Somewhat hard 10/15/2024 PHQ-2 Answer Date Recorded Total Score - Questions 1-9 0 08/24 [facility] - Occupational Stress Questionnaire Answer Date Recorded Do you feel stress - tense, restless, nervous, or anxious, or unable to sleep at night because your mind is troubled all the time - these days? Only a little 10/15/2024 Exercise Vital Sign Answer Date Recorde d On average, how many days pe r week do you engage in moderate to strenuous exercise (like a brisk walk)? 5 days 10/15/2024 On average, how many minutes do you engage in exercise at this level? 150+ min 10/15/2024 Hunger Vital Sign Answer Date Recorded Within the past 12 months, y ou worried that your food would run out before you got the money to buy more. Sometimes true Within the past 12 months, t he food you bought just didn't last and you didn't have money to get more. Sometimes true PRAPARE - Transportation Answer Date Re corded In the past 12 months, has l ack of transportation kept you from medical appointments or from getting medications? No 09/24 In the past 12 months, has l ack of transportation kept you from meetings, work, or from getting things needed for daily living? No 10/15/2024 Housing Stability Vital Sign Answer Jonas e Recorded In the last 12 months, was t here a time when you were not able to pay the mortgage or rent on time? Yes 10/15/2024 In the past 12 months, how m any times have you moved where you were living? 0 10/15/2024 At any time in the past 12 m [facility], were you homeless or living in a longterm (including now)? No 10/15/2024 Sexually Active Control Partners Comments Yes Surgical Male Comments No Sex and Gender Information Value Date Recorded Sex Assigned at Not on file Legal Sex Female 9:51 PM CDT Gender Identity Not on file Sexual Orientation Not on file Last Filed Vital Signs Vital Sign Reading Time Taken Comments Blood Pressure 120/66 12/12/2024 1:48 PM CDT Pulse 85 12/12/2024 1:48 PM CDT Temperature 36.9 C (98.4 F) 12/12/2024 1:48 PM CDT Respiratory Rate 18 11/18/2024 1:48 PM CDT Oxygen Saturation 99% 12/12/2024 1:48 PM CDT Inhaled Oxygen Concentration - - Weight 99.2 kg (218 lb 9.6 oz) 12/12/2024 1:48 P M CDT Height 171.5 cm (5' 7.5) 12/12/2024 1:48 PM CDT Body Mass Index 33.73 12/12/2024 1:48 PM CDT Plan of Treatment Health Maintenance Due Date Last Done Comments Hepatitis C Virus (HCV) Screening 1996 Varicella Immunization (1 of 2 - 13+ 2-dose series) 02/26/2009 Influenza Immunization (#1) 2025 03/12/2024, 04/16/2023, 05/01/2022, Additional history exists SARS-COV-2 Immunization (2024- season) 2025 05/01/2022, 12/02/2021, 07/05/2021, Additional history exists Pap [...] complete this topic Human Papillomavirus (HPV) Immunization Completed 12/31/2007, 06/05/2007, 04/03/2007 TdaP Immunization Discontinued 11/02/2017, 04/03/2007 Pneumococcal Immunization Combined Aged Out No longer eligible based on patient's age to complete this topic Rotavirus Immunization Aged Out No lo nger eligible based on patient's age to complete this topic Insurance MEDICAID [place] on file Care Teams Segment Block Layer Relationship Specialty Start Date End Date Gisel Reynolds, SALES SUPERINTENDENT, HYDRAULIC PRESS TENDER [address] [place] [address] PCP - General Certified Nurse Practitioner 09/18/24
--- OUTSIDE RECORDS SUMMARY | 2025-06-14 15:19 | XMS_ITS | Clinical Summary ---
Author Organization [facility] Address [address] [place] [address] Care Team Providers Care Census Clerk Name Role Phone No, Physician Primary Care Provider [phone] Allergies Active Allergy Reactions Criticality Noted Date Comments Measles, Mumps, Rubella,And Varicella Live Vaccine Anaphylaxis High 12/04/2019 Medications ondansetron (ZOFRAN) 4 mg tablet Take 1 tablet (4 mg total) by mouth every 8 (eight) hours as needed for vomiting or nausea 40 tablet 5 Active witch Rajan (TUCKS) 50 % pads, medicatedIndica tions:Hemorrhoi ds Apply topically every 4 (four) hours as needed (pain/itching) 20 each 5 Active hydrocortisone (ANUSOL-HC) 2.5 % rectal cream Insert into the rectum 4 (four) times a day as needed for hemorrhoids (rectal discomfort) 28 g 5 Active cyclobenzaprine (FLEXERIL) 10 mg tablet Take 1 tablet (10 mg total) by mouth 3 (three) times a day as needed for muscle spasms CAUTION: MAY CAUSE DROWSINESS 20 tablet 5 Active valACYclovir (VALTREX) 500 mg tablet Take 1 tab (500 mg) by mouth 2 times a day for 3 days. 6 tablet 5 Active clotrimazole (MYCELEX) 10 mg trocheIndicatio ns:oral candidiasis Take 1 tablet (10 mg total) by mouth 5 (five) times a day for 7 days 35 tablet 5 05/26/20 25 benzonatate (TESSALON) 200 mg capsule Take 1 capsule (200 mg total) by mouth 3 (three) times a day as needed for cough for up to 7 days 20 capsule 5 05/26/20 methylPREDNISol one (MEDROL DOSEPACK) 4 mg Dosepack Take as directed on package 1 packet 5 05/25/20 Active Problems Problem Noted Date Diagnosed Date Sprain of anterior talofibular ligament of right ankle 06/03/2024 Calcaneal spur of foot, right 06/03/2024 Inflamed epidermoid cyst of skin 10/26/2021 Overview (10/26/2021): Added automatically from request for surgery [id number] Borderline personality disorder 12/04/2019 Resolved Problems Problem Noted Date Diagnosed Date Resolved Date Acute bilateral otitis media 01/25/2019 12/03/2019 Acute pharyngitis 01/25/2019 12/03/2019 Strep throat exposure 01/25/20192019 Encounters Date Type Department Care Team Description 05/19/2025 2:15 PM [facility] E-Visit [address] [phone] Beth Thibodeaux NP Your Medications 05/19/2025 Patient Self-Triage [facility] [address] [place] [phone] Mychart, Generic Provider 05/18/2025 Patient Self-Triage [facility] [address] [place] [phone] Mychart, Generic Provider 05/18/2025 Patient Self-Triage [facility] [address] [place] [phone] Mychart, Generic Provider 05/18/2025 Patient Self-Triage [facility] [address] [place] [phone] Mychart, Generic Provider 05/18/2025 Patient Self-Triage [facility] [address] [place] [address] [phone] Mychart, Generic Provider 03/31/2025 12:55 PM CDT E-Visit [address] [phone] Etta Bartlett NP Your Medications 03/31/2025 Patient Self-Triage [facility] [address] [place] [address] Mychart, Generic Provider from Last 3 Months [...] on file Legal Sex Female 9:16 AM [facility] SA[facility]ER Gender Identity Not on file Sexual Orientation [...] Comments Blood Pressure 121/73 06/03/2024 11:29 AM VENEER SAWYER Pulse 80 06/03/2024 11:29 AM [facility]ENEER SAWYER Temperature 36.5 C (97.7 F) 06/03/2024 9:01 AM [facility]ENEER SAWYER Respiratory Rate 18 06/03/2024 11:29 AM [facility]ENEER SAWYER Oxygen Saturation 98% 06/03/2024 11:29 AM [facility]ER SAWYER Inhaled Oxygen Concentration - - Weight 103.4 kg (228 lb) 06/03/2024 9:01 AM [facility]ER SAW[facility]ER Height 170.2 cm (5' 7) 06/03/2024 9:01 AM [facility]ENEER SAWYER Body Mass Index 35.71 06/03/2024 9:01 AM VENEER SAWYER Plan of Treatment Health Maintenance Due Date Last Done Comments Cervical Cancer Screening 1996 Hepatitis C Screening 1996 Varicella Vaccines (1 of 2 - 13+ 2-dose series) 02/26/2009 Regular Well Visit/Exam 18-64 02/26/2014 Pneumococcal vaccine <65 (1 of 2 - PCV) 02/26/2015 Depression Screening 12/02/2020 12/03/2019, 12/03/19 20 Covid-19 Vaccine (3 - 2024-2 6 season) 2025 07/05/2021, 05/25/2021 Influenza Vaccine (#1) 2025 , 04/16/2023, 05/01/2022, Additional history exists DTaP/Tdap/Td Vaccine (8 - Td or Tdap) 11/03/2027 11/02/2017, 04/03/2007, 12/20/2001, Additional history exists Hepatitis B Screening Completed 1996 , 1996, 1996 HPV Vaccines Completed 12/31/2007, 05/25, 04/03/[address] [place] [place] [address] [facility] Advance Directives For more information, please contact: [phone] * Full Code (Latest Code Status on File) Date Activated Date Inactivated Comments 12/04/2019 4:26 AM 12/04/2019 7:44 PM Care Teams Census Clerk Relationship Specialty Start Date End Date No, Physician PCP - General 07/15/19
--- OUTSIDE RECORDS SUMMARY | 2025-06-14 15:20 | XMS_ITS | Patient Health Record ---
Author Organization [facility] Address [address] [place] [address] Phone [phone] Care Team Providers Care Director Ship Name Role Phone Xochitl Francisco Primary Care Provider [phone] Allergies Allergen (clinical drug ingredient) Drug/Non Drug Allergy documented on EMR Reaction Allergy Type Onset Date Status Measles & Rubella Vaccines Unknown Drug Allergy Active fluoxetine FLUoxetine Unknown Drug Allergy Activ e Results Component Value Reference Range Notes 12 Panel Urine Drug Screen Order date: 07/15/2024 Reviewed date:07/15/2024 10:53:01 AM Interpretation: Performing Lab: Notes/Report: THC pos DANIEL neg MOP (OPI) neg AMP neg MET neg BAR neg BZO neg MDMA neg MTD neg OXY neg PCP neg BUP neg Reason For Referral Referral Date 05/11/2025 Referral Status Open Reason Help with applying f or disability Diagnosis 1 Bipolar affective di sorder (F31.9) Referral Organization [facility] Referring Provider First Name Xochitl Referring Provider Last Name Nolan Referring Provider Speciality Psychiatry Referred Provider Specialty Physics Faculty MemberPark Recreation Manager Notes Xochitl Francisco 10:08:30 AM > client would like help with applying for disability please. Thank you. Clinical Notes Daniela Lebron 06/01/2025 10:43:42 AM > Glaze Maker called and left voicemail message for client Referral Priority Routine Medications Medication SIG (Take, Route, Frequency, Duration) Notes Start Date End Date Diagnosis (ICD Code) Status Imitrex 50 MG Tablet 1 tablet as needed, may take second dose at least 2 hours after first dose up to 4 tablets per day as needed Orally Once a day Active QUEtiapine Fumarate 25 MG Tablet 3 tablet at bedtime Orally Once a day; Duration: 30 days Bipolar affectiv e disorder (ICD_10 - F31.9) Active Topiramate 200 MG Tablet 1 tablet Orally Once a day; Duration: 30 days at night for 225 mg at night Bipolar affectiv e disorder (ICD_10 - F31.9) Active Amphetamine-Dext roamphetamine 20 MG Tablet 1 tablet twice daily and 0.5 tablet in the afternoon Orally Twice a day; Duration: 30 days 06/03/2025 ADHD (attention deficit hyperactivity disorder) (ICD_10 - F90.9) Active Loestrin Fe 1.5/30 1.5-30 MG-MCG Tablet 1 tablet Orally Once a day; Duration: 28 days 04/06/2025 Over weight (ICD_10 - E66.3) Active Topiramate 25 MG Tablet 2 tablets in the morning (50mg) AND 1 tablet at night (225mg) Orally; Duration: 30 days Bipolar affectiv e disorder (ICD_10 - F31.9) Active Mirtazapine 7.5 MG Tablet 0.5 tablet at bedtime Orally Once a day; Duration: 30 days Sleep disturbanc e, unspecified (ICD_10 - G47.9) Not-Taking cloNIDine HCl ER 0.1 MG Tablet Extended Release 12 Hour 1 tablet Orally 3 times a day; Duration: 30 days ADHD (attention deficit hyperactivity disorder) (ICD_10 - F90.9) Active Topiramate 25 MG Tablet TAKE 2 TABLETS EVERY MORNING AND 1 TABLET AT NIGHT; Duration: 90 Bipolar affectiv e disorder (ICD_10 - F31.9) Active cloNIDine HCl ER 0.1 MG Tablet Extended Release 12 Hour TAKE 1 TABLET BY MOUTH TWICE DAILY; Duration: 90 ADHD (attention deficit hyperactivity disorder) (ICD_10 - F90.9) Active Social History Tobacco Use: Social History Observation Description Date Details (start date - stop date) Former Smoker NA - NA Sex Observation Social History Observation Description Sex Observation Female Sexual Orientation Social History Observation Description Sexual Orientation Straight or heterose xual Gender Identity Social History Observation Description Gender Identity Female Social History Miscellaneous Social Info Question Answer Notes Method of learning: Preferred method of learning: Reading,Discussion,Demonstra tion,Hearing Primary Social History Social Info Question Answer Notes Living Arrangement Living Arrangement: Dependent Maxwell eng Living with: boyfriend Is this a supportive environment? Yes Tobacco Use - do not use Tobacco Use: Status Reviewed with Patient Single Question Alcohol Screening How many times in the past year have you had (4 for women, or 5 for men) or more drinks in a day? 0 Employment Status Employment Status: Employed [employer] Illicit Substance Usage Illicit Substance Usage: Yes Substance Used: Cannabis Frequency Cannabis is used: Around 2 times per week Tobacco Use: Social Info Question Answer Notes Tobacco Control (Standard) Additional Findings: Tobacco user Light cigarette smoker (1-9 cigs/day) Additional Findings: Tobacco non-user Ex-light c igarette smoker (1-9/day) How long has it been since you last smoked? 1-5 years Tobacco use: Former smoker Problems Problem Type SNOMED Code ICD Code Dates Problem Status W/U Status Risk Notes Problem Generalized anxiety disorder (90910141) Generalized anxiety disorder (F41.1) Added On:10/28 Active confirmed Problem Attention deficit hyperactivity disorder (790536848) ADHD (attention deficit hyperactivity disorder) (F90.9) Added On:12/10 Active confirmed Problem Bipolar affective disorder (19131564) Bipolar affective disorder (F31.9) Added On:10/28 Active confirmed Problem Overweight (775252702) Over weight (E66.3) Added On:10/01 Active confirmed Problem Sleep disturbance (40269569) Sleep disturbance, unspecified (G47.9) Added On:10/28 Active confirmed Vital Signs Vital Sign Value Notes Appt Date Heart Rate 88 /min 04/06/2025 Temperature 97.4 degrees Fahrenheit 03/25 Respiratory Rate 16 /min 04/06/2025 Blood pressure diastolic 70 mm Hg Oximetry 99 % 04/06/2025 Height 67.5 inches in 04/06/2025 Blood pressure systolic 122 mm Hg 03/25 Weight 210.4 lbs lbs 04/06/2025 BMI 32.46 kg/m2 04/06/2025 Encounters Date Time Type Facility Location Provider Diagnosis 07/15/19 10:20 AM [place] ([address]) [facility] [place] [address] Xochitl Francisco Nutritional counseling Z71.3 ; Bipolar affective disorder F31.9 ; Generalized anxiety disorder F41.1 ; Sleep disturbance, unspecified G47.9 and ADHD (attention deficit hyperactivity disorder) F90.9 08/19/19 03:00 PM Telehealth Office Visit, Est Pt., Level 4 (89266) [facility] [address] Xochitl Francisco Nutritional counseling Z71.3 ; Bipolar affective disorder F31.9 ; Generalized anxiety disorder F41.1 ; Sleep disturbance, unspecified G47.9 and ADHD (attention deficit hyperactivity disorder) F90.9 10/02/19 10:00 AM [facility] (3008F) [address] [address] Xochitl Francisco Over weight E66.3 ; Nutritional counseling Z71.3 ; Bipolar affective disorder F31.9 ; Generalized anxiety disorder F41.1 ; Sleep disturbance, unspecified G47.9 and ADHD (attention deficit hyperactivity disorder) F90.9 10/15/19 10:00 AM Telehealth Office Visit, Est Pt., Level 4 (99016) [place] [address] [place] [address] Xochitl Francisco Over weight E66.3 ; Nutritional counseling Z71.3 ; Bipolar affective disorder F31.9 ; Generalized anxiety disorder F41.1 ; Sleep disturbance, unspecified G47.9 and ADHD (attention deficit hyperactivity disorder) F90.9 11/13/19 03:40 PM Telehealth Office Visit, Est Pt., Level 4 (99986) [address] [place] [address] Xochitl Francisco Generalized anxiety disorder F41.1 ; Sleep disturbance, unspecified G47.9 ; Bipolar affective disorder F31.9 and ADHD (attention deficit hyperactivity disorder) F90.9 07/08/20 25 02:20 PM Office Visit, Est Pt., Level 4 (52288) [place] [address] [place] [address] Xochitl Nolan Over weight E66.3 ; Generalized anxiety disorder F41.1 ; Sleep disturbance, unspecified G47.9 ; ADHD (attention deficit hyperactivity disorder) F90.9 and Bipolar affective disorder F31.9 01/30/20 25 09:00 AM Telehealth Office Visit, Est Pt., Level 4 (86518) [address] [address] Xochitl Nolan Over weight E66.3 ; Generalized anxiety disorder F41.1 ; Sleep disturbance, unspecified G47.9 ; ADHD (attention deficit hyperactivity disorder) F90.9 and Bipolar affective disorder F31.9 02/27/20 08:20 AM Telehealth Office Visit, Est Pt., Level 4 (64249) [address] [address] Xochitl Nolan Over weight E66.3 ; Generalized anxiety disorder F41.1 ; Sleep disturbance, unspecified G47.9 ; ADHD (attention deficit hyperactivity disorder) F90.9 and Bipolar affective disorder F31.9 04/06/20 25 01:20 PM Office Visit, Est Pt., Level 4 (36520) [address] [address] Xochitl Nolan Over weight E66.3 ; Generalized anxiety disorder F41.1 ; Sleep disturbance, unspecified G47.9 ; ADHD (attention deficit hyperactivity disorder) F90.9 and Bipolar affective disorder F31.9 05/06/20 25 08:40 AM Telehealth Office Visit, Est Pt., Level 4 (83019) [address] [address] Xochitl Nolan Over weight E66.3 ; Generalized anxiety disorder F41.1 ; Sleep disturbance, unspecified G47.9 ; ADHD (attention deficit hyperactivity disorder) F90.9 and Bipolar affective disorder F31.9 06/03/20 25 09:20 AM Telehealth Office Visit, Est Pt., Level 4 (51381) [address] [address] Xochitl Francisco Over weight E66.3 ; Generalized anxiety disorder F41.1 ; Sleep disturbance, unspecified G47.9 ; ADHD (attention deficit hyperactivity disorder) F90.9 and Bipolar affective disorder F31.9 07/16/19 25 11:25 AM Telephone Encounter [address] [address] Xochitl Francisco 08/11/19 25 09:09 AM Telephone Encounter [facility] [address] [address] Xochitl Francisco ADHD (attention deficit hyperactivity disorder) F90.9 and Bipolar affective disorder F31.9 08/22/19 25 10:19 AM Telephone Encounter [address] [address] Xochitl Francisco 09/02/19 25 08:55 AM Telephone Encounter [address] [address] Xochitl Francisco 09/19/19 25 03:21 PM Telephone Encounter [address] [address] Xochitl Francisco 11/13/19 25 08:38 PM Telephone Encounter [address] [address] Xochitl Francisco 11/14/19 25 08:58 AM Telephone Encounter [facility] [address] [address] Xochitl Francisco 12/16/19 25 10:16 AM Telephone Encounter [address] [address] Xochitl Francisco ADHD (attention deficit hyperactivity disorder) F90.9 ; Bipolar affective disorder F31.9 and Generalized anxiety disorder F41.1 12/17/19 25 09:14 AM Telephone Encounter [address] [address] Xochitl Francisco 01/01/20 25 01:06 PM Telephone Encounter [address] [address] Xochitl Francisco 02/28/20 25 10:51 AM Telephone Encounter [address] [address] Xochitl Francisco 03/20/20 25 11:06 AM Telephone Encounter [address] [address] Xochitl Francisco Bipolar affective disorder F31.9 and ADHD (attention deficit hyperactivity disorder) F90.9 03/30/20 25 08:58 AM Telephone Encounter [facility] [address] [address] Xochitl Francisco 03/30/20 25 09:41 AM Telephone Encounter [address] [address] Xochitl Francisco 04/06/20 25 02:53 PM Telephone Encounter [address] [address] Xochitl Francisco 05/06/20 25 10:07 AM Telephone Encounter [address] [address] Xochitl Francisco 06/03/20 25 02:44 PM Telephone Encounter [facility] [address] [place] [address] Xochitl Francisco 10/16/19 25 10:59 PM Web Encounter [address] [address] Xochitl Francisco 03/01/20 25 01:44 PM Web Encounter [address] [address] Xochitl Francisco 03/04/20 25 05:11 PM Web Encounter [address] [address] Xochitl Francisco ADHD (attention deficit hyperactivity disorder) F90.9 03/06/20 25 10:23 AM Web Encounter [address] [place] [address] Xochitl Francisco 03/20/20 25 12:26 PM Web Encounter [address] [address] Xochitl Francisco ADHD (attention deficit hyperactivity disorder) F90.9 and Bipolar affective disorder F31.9 03/25/20 07:35 PM Web Encounter [address] [address] Xochitl Francisco Bipolar affective disorder F31.9 04/06/20 03:44 PM Web Encounter [address] [address] Xochitl Francisco 04/30/20 09:50 PM Web Encounter [address] [address] Xochitl Francisco ADHD (attention deficit hyperactivity disorder) F90.9 05/11/20 09:35 AM Web Encounter [address] [address] Xochitl Francisco Bipolar affective disorder F31.9 05/13/20 10:50 AM Web Encounter [address] [address] Xochitl Francisco ADHD (attention deficit hyperactivity disorder) F90.9 Assessments Encounter Date Diagnosis (ICD Code) Assessment Notes Treatment Notes Section Notes 07/15/2024 Nutritional counseling (ICD-10 - Z71.3) 08/11/2024 ADHD (attention deficit hyperactivity disorder) (ICD-10 - F90.9) 08/19/2024 Nutritional counseling (ICD-10 - Z71.3) 10/01/2024 Over weight (ICD-10 - E66.3) 10/14/2024 Over weight (ICD-10 - E66.3) 11/12/2024 Generalized anxiety disorder (ICD-10 - F41.1) Encouraged therapy. Hx of doing well with clonidine, restarting 12/15/2024 ADHD (attention deficit hyperactivity disorder) (ICD-10 - F90.9) 12/30/2024 Over weight (ICD-10 - E66.3) 01/29/2025 Over weight (ICD-10 - E66.3) 02/26/2025 Over weight (ICD-10 - E66.3) 03/04/2025 ADHD (attention deficit hyperactivity disorder) (ICD-10 - F90.9) 03/25/2025 Bipolar affective disorder (ICD-10 - F31.9) 03/20/2025 Bipolar affective disorder (ICD-10 - F31.9) 03/20/2025 ADHD (attention deficit hyperactivity disorder) (ICD-10 - F90.9) 04/06/2025 Over weight (ICD-10 - E66.3) Client with manic symptoms around ovulation. F/U with OB. Hx of being on higher strenth combination pills with feeling mild depression. May start Lo Loestrin at this time. Discussed r/b/se. Client does not smoke/vape. 04/30/2025 ADHD (attention deficit hyperactivity disorder) (ICD-10 - F90.9) 05/11/2025 Bipolar affective disorder (ICD-10 - F31.9) 05/13/2025 ADHD (attention deficit hyperactivity disorder) (ICD-10 - F90.9) 05/06/2025 Over weight (ICD-10 - E66.3) 06/03/2025 Over weight (ICD-10 - E66.3) 06/03/2025 Generalized anxiety disorder (ICD-10 - F41.1) Encouraged therapy. Hx of doing well with clonidine, see ADHD 05/06/2025 Generalized anxiety disorder (ICD-10 - F41.1) Encouraged therapy. Hx of doing well with clonidine, see ADHD 03/20/2025 Bipolar affective disorder (ICD-10 - F31.9) 04/06/2025 Generalized anxiety disorder (ICD-10 - F41.1) Encouraged therapy. Hx of doing well with clonidine, see ADHD 03/20/2025 ADHD (attention deficit hyperactivity disorder) (ICD-10 - F90.9) 02/26/2025 Generalized anxiety disorder (ICD-10 - F41.1) Encouraged therapy. Hx of doing well with clonidine, see ADHD 01/29/2025 Generalized anxiety disorder (ICD-10 - F41.1) Encouraged therapy. Hx of doing well with clonidine, see ADHD 12/15/2024 Bipolar affective disorder (ICD-10 - F31.9) 12/30/2024 Generalized anxiety disorder (ICD-10 - F41.1) Encouraged therapy. Hx of doing well with clonidine, see ADHD 11/12/2024 Sleep disturbance, unspecified (ICD-10 - G47.9) Continue seroquel 10/14/2024 Nutritional counseling (ICD-10 - Z71.3) 10/01/2024 Nutritional counseling (ICD-10 - Z71.3) 07/15/2024 Bipolar affective disorder (ICD-10 - F31.9) Discussed r/b/se. To start extra 25 mg topiramate in 1 week. 08/19/2024 Bipolar affective disorder (ICD-10 - F31.9) Reports doing well with mood with topiramate. 08/11/2024 Bipolar affective disorder (ICD-10 - F31.9) 07/15/2024 Generalized anxiety disorder (ICD-10 - F41.1) Encouraged therapy. 08/19/2024 Generalized anxiety disorder (ICD-10 - F41.1) Encouraged therapy. 10/01/2024 Bipolar affective disorder (ICD-10 - F31.9) Reports doing well with mood with topiramate. 10/14/2024 Bipolar affective disorder (ICD-10 - F31.9) Was doing well with Seroquel, restarting 12/15/2024 Generalized anxiety disorder (ICD-10 - F41.1) 11/12/2024 ADHD (attention deficit hyperactivity disorder) (ICD-10 - F90.9) Discussed controlled sub. PDMP checked without concerns. 11/12/2024 Bipolar affective disorder (ICD-10 - F31.9) monitor appetite 12/30/2024 Sleep disturbance, unspecified (ICD-10 - G47.9) Continue seroquel 01/29/2025 Sleep disturbance, unspecified (ICD-10 - G47.9) Continue seroquel 02/26/2025 Sleep disturbance, unspecified (ICD-10 - G47.9) Continue seroquel 04/06/2025 Sleep disturbance, unspecified (ICD-10 - G47.9) Continue seroquel 06/03/2025 Sleep disturbance, unspecified (ICD-10 - G47.9) Continue seroquel 05/06/2025 Sleep disturbance, unspecified (ICD-10 - G47.9) Continue seroquel 06/03/2025 ADHD (attention deficit hyperactivity disorder) (ICD-10 - F90.9) Discussed controlled sub. PDMP checked without concerns. 05/06/2025 ADHD (attention deficit hyperactivity disorder) (ICD-10 - F90.9) Discussed controlled sub. PDMP checked without concerns. 04/06/2025 ADHD (attention deficit hyperactivity disorder) (ICD-10 - F90.9) Discussed controlled sub. PDMP checked without concerns. 02/26/2025 ADHD (attention deficit hyperactivity disorder) (ICD-10 - F90.9) Discussed controlled sub. PDMP checked without concerns. Adderall with positive effects on concentration but moderate increase in irritability. Change to Concerta, discussed r/b/se. 01/29/2025 ADHD (attention deficit hyperactivity disorder) (ICD-10 - F90.9) Discussed controlled sub. PDMP checked without concerns. IR form not helping as well as did in the past, changing, monitor 12/30/2024 ADHD (attention deficit hyperactivity disorder) (ICD-10 - F90.9) Discussed controlled sub. PDMP checked without concerns. Overstimulation and anxiety 2/2 stimuli noted, change clonidine to ER for ADHD and for anxiety reasoning. 10/14/2024 Generalized anxiety disorder (ICD-10 - F41.1) Encouraged therapy. Hx of doing well with clonidine, restarting 10/01/2024 Generalized anxiety disorder (ICD-10 - F41.1) Encouraged therapy. 08/19/2024 Sleep disturbance, unspecified (ICD-10 - G47.9) Discussed [...] this time- will reassess at next appt. 10/01/2024 Sleep disturbance, unspecified (ICD-10 - G47.9) Possible irritability r/t mirtazapine, decrease to half tablet. Also increasing topamax. Monitor fatigue. Discussed r/b/se. 10/14/2024 Sleep disturbance, unspecified (ICD-10 - G47.9) Restarting Seroquel 12/30/2024 Bipolar affective disorder (ICD-10 - F31.9) monitor appetite 01/29/2025 Bipolar affective disorder (ICD-10 - F31.9) change back dosing to mostly at night r/t fatigue 02/26/2025 Bipolar affective disorder (ICD-10 - F31.9) change back dosing to mostly at night r/t fatigue. 04/06/2025 Bipolar affective disorder (ICD-10 - F31.9) 05/06/2025 Bipolar affective disorder (ICD-10 - F31.9) 06/03/2025 Bipolar affective disorder (ICD-10 - F31.9) 10/14/2024 ADHD (attention deficit hyperactivity disorder) (ICD-10 - F90.9) Discussed controlled sub. PDMP checked without concerns. 10/01/2024 ADHD (attention deficit hyperactivity disorder) (ICD-10 - F90.9) Discussed controlled sub. PDMP checked without concerns. 07/15/2024 Other PDMP checked without concerns. Reasons, [...] up. This session was completed telephonically with client/parental/michael n consent: Unable to determine movement status, assess [...] also contact the 24-hour crisis hotline ([facility]), refer to the closest emergency room or [...] up. This session was completed telephonically with client/parental/michael n consent: Unable to determine movement status, assess appearance, affect, AIMS, or vital signs. 10/01/2024 Other Reasons, potential benefits, potential risks, interactions [...] also contact the 24-hour crisis hotline ([facility]), refer to the closest emergency room or [...] up. This session was completed telephonically with client/parental/michael n consent: Unable to determine movement status, assess appearance, affect, AIMS, or vital signs. 10/14/2024 Other Reasons, potential benefits, potential risks, interactions [...] also contact the 24-hour crisis hotline ([facility]), refer to the closest emergency room or [...] of education, treatment plan and follow up. 11/12/2024 Other Reasons, potential benefits, potential risks, interactions [...] also contact the 24-hour crisis hotline ([facility]), refer to the closest emergency room or [...] up. This session was completed telephonically with client/parental/michael n consent: Unable to determine movement status, assess appearance, affect, AIMS, or vital signs. 12/30/2024 Other Reasons, potential benefits, potential risks, interactions [...] also contact the 24-hour crisis hotline ([facility]), refer to the closest emergency room or [...] of education, treatment plan and follow up. 01/29/2025 Other Reasons, potential benefits, potential risks, interactions [...] also contact the 24-hour crisis hotline ([facility]), refer to the closest emergency room or [...] up. This session was completed telephonically with client/parental/michael n consent: Unable to determine movement status, assess appearance, affect, AIMS, or vital signs. 02/26/2025 Other Reasons, potential benefits, potential risks, interactions [...] also contact the 24-hour crisis hotline ([facility]), refer to the closest emergency room or [...] up. This session was completed telephonically with client/parental/michael n consent: Unable to determine movement status, assess appearance, affect, AIMS, or vital signs. 04/06/2025 Other Reasons, potential benefits, potential risks, interactions [...] also contact the 24-hour crisis hotline ([facility]), refer to the closest emergency room or [...] of education, treatment plan and follow up. 05/06/2025 Other Reasons, potential benefits, potential risks, interactions [...] also contact the 24-hour crisis hotline ([facility]), refer to the closest emergency room or [...] up. This session was completed telephonically with client/parental/michael n consent: Unable to determine movement status, assess appearance, affect, AIMS, or vital signs. 06/03/2025 Other Reasons, potential benefits, potential risks, interactions [...] also contact the 24-hour crisis hotline ([facility]), refer to the closest emergency room or [...] up. This session was completed telephonically with client/parental/michael n consent: Unable to determine movement status, assess appearance, affect, AIMS, or vital signs. Plan Of Treatment No Information Insurance Providers Payer Name Payer Address Payer Phone Subscriber Number Group Number Insured Name Patient Relationship to Insured Coverage Start Date Coverage End Date [employer] [address] [place] [address] [id number] Sandra Perdomo Self - patient is the insured 4 [employer] [address] [place] [address] [id number] Sandra Perdomo Self - patient is the insured 4 Medical (General) History Medical History History ICD Code Asthma Surgical History Surgery Date(Month/Year) Tubal Ligation Jul 2018
--- OUTSIDE RECORDS SUMMARY | 2025-06-14 15:20 | XMS_ITS | Data Portability ---
Author Organization [facility] [place] Address [address] [place] [address] Assessment Encounter Date Assessment Date Assessment LastModified by Organization Details LastModified Time 10/06/2020 10/06/2020 PCOS labs, A1C, TSH US to be scheduled discussed ocp to regulate bleeding, pt desires Discussed the usage, side effects, risks, and benefits of OCP use. Questions answered. Prescription given for microgestin. She will start OCP with next menses WWE and med check 3 mos [email or web address] Not available 10/06/2020 15:44:25 Plan of Treatment Reminders Order Date Submit Date Provider Last Modified By Organization Details Last Modified Time Details Appointments None recorded. Lab testosteron e, free + total, serum 2020 [facility] (Lab), [address] [place], [address], 10:47:42 dhea-sulfat e, serum 2020 [facility] (Lab), [address] [place], [address], 17:24:19 estradiol, serum 2020 [facility] (Lab), [address] [place], [address], 17:24:17 FSH (follicle-s timulating hormone), serum 2020 [facility] (Lab), [address], [place], [address], 1 17:24:18 HbA1c (hemoglobin A1c), blood 2020 [facility] (Lab), [address], [place], [address], 1 17:24:17 prolactin, serum 2020 [facility] (Lab), [address], [place], [address], 1 17:24:18 TSH, serum or plasma 2020 [facility] (Lab), [address], [place], [address], 1 17:24:18 testosteron e free/testos terone total, ratio, serum 2020 [facility] (Lab), [address] [facility], [place], [address], 1 17:24:19 Referral None recorded. Procedures None recorded. Surgeries None recorded. Imaging None recorded. Medication Orders Microgestin FE 07/14 (28) 1 mg-20 mcg (21)/75 mg (7) tablet 2020 [id number], [address], [place], [place], [id number], 15:01:27 Patient TargetsNo targets recorded. Patient InstructionsNo instructions recorded. Reason for Referral None Reported. Results Created Date Observation Date Name Description Value Unit Range Abnormal Flag Note LastModifiedBy Organization Detail LastModifiedTime 10/07/19 21 10/06/2020 HbA1c (hemo globi n A1c), blood hemoglobin A1C 5.2 % 0-5.6 The Ameri can Diabe oj Assoc iatio n recom mends that a prima ry goal of thera kaitlyn mcdaniels d be a HBA1C of < 7% and that physi cians shoul d reeva luate the treat ment regim en in patie nts with HBA1C value s consi stent ly > 8%. <5.7% Nohemi l 5.7 - 6.4% Incre ased risk for diabe jo >=6.5 % Diagn ostic of diabe oj <7.0% Goal of thera py >8.0% Actio n sugge sted Not Available [facility] (Lab) [address] [facility], [place], [address], 10/12/2020 17:24:17 10/07/19 21 10/06/2020 estra diol, serum estradiol 53.9 pg/mL This assay was perfo rmed using [employer] ratio n reage nts and test kits. Value s obtai terese with other assay metho ds or kits canno t be used inter [facility] . Femal e Estra diol Range s: Folli cular phase 12.4- 233 pg/mL Ovula tion phase 41.0- 398 pg/mL Lutea l phase 22.3- 341 pg/mL Postm enopa usal< 5-138 pg/mL Healt hy Pregn ant Women 1st Trime ster1 54-32 43 pg/mL 2nd Trime ster1 561-2 1280 pg/mL 3rd Trime ster8 525-> 78831 pg/mL Not Available [facility] (Lab) [address] [place], [address], 10/12/2020 17:24:17 10/07/19 21 10/06/2020 FSH (foll icle- stimu latin g hormo ne), serum FSH 2.0 mIU/m L This assay was perfo rmed using [employer] ratio n reage nts and test kits. Value s obtai terese with other assay metho ds or kits canno t be used inter cai eably . Femal es Folli cular : 3.5-1 2.5 mIU/m L Ovula tion: 4.7-2 1.5 mIU/m L Lutea l: 1.7-7 .7 mIU/m L Postm enopa use: 25.8- 134.8 mIU/m L Not Available [facility] (Lab) [address] [facility], [place], [address], 10/12/2020 17:24:18 10/07/19 21 10/06/2020 TSH, serum or plasm a TSH 0.83 uIU/m L 0.30-5 .00 Not Available [facility] (Lab) [address] [facility], [place], [address], 10/12/2020 17:24:18 10/07/19 21 10/06/2020 prola ctin, serum prolactin, total 3.45 NG/mL 4.79-2 3.30 low This assay was perfo rmed using [employer] ratio n reage nts and test kits. Value s obtai terese with other assay metho ds or kits canno t be used inter cai eably . Not Available [facility] (Lab) [address] [facility], [place], [address], 10/12/2020 17:24:18 10/07/19 21 10/06/2020 dhea- sulfa te, serum DHEA-sulfate 305 ug/dL (based on docume nted legal sex) 148-40 7 Not Available [facility] (Lab) [address] [place], [address], 10/12/2020 17:24:19 10/07/19 21 10/06/2020 testo stero ne free/ testo stero ne total , ratio , serum testosterone , total 25 NG/dL 2-45 For addit ional infor lars peters, plefransisco e refer to http: //kerri colon n.que stdia gnost ics.c om/fa q/Tot al Testo stero neLCM SMS (This link is being provi ded for infor lars nal/e ducat ional purpo ses only. ) This test was devel oped and its mary tical perfo rmanc e jaron cteri stics have been deter mined by [facility] [employer] [facility]. It has not been clear ed or appro jesus by the FDA. This assay has been valid ated pursu ant to the CLIA regul ation s and is used for clini beatriz purpo ses. Not Available [facility] (Lab) [address] [facility], [place], [address], 10/12/2020 17:24:19 10/07/19 21 10/06/2020 testo stero ne free/ testo stero ne total , ratio , serum testosterone , free 1.3 pg/mL 0.1-6. 4 This test was devel oped and its mary tical perfo rmanc e jaron cteri stics have been deter mined by [employer] [facility]. It has not been clear ed or appro jesus by the FDA. This assay has been valid ated pursu ant to the CLIA regul ation s and is used for clini beatriz purpo ses. Perfo rming Organ izati on Infor lars n: Site ID: [id number] Name: [id number] [facility]stic [facility] Addre ss: [id number] [place] [address] Dire tor: Leonardo kearney M.D. Not Available [facility] (Lab) [address], [place], [address], 10/12/2020 17:24:19 Result Notes None recorded. Problems Name Problem SNOMED Code Status Onset Date Resolution Date Notes Provider Name and Address Organization Details Recorded Time Uterine size for dates discrepa vay [id number] Completed 201210/06/2020 UTERINE SIZE VON-ANTE PAR;Pio rded Elsewher e: No Locat ion: Anna szymanski [facility] S ource: EHR Enamel Burner brandon: N Practi ce ID: 0001 Daniel lable Time: 05:00:00 PM Rosi Henriquez MD [address], [place], [address], [place] [facility] 14:50:06 Threaten ed miscarri age [id number] Completed 201210/06/2020 Threaten ed , antepart um;Recor ded Elsewher e: No [facility] Enamel Burner brandon: N Practi ce ID: 0001 Daniel lable Time: 02:30:00 PM Rosi Henriquez MD [address], [place], [address], [facility] 14:49:52 Speciali zed medical examinat ion Completed 201210/06/2020 Routine gynecolo gical examinat ion;Prac christina ID: 0001 Rosi Henriquez MD [address], [place], [address], [facility] 14:49:43 Primigra erwin [id number] Completed 201210/06/2020 Supervis ion of normal first pregnanc y;Record ed Elsewher e: No Locat ion: [facility] S ource: EHR Enamel Burner brandon: N Practi ce ID: 0001 Daniel lable Time: 01:30:00 PM Rosi Henriquez MD [address], [place], [address], [facility] 14:49:22 Ultrason ography Completed 201210/06/2020 Antenata l screenin g for malforma tion using ultrason ics;Pio rded Elsewher e: No Locat ion: [facility] S ource: EHR Enamel Burner brandon: N Practi ce ID: 0001 Daniel lable Time: 01:00:00 PM Rosi Henriquez MD [address], [place], [address], [facility] 14:49:59 Antenata l screenin g Completed 201210/06/2020 Antenata l screenin g for malforma tion using ultrason ics;Pio rded Elsewher e: No Locat ion: [facility] S ource: EHR Enamel Burner brandon: N Practi ce ID: 0001 Daniel lable Time: 01:00:00 PM Rosi Henriquez MD [address], [place], [address], [facility] 14:47:54 Congenit al malforma tion [id number] Completed 201210/06/2020 Antenata l screenin g for malforma tion using ultrason ics;Pio rded Elsewher e: No Locat ion: [facility] S ource: EHR Enamel Burner brandon: N Practi ce ID: 0001 Daniel lable Time: 01:00:00 PM Rosi Henriquez MD [address], [place], [address], [facility] 14:48:11 Vaginal abnormal ity complica ting antenata l care - baby not yet delivere d [id number] Completed 201310/06/2020 Congenit al or acquired abnormal ity of vagina, antepart um conditio n or complica tion;Pra ctice ID: 0001 Rosi Henriquez MD [address], [place], [address], [facility] 14:50:10 Labor and delivery complica kit by heart rate anomaly [id number] Completed 201310/06/2020 HEART RATE NON REASSURI NG;Pract ice ID: 0001 Rosi Henriquez MD [address], [place], [address], [facility] 14:49:04 Delivery normal [id number] Completed 201310/06/2020 Normal delivery ;Practic e ID: 0001 Rosi Henriquez MD [address], [place], [address], [facility] 14:48:19 Single live from singleto n pregnanc y [id number] Completed 201310/06/2020 Mother with single liveborn ;Practic e ID: 0001 Rosi Henriquez MD [address], [place], [address], [facility] 14:49:37 Pregnanc y test negative [id number] Completed 201310/06/2020 Pregnanc y examinat ion or test, negative result;R ecorded Elsewher e: No Locat ion: [facility] S ource: EHR Enamel Burner brandon: N Martinati ce ID: 0001 Daniel lable Time: 03:30:00 PM Rosi Henriquez MD [address], [place], [address], [facility] 14:49:20 Postpart um care Completed 201310/06/2020 Post Followup ;Recorde d Elsewher e: No Locat ion: [facility] S ource: EHR Enamel Burner brandon: N Julio ce ID: 0001 Daniel lable Time: 03:30:00 PM Rosi Henriquez MD [address], [place], [address], [facility] 14:49:16 Implanta tion of subcutan eous contrace ptive Completed 201310/06/2020 Insertio n of implanta ble subderma l contrace ptive;Re corded Elsewher e: No Locat ion: [facility] S ource: EHR Enamel Burner brandon: N Martinati ce ID: 0001 Daniel lable Time: 10:17:00 AM Rosi Henriquez MD [address], [place], [address], [facility] 14:49:01 Procedur e Completed 201610/06/2020 Enctr srvlnc implanta ble subderma l contrace ptive;Pr actice ID: 0001 Rosi Henriquez MD [address], [place], [address], [facility] 14:49:24 Syphilis test finding [id number] Completed 201610/06/2020 Encntr screen for infectio ns w sexl mode of transmis s;Record ed Elsewher e: No Locat ion: [facility] S ource: EHR Enamel Burner brandon: N Practi ce ID: 0001 Daniel lable Time: 12:00:00 PM Rosi Henriquez MD [address], [place], [address], [facility] 14:49:50 Amenorrh ea [id number] Completed 201610/06/2020 Amenorrh ea;Recor ded Elsewher e: No Locat ion: [facility] S ource: EHR Enamel Burner brandon: N Practi ce ID: 0001 Daniel lable Time: 11:30:00 AM Rosi Henriquez MD [address], [place], [address], [facility] 14:47:52 Gestatio n less than 9 weeks [id number] Completed 201610/06/2020 Less than 8 weeks gestatio n of pregnanc y;Record ed Elsewher e: No Locat ion: [facility] S ource: EHR Enamel Burner brandon: N Practi ce ID: 0001 Daniel lable Time: 12:00:00 PM Rosi Henriquez MD [address], [place], [address], [facility] 14:48:35 Secondar y amenorrh ea [id number] Completed 201610/06/2020 Secondar y amenorrh ea;Pract ice ID: 0001 Rosi Henriquez MD [address], [place], [address], [facility] 14:49:30 Pregnanc y detectio n examinat ion Completed 201610/06/2020 Encounte r for pregnanc y test, result positive ;Practic e ID: 0001 Rosi Henriquez MD [address], [place], [address], [facility] 14:49:18 Hemorrha gic complica tion of pregnanc y [id number] Completed 201610/06/2020 Other hemorrha ge in early pregnanc y;Practi ce ID: 0001 Rosi Henriquez MD [address], [place], [address], [facility] 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 14:49:41 Vaginiti s in pregnanc y [id number] Completed 201610/06/2020 Infectio n oth prt genitl trct in pregnanc y, second trimeste r;Practi ce ID: 0001 Rosi Henriquez MD [address], [place], [address], [facility] 14:50:13 Gestatio n period, 14 weeks [id number] Completed 201610/06/2020 14 weeks gestatio n of pregnanc y;Practi ce ID: 0001 Rosi Henriquez MD [address], [place], [address], [facility] 14:48:33 Finding of trunk structur e Completed 201610/06/2020 Oth diseases and conditio ns compl preg/chl dbrth;Re corded Elsewher e: No Locat ion: [facility] S ource: EHR Enamel Burner brandon: N Practi ce ID: 0001 Daniel lable Time: 09:15:00 AM Rosi Henriquez MD [address], [place], [address], [facility] 1 14:49:56 Gestatio n period, 15 weeks [id number] Completed 201610/06/2020 15 weeks gestatio n of pregnanc y;Practi ce ID: 0001 Rosi Henriquez MD [address], [place], [address], [facility] 1 14:48:37 Antenata l screenin g for malforma tion Completed 201710/06/2020 Encounte r for antenata l screenin g for malforma tions;Re corded Elsewher e: No Locat ion: [facility] S ource: EHR Enamel Burner brandon: N Martinati ce ID: 0001 Daniel lable Time: 08:15:00 AM Rosi Henriquez MD [address], [place], [address], [facility] 1 14:48:01 Backache [id number] Completed 201710/06/2020 Back pain;Rec orded Elsewher e: No [facility] S [facility]: EHR Enamel Burner brandon: N Practi ce ID: 0001 Daniel lable Time: 09:30:00 AM Rosi Henriquez MD [address], [place], [address], [facility] 1 14:48:03 heart finding Completed 201710/06/2020 Abnlt in heart rate and rhythm comp labor and delivery ;Practic e ID: 0001 Rosi Henriquez MD [address], [place], [address], [facility] 14:48:31 Gestatio n period, 30 weeks [id number] Completed 201710/06/2020 30 weeks gestatio n of pregnanc y;Practi ce ID: 0001 Rosi Henriquez MD [address], [place], [address], [facility] 14:48:[address] Concept Completed 201710/06/2020 Decrease d movement s, third trimeste r, unsp;Pra ctice ID: 0001 Rosi Henriquez MD [address], [place], [address], [facility] 14:49:36 Gestatio n period, 31 weeks [id number] Completed 201710/06/2020 31 weeks gestatio n of pregnanc y;Practi ce ID: 0001 Rosi Henriquez MD [address], [place], [address], [facility] 14:48:41 Normal pregnanc y in multigra erwin [id number] Completed 201710/06/2020 Encounte r for suprvsn of normal pregnanc y, third trimeste r;Record ed Elsewher e: No Locat ion: [facility] S ource: EHR Enamel Burner brandon: N Martinati ce ID: 0001 Daniel lable Time: 02:30:00 PM Rosi Henriquez MD [address], [place], [address], [facility] 14:49:10 Gestatio n period, 32 weeks [id number] Completed 201710/06/2020 32 weeks gestatio n of pregnanc y;Practi ce ID: 0001 Rosi Henriquez MD [address], [place], [address], [facility] 04/14/202 1 14:48:43 Dizzines s and giddines s [id number] Completed 201710/06/2020 Dizzines s and giddines s;Practi ce ID: 0001 Rosi Henriquez MD [address], [place], [address], [facility] 14:48:24 Headache [id number] Completed 201710/06/2020 Headache ;Practic e ID: 0001 Rosi Henriquez MD [address], [place], [address], [facility] 14:48:49 Gestatio n period, 35 weeks [id number] Completed 201710/06/2020 35 weeks gestatio n of pregnanc y;Practi ce ID: 0001 Rosi Henriquez MD [address], [place], [address], [facility] 14:48:45 Umbilicu s finding Completed 201710/06/2020 Labor and delivery complica kit by oth cord comp, unsp;Pra ctice ID: 0001 Rosi Henriquez MD [address], [place], [address], [facility] 14:50:01 Gestatio n period, 38 weeks [id number] Completed 201710/06/2020 38 weeks gestatio n of pregnanc y;Practi ce ID: 0001 Rosi Henriquez MD [address], [place], [address], [facility] 14:48:47 Lochia finding Completed 201710/06/2020 Encounte r for routine postpart um follow-u p;Practi ce ID: 0001 Rosi Henriquez MD [address], [place], [address], [facility] 14:49:05 Ana ry postpart um mood disturba nce [id number] Completed 201710/06/2020 Postpart um mood disturba nce;Pio rded Elsewher e: No Locat ion: [facility] S ource: EHR Enamel Burner brandon: N Practi ce ID: 0001 Daniel lable Time: 02:45:00 PM Rosi Henriquez MD [address], [place], [address], [facility] 14:49:54 Screenin g for malignan t neoplasm of cervix Completed 201710/06/2020 Encounte r for screenin g for malignan t neoplasm of cervix;R ecorded Elsewher e: No Locat ion: [facility] S ource: EHR Enamel Burner brandon: N Practi ce ID: 0001 Daniel lable Time: 02:30:00 PM Rosi Henriquez MD [address], [place], [address], [facility] 14:49:28 Infectio n screenin g Completed 201710/06/2020 Encounte r for screenin g for oth infec/pa rastc diseases ;Recorde d Elsewher e: No Locat ion: [facility] S ource: EHR Enamel Burner brandon: N Practi ce ID: 0001 Daniel lable Time: 03:00:00 PM Rosi Henriquez MD [address], [place], [address], [facility] 14:48:55 Insertio n of intraute rine contrace ptive device Completed 201710/06/2020 Encounte r for insertio n of intraute rine contrace ptive device;P ractice ID: 0001 Rosi Henriquez MD [address], [place], [address], [facility] 14:48:59 Clinical finding Completed 201710/06/2020 Presence of (intraut erine) contrace ptive device;R ecorded Elsewher e: No Locat ion: Anna szymanski [facility] S ource: EHR Enamel Burner brandon: N Martinati ce ID: 0001 Daniel lable Time: 03:00:00 PM Rosi Henriquez MD [address], [place], [address], [facility] 1 14:48:08 Surveill ance of contrace ption Completed 201710/06/2020 Encounte r for surveill ance of contrace ptives, unspecif ied;Pio rded Elsewher e: No Locat ion: [facility] S ource: EHR Enamel Burner brandon: N Martinati ce ID: 0001 Daniel lable Time: 03:15:00 PM Rosi Henriquez MD [address], [place], [address], [facility] 1 14:49:48 Abnormal uterine bleeding [id number] 9100 Active 2017 Other specifie d abnormal uterine and vaginal bleeding ;Practic e ID: 0001 Not Available [facility] 0 18:21:17 Contrace ptive sheath status [id number] Completed 201710/06/2020 Encounte r for initial prescrip tion of other contrace ptives;P ractice ID: 0001 Rosi Henriquez MD [address], [place], [address], [facility] [address] 14:48:[address] Concept Completed 201710/06/2020 Encntr for general adult medical exam w/o abnormal findings ;Recorde d Elsewher e: No Locat ion: [facility] S ource: EHR Enamel Burner brandon: N Julio ce ID: 0001 Daniel lable Time: 02:30:00 PM Rosi Henriquez MD [address], [place], [address], [facility] 14:49:39 Contrace ption care manageme nt Completed 201810/06/2020 Encounte r for contrace ptive manageme nt, unspecif ied;Pio rded Elsewher e: No [facility] Enamel Burner brandon: N Martinati ce ID: 0001 Daniel lable Time: 08:45:00 AM Rosi Henriquez MD [address], [place], [address], [facility] 14:48:13 Cyst of ovary Completed 201810/06/2020 Ovarian cyst;Rec orded Elsewher e: No Locat ion: [facility] S ource: EHR Enamel Burner brandon: N Martinati ce ID: 0001 Daniel lable Time: 08:45:00 AM Rosi Henriquez MD [address], [place], [address], [facility] 14:48:17 Lesion of ovary Completed 201810/06/2020 Other ovarian cyst, left side;Pra ctice ID: 0001 Rosi Henriquez MD [address], [place], [address], [facility] 14:48:22 Pelvic and perineal pain [id number] Completed 201810/06/2020 Pelvic pain;Rec orded Elsewher e: No Locat ion: [facility] S ource: EHR Enamel Burner brandon: N Martinati ce ID: 0001 Daniel lable Time: 11:15:00 AM Rosi Henriquez MD [address], [place], [address], [facility] 14:49:12 Procedur e by method Completed 201810/06/2020 Encounte r for family planning advice NOS;Pio rded Elsewher e: No [facility] S ource: EHR Enamel Burner brandon: N Martinati ce ID: 0001 Daniel lable Time: 11:15:00 AM Rosi Henriquez MD [address], [place], [address], [facility] 14:48:26 Steriliz ation procedur e Completed 201810/06/2020 Encounte r for steriliz ation;Pr actice ID: 0001 Rosi Henriquez MD [address], [place], [address], [facility] 14:49:45 Procedur e on genitour inary system Completed 201810/06/2020 Encounte r for surgical aftercar e followin g surgery on the genitour inary system;R ecorded Elsewher e: No [facility] S ource: EHR Enamel Burner brandon: Padmaja Kim ce ID: 0001 Daniel lable Time: 11:30:00 AM Rosi Henriquez MD [address], [place], [address], [facility] 14:49:26 Postoper ative care Completed 201810/06/2020 Encounte r for surgical aftercar e followin g surgery on the genitour inary system;R ecorded Elsewher e: No Locat ion: Anna szymanski [facility] S ource: EHR Enamel Burner brandon: Padmaja Kim ce ID: 0001 Daniel lable Time: 11:30:00 AM Rosi Henriquez MD [address], [place], [address], [facility] 14:49:14 Acute vaginiti s [id number] Completed 201810/06/2020 Vaginiti s;Record ed Elsewher e: No Locat ion: Anna szymanski [facility] S ource: EHR Enamel Burner brandon: Padmaja Kim ce ID: 0001 Daniel lable Time: 08:30:00 AM Rosi Henriquez MD [address], [place], [address], [facility] 1 14:47:49 Sexually transmit kit infectio us disease [id number] Completed 201810/06/2020 STD;Pio rded Elsewher e: No Locat ion: [facility] S ource: EHR Enamel Burner brandon: N Practi ce ID: 0001 Daniel lable Time: 08:30:00 AM Rosi Henriquez MD [address], [place], [address], [facility] 1 14:49:32 Urinary tract infectio us disease [id number] Completed 201810/06/2020 UTI;Pio rded Elsewher e: No Locat ion: [facility] S ource: EHR Enamel Burner brandon: N Practi ce ID: 0001 Daniel lable Time: 08:30:00 AM Rosi Henriquez MD [address], [place], [address], [facility] 1 14:50:03 Herpetic vulvovag initis 34899025 Active 2018 Herpesvi ral vulvovag initis;R ecorded Elsewher e: No Locat ion: [facility] S ource: EHR Enamel Burner brandon: N Practi ce ID: 0001 Daniel lable Time: 10:15:00 AM Not Available [facility] 0 18:21:07 Body mass index 30+ - obesity 492024936 Active 2018 Body mass index (BMI) 34.0-34. 9, adult;Re corded Elsewher e: No Locat ion: [facility] S ource: EHR Enamel Burner brandon: N Practi ce ID: 0001 Daniel lable Time: 02:00:00 PM Not Available [facility] 0 18:21:06 Problem Notes None recorded. Procedures Surgical History Date Name Laterality Status Provider Name and Address Organization Details Recorded Time 01/01/20 19 Date of Last Pap Smear completed Margaret [facility] 10/06/2020 14:38:40 08/06/19 19 ligation of bilateral fallopian tubes completed Margaretmacho Jean Baptistevania [facility] 10/06/2020 14:34:56 06/25/19 03 Tonsillectomy completed Trisha Mcguire [facility] 02/24/2020 13:36:08 Imaging Results None recorded. Procedure Notes None recorded. Medical Equipment None Reported. Allergies Allergen ID Allergen Name Allergen Category Reaction Reaction Severity Criticality Documentation Date Start Date Code Code System Note Provider Name and Address Organization Details Recorded Time 1898 measles, mumps, rubella,a nd varicella live vaccine medicatio n Not available Not available Not available 02/24/2020 Trishasugar Mcguire [facility], [facility] 0 13:34:13 Medications Name Sig Start [...] Prescrib ed Elsewher e: No [facility] By: raymond zunigauntgiovana DateTime : 11/29/19 18 02:45:00 PM Not Available Not Available Not Available Metrogel Vaginal 0.75 % (37.5 mg/5 gram) insert 1 applicat orful by vaginal route every day at bedtime 12/04 completed Prescrib ed Elsewher e: No Locat ion: Anna szymanski [facility] odify By: brittni blake DateTime : [...] Prescrib ed Elsewher e: No [facility] By: raymond zunigauntgiovana DateTime : 02/12/20 18 03:15:00 PM Not Available Not Available Not Available trazodone 100 mg tablet TK 1 T PO QD HS 10/06 completed Not Available Not Available Not Available Flagyl 500 mg tablet take 1 tablet by oral route every 12 hours 07/24 completed Prescrib ed Elsewher e: No Locat ion: Anna szymanski [facility] odify By: denniskuhl E ncounter DateTime : 05/22/20 17 09:00:46 AM Not [...] Prescrib ed Elsewher e: No [facility] odify By: brittni blake DateTime : [...] Prescrib ed Elsewher e: No [facility] odify By: leslye Miranda ter DateTime : 06/20/20 18 02:30:00 PM Not Available Not Available Not Available NuvaRing 0.12 mg-0.015 mg/24 hr vaginal insert 1 vaginal ring by vaginal route every week continuo usly 08/13 completed Prescrib ed Elsewher e: No Locat ion: Anna szymanski [facility] odify By: leslye Miranda ter DateTime : 06/28/19 19 08:45:00 AM Not Available Not Available Not Available Zithromax 500 mg tablet take 2 tablet by oral route once 06/03 completed Prescrib ed Elsewher e: No Locat ion: Anna szymanski [facility] odify By: raymond zunigaunter DateTime : [...] Elsewher e: No Locat ion: Anna szymanski [facility] odify By: raymond zunigaunter DateTime : 03/19/20 18 01:30:00 PM Not Available Not Available Not Available nitrofura ntoin monohydra te/macroc rystals 100 mg capsule 10/06 completed Not Available Not Available Not Available Nexplanon 68 mg subdermal implant 10/31 completed Prescrib ed Elsewher e: Yes Loca tion: Anna szymanski [facility] odify By: brittni blake DateTime : 10/28/19 14 10:00:00 AM Not Available Not Available Not Available [employer] SHIPPER-PNV-DH A 28 mg iron-1 mg-200 mg capsule take 1 capsule by oral route every day 06/03 completed Prescrib ed Elsewher e: No Locat ion: [facility] odify By: miltonnelli John ncounter DateTime : 05/02/20 17 10:49:43 AM Not Available Not Available Not Available 19 29 mg iron-1 mg chewable tablet chew 1 tablet by oral route every day 10/23 completed Prescrib ed Elsewher e: No Locat ion: [facility] odify By: amrosa Szymanski ncounter DateTime : 03/07/20 13 01:19:00 PM Not Available Not Available Not Available Aurovela Fe 1-20 (28) 1 mg-20 mcg (21)/75 mg (7) tablet TAKE 1 TABLET BY MOUTH EVERY DAY active Not Available Not Available No t Available Vitals Date Recorded Body height Body mass index (BMI) Body weight Systolic And Diastolic Provider Name and Address Organization Details Last Updated DateTime 10/06/2020 170.18 cm 36.2 kg/m2 889486.84 g 123/88 mm[Hg] [facility] 10/06/2020 14:41:29 Social History None recorded. Functional Status Question Answer Note LastModified by Organizat ion Details LastModified Time Do you use any illicit or recreational drugs? No Information not available 10/06/2020 What is your level of alcohol consumption? None Information not available 10/06/2020 Mental Status None recorded. Family History Relationship Description Onset Age of this Age Resolved Age Notes LastModified by Organization Details LastModified Time Sister Asthma [email or web address] Not available 13:39:26 Notes:Sister: Asthma Medical History Condition Response Allergies (Food, seasonal, environmental ) N Other N Breast Cancer N Drug/Latex Allergies/Reactions N Blood Transfusion N Dermatologic Disorders N Lung Disease N Defects or Inherited Disease N Breast Problem N Gestational Diabetes N Hematologic disorders N Anesthesia Complications N History of STI Y Deep Vein Thrombosis N Polycystic ovary syndrome N Anxiety Disorder N Autoimmune disease N Arthritis N Infertility N Polyps N Acid Reflux (GERD) N History of abnormal pap N Cancer N Stroke N Varicosities N Neurologic/Epilepsy N Endometriosis N High Cholesterol N Headaches N Fibromyalgia N Kidney Disease N Heart Problems N Kidney or Bladder Problems N Thyroid Problems N GI Problems N Eating Disorder [...] Diagnosis SNOMED-CT Code Diagnosis ICD10 Code Diagnosis IMO Codes Diagnosis Note [id number] Rosi Henriquez MD [place] [address] [address] 10/06/2020 14:27:10 10/06/2020 15:48:34 Menometrorrhagia 053941632 N92.1 Body mass index 30+ - obesity 061008181 Z68.36 Health Concerns Section Related Observation LastModified by Organization Detai ls LastModified Time None Recorded Concern Status LastModified by Organization Details LastModified Time None Recorded Advance Directives Directive None Recorded Payers Insurance Date Sequence Insurance Name Policy Number Policy Lawrence Covered Member ID Lawrence Member ID Guarantor Name 12/26/2020 1 [facility] (MEDICAID HMO) [id number] Sandra Perdomo [id number] Sandra Perdomo 03/18/2020 *SELF PAY* As marjorie Perdomo Notes Date Note Type Note Provider [...] 12/2018 Rosi Henriquez MD [address], [place], [address], [place] [facility] 10/06/2020 15:44:42 OBGyn Episode Ob Episode Information Episode Created Date Number of Fetuses Patient Bloodtype Patient rh Status Prepregnancy Weight lbs Domestic Partner Domestic Partner Phone Father Name Traffic Expert Status 10/07/19 21 1 CLOSED Fetus Data [...] Domestic Partner Domestic Partner Phone Father Name Traffic Expert Status 10/07/19 21 1 CLOSED Fetus Data [...]
[2025-06-14 15:28] VITALS: BP 139/84; PULSE 113; RESP 16; TEMP 36.6; O2SAT 100
--- NOTE | 2025-06-14 16:00 | ED_ITS ---
HPI - URI/Sore Throat General Chief Complaint: Upper Respiratory Infection Stated Complaint: Left Ear Pain Time Seen by Provider: 06/14/25 16:00 Source: patient, RN notes reviewed and old records reviewed Mode of arrival: ambulatory Limitations: no limitations History of Present Illness HPI Narrative: 30 year old female who presents to [facility] care with complaints of left ear pain for the past 3 days with some sinus congestion and drainage with productive cough of yellow phlegm noted. Patient also states history of Gerd and states that it feels like a ball in her throat with no sore throat voiced. Patient reports no fevers, chills or sweats,denies any body aches. 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 MD elicited complaint: rhinorrhea, nasal congestion and other (left ear pain) Onset (ago): day(s) (3) Pain scale (0-10): 6 Able to tolerate fluids by mouth: Yes Treatments prior to arrival: other (TUMS) Related Data Home Medications ?Medication ?Instructions ?Recorded ?Confirmed ?Last Taken ?Type clonidine HCl 0.1 mg mg PO 06/14/25 Unknown Hist ory tablet,extended release,12 hr dextroamphetamine-amphetamine 20 06/14/25 Unknown Hi story mg tablet norethindrone 1.5 mg-ethinyl tablet 06/14/25 Unknown History estradiol 30 mcg(21)/iron 75 mg(7) tablet (Junel FE 1.5/30 (28)) quetiapine 25 mg tablet mg 06/14/25 Unknown History topiramate 25 mg tablet mg 06/14/25 Unknown History Allergies Allergy/AdvReac Type Severity Reaction Status Date / Time measles, mumps, and rubella Allergy Severe Swelling Verified 06/14/25 15:36 vaccine lamotrigine Allergy Intermediate Rash Verified 06/14/25 15:36 latex Allergy Intermediate Rash Verified 06/14/25 15:36 Review of Systems Review of Systems: CONSTITUTIONAL: reports some malaise, no chills, sweats, or fever. EYES: Denies visual changes, redness, or discharge. ENT: Reports rhinorrhea, congestion, sinus pain, left otalgia and no sore throat. CARDIOVASCULAR: Denies chest pain, palpitations, or edema. RESPIRATORY: Reports productive cough with yellow phlegm.? Denies dyspnea. GASTROINTESTINAL: Denies abdominal pain, nausea, vomiting, diarrhea reports history of GERD states feel like ball in her throat. SKIN: Denies rash or itching. MUSCULOSKELETAL: Denies myalgia. NEUROLOGIC: Denies headache. All systems reviewed & are unremarkable except as noted in HPI and below PMFSH Past Medical History Medical History GERD (gastroesophageal reflux disease) ADHD (attention deficit hyperactivity disorder) Knee effusion Anxiety and depression Sinusitis Surgical History Surgical History History of tonsillectomy Tubal ligation status Family History Family History Mother Family history non-contributory Social History Social History Smoking status: Former smoker Tobacco type: cigarettes Smoking end date: 06/25/19 Substance use: never Living arrangements: with family Gender identity (if verbalized by the patient): Female Sexual Orientation (if Verbalized by the Patient): Straight or Heterosexual Spiritual care concerns: No Comments At time of signature, agree with nursing past medical, surgical, social and family history. There is no relevant family history pertinent to the presenting complaint Exam Narrative: GENERAL: Well-appearing, well-nourished, and in no acute distress. HEAD: Normocephalic EYES: PERRLA, conjunctivae clear ENT: Nares clear, turbinates edematous and erythematous, clear discharge. Mucous membranes moist. TM pearly jefferson with dull light reflex bilaterally; no tragal tenderness. Oropharynx erythematous without lesions. Tonsils not present and throat without exudate, no drooling, no hoarseness, no trismus, uvula midline.post nasal discharge noted NECK: Supple. No lymphadenopathy CHEST: Clear to auscultation, breath sounds equal. No wheezing, rhonchi, rales, or stridor. No respiratory distress, speaks in full sentences.productive cough, SAO2 100% on room air HEART: Regular rate and rhythm. No murmur heard. SKIN: Warm, dry, no rash. NEURO: Alert and oriented x3. PSYCH: Normal mood and affect Course Course Level of Care: Express Care Visit Vital Signs Vital signs: Vital Signs Temperature 36.6 C 06/14/25 15:28 Pulse Rate 113 H 06/14/25 15:28 Respiratory Rate 16 06/14/25 15:28 Blood Pressure 139/84 06/14/25 15:28 Pulse Oximetry 100 06/14/25 15:28 Oxygen Delivery Room Air 06/14/25 15:28 Temperature 36.6 C 06/14/25 15:28 Pulse Rate 113 H 06/14/25 15:28 Respiratory Rate 16 06/14/25 15:28 Blood Pressure 139/84 06/14/25 15:28 Pulse Oximetry 100 06/14/25 15:28 Oxygen Delivery Room Air 06/14/25 15:28 reviewed MDM MDM Narrative Medical decision making narrative: Patient presents with URI symptoms and left ear pain and GERD symptoms. Patient diagnosed with GERD and medications sent to patient' s pharmacy. URI symptoms recommended OTC medication to treat symptoms. Patient agrees with POC, Anticipatory guidance and reasons to seek care in ED reviewed with [atient with understanding voiced. Differential Diagnosis Differential Diagnosis: Differential diagnostic considerations for upper respiratory infection include upper respiratory infection, croup, otitis media, sinusitis, viral infection, bronchitis, influenza, pharyngitis, strep, uvulitis.?GERD Critical Care Time Critical Care Time Critical Care Time: No Discharge Plan Discharge Clinical Impression: GERD without esophagitis URI (upper respiratory infection) Qualifiers: URI type: unspecified URI Qualified Code(s): J06.9 - Acute upper respiratory infection, unspecified Patient Disposition: Home Condition: Stable Instructions: Antibiotic Form, Diet for Stomach Ulcers and Gastritis (ED), Upper Respiratory Infection (ED), GERD (Gastroesophageal Reflux Disease) (ED) Additional Instructions: Protonix daily for acid reflux Avoid fried, greasy, fatty, fried foods Avoid caffeine, nicotine, and alcohol Return to your regular diet in the next 3-4 days Medication as directed for nausea and vomiting Tylenol only for pain Sometimes ibuprofen/Aleve can cause increased stomach upset Follow-up with her PCP if continued problems or uncontrolled pain information physicians available in the area given to patient Follow-up with PCP in 7-10 days or sooner if needed Follow up with PCP soon in regards to your blood pressure which is elevated above threshold for referral. Blood pressure above 120/80 may indicate pre- hypertension.139/84 Patient Language: Belarusian Prescriptions: New pantoprazole [Protonix] 20 mg tablet,delayed release (DR/EC) 20 mg PO HS 28 Days Qty: 28 0RF No Action quetiapine 25 mg tablet norethindrone-e.estradiol-iron [5/ (28)] 1.5 mg-30 mcg (21)/75 mg (7) tablet topiramate 25 mg tablet dextroamphetamine-amphetamine 20 mg tablet clonidine HCl 0.1 mg tablet extended release 12 hr PO Follow-up/Referrals: PHYSICIAN,BATHING SUIT MAKER [Primary Care Provider, Internal Medicine] Stand Alone Forms: Work/School Release IP Time of Disposition: 16:18 Quality [place] Coma Scale Eyes: Open Verbal: Oriented and Alert Motor: Follows Commands Nika Coma Total Score: 15
== END 2025-06-14 16:28 | disposition home or self-care (01) ==
PROVIDERS: Emergency Provider Registered Nurse
DX: K21.9 Gastro-esophageal reflux disease without esophagitis (principal); J06.9 Acute upper respiratory infection, unspecified; F90.9 Attention-deficit hyperactivity disorder, unspecified type; F41.9 Anxiety disorder, unspecified; F32.A Depression, unspecified; Z87.891 Personal history of nicotine dependence
CPT/HCPCS: 99213; G0463

== ENCOUNTER 2025-06-19 11:50 | Emergency (ER) | payer OTHER, SELFPAY ==
--- OUTSIDE RECORDS SUMMARY | 2025-06-19 11:55 | XMS_ITS | Data Portability ---
Author Organization [facility] [place] Address [address] [place] [address] Assessment Encounter Date Assessment Date Assessment LastModified by Organization Details LastModified Time 10/06/2020 10/06/2020 PCOS labs, A1C, TSH US to be scheduled discussed ocp to regulate bleeding, pt desires Discussed the usage, side effects, risks, and benefits of OCP use. Questions answered. Prescription given for microgestin. She will start OCP with next menses WWE and med check 3 mos [id number] Not available 10/06/2020 15:44:25 Plan of Treatment Reminders Order Date Submit Date Provider Last Modified By Organization Details Last Modified Time Details Appointments None recorded. Lab testosteron e, free + total, serum 2020 [facility] (Lab), [address] [place], [address], 10:47:42 dhea-sulfat e, serum 2020 [facility] (Lab), [address] [place], [address], 17:24:19 estradiol, serum 2020 [facility] (Lab), [address] [place], [address], 17:24:17 FSH (follicle-s timulating hormone), serum 2020 [facility] (Lab), [address], [place], [address], 1 17:24:18 HbA1c (hemoglobin A1c), blood 2020 [facility] (Lab), [address], [place], [address], 1 17:24:17 prolactin, serum 2020 [facility] (Lab), [address], [place], [address], 1 17:24:18 TSH, serum or plasma 2020 [facility] (Lab), [address], [place], [address], 1 17:24:18 testosteron e free/testos terone total, ratio, serum 2020 [facility] (Lab), [address], [place], [address], 1 17:24:19 Referral None recorded. Procedures None recorded. Surgeries None recorded. Imaging None recorded. Medication Orders Microgestin FE 07/14 (28) 1 mg-20 mcg (21)/75 mg (7) tablet 2020 [id number], [address], [place], [place], [id number], 15:01:27 Patient TargetsNo targets recorded. Patient InstructionsNo [...] >8.0% Actio n sugge sted Not Available [facility] (Lab) [address], [place], [address], 10/12/2020 17:24:17 10/07/19 21 10/06/2020 estra diol, serum estradiol 53.9 pg/mL This assay was perfo rmed using [employer] ratio n reage nts and test kits. Value s obtai terese with other assay metho ds or kits canno t be used [facility] . Femal e Estra diol Range s: Folli cular phase 12.4- 233 pg/mL Ovula tion phase 41.0- 398 pg/mL Lutea l phase 22.3- 341 pg/mL Postm enopa usal< 5-138 pg/mL Healt hy Pregn ant Women 1st Trime ster1 54-32 43 pg/mL 2nd Trime ster1 561-2 1280 pg/mL 3rd Trime ster8 525-> 04683 pg/mL Not Available [facility] (Lab) [address] [place], [address], 10/12/2020 17:24:17 10/07/19 21 10/06/2020 FSH (foll [...] use: 25.8- 134.8 mIU/m L Not Available [facility] (Lab) [address], [place], [address], 10/12/2020 17:24:18 10/07/19 21 10/06/2020 TSH, serum or plasm a TSH 0.83 uIU/m L 0.30-5 .00 Not Available [facility] (Lab) [address], [place], [address], 10/12/2020 17:24:18 10/07/19 21 10/06/2020 prola ctin, serum prolactin, total 3.45 NG/mL 4.79-2 3.30 low This assay was perfo rmed using [employer] ratio n reage nts and test kits. Value s obtai terese with other assay metho ds or kits canno t be used inter cai eably . Not Available [facility] (Lab) [address], [place], [address], 10/12/2020 17:24:18 10/07/19 21 10/06/2020 dhea- sulfa te, serum DHEA-sulfate 305 ug/dL (based on docume nted legal sex) 148-40 7 Not Available [facility] (Lab) [address] [place], [address], 10/12/2020 17:24:19 10/07/19 21 10/06/2020 testo stero [...] stics have been deter mined by [employer]. It has not been clear ed or appro jesus by the FDA. This assay has been valid ated pursu ant to the CLIA regul ation s and is used for clini beatriz purpo ses. Not Available [facility] (Lab) [address], [place], [address], 10/12/2020 17:24:19 10/07/19 21 10/06/2020 testo stero [...] Infor lars n: Site ID: [id number] Name: [facility] Addre ss: [id number] [place] [address] Dire tor: Leonardo kearney M.D. Not Available [facility] (Lab) [address], [place], [address], 10/12/2020 17:24:19 Result Notes None recorded. Problems Name Problem SNOMED Code Status Onset Date Resolution Date Notes Provider Name and Address Organization Details Recorded Time Uterine size for dates discrepa nhy [id number] Completed 201210/06/2020 UTERINE SIZE VON-ANTE PAR;Pio rded Elsewher e: No Locat ion: Anna szymanski [facility] S ource: EHR Cardiopulmonary Technician brandon: N Practi ce ID: 0001 Daniel lable Time: 05:00:00 PM Rosi Henriquez MD [address], [place], [address], [place] [facility] 14:50:06 Threaten ed miscarri age [id number] Completed 201210/06/2020 Threaten ed , antepart um;Recor ded Elsewher e: No Locat ion: [facility] S ource: EHR Cardiopulmonary Technician brandon: N Practi ce ID: 0001 Daniel lable Time: 02:30:00 PM Rosi Henriquez MD [address], [place], [address], [facility] 14:49:52 Speciali zed medical examinat ion Completed 201210/06/2020 Routine gynecolo gical examinat ion;Prac christina ID: 0001 Rosi Henriquez MD [address], [place], [address], [facility] 14:49:43 Primigra erwin [id number] Completed 201210/06/2020 Supervis ion of normal first pregnanc y;Record ed Elsewher e: No Locat ion: [facility] S ource: EHR Cardiopulmonary Technician brandon: N Practi ce ID: 0001 Daniel lable Time: 01:30:00 PM Rosi Henriquez MD [address], [place], [address], [facility] 14:49:22 Ultrason ography Completed 201210/06/2020 Antenata l screenin g for malforma tion using ultrason ics;Pio rded Elsewher e: No Locat ion: [facility] S ource: EHR Cardiopulmonary Technician brandon: N Practi ce ID: 0001 Daniel lable Time: 01:00:00 PM Rosi Henriquez MD [address], [place], [address], [facility] 14:49:59 Antenata l screenin g Completed 201210/06/2020 Antenata l screenin g for malforma tion using ultrason ics;Pio rded Elsewher e: No Locat ion: [facility] S ource: EHR Cardiopulmonary Technician brandon: N Practi ce ID: 0001 Daniel lable Time: 01:00:00 PM Rosi Henriquez MD [address], [place], [address], [facility] 14:47:54 Congenit al malforma tion [id number] Completed 201210/06/2020 Antenata l screenin g for malforma tion using ultrason ics;Pio rded Elsewher e: No Locat ion: [facility] S ource: EHR Cardiopulmonary Technician brandon: N Practi ce ID: 0001 Daniel lable Time: 01:00:00 PM Rosi Henriquez MD [address], [place], [address], [facility] 14:48:11 Vaginal abnormal ity complica ting antenata l care - baby not yet delivere d [id number] Completed 201310/06/2020 Congenit al or acquired abnormal ity of vagina, antepart um conditio n or complica tion;Pra ctice ID: 0001 Rosi Henriquez MD [address], [place], [address], [facility] 14:50:10 Labor and delivery complica kit by heart rate anomaly [id number] Completed 201310/06/2020 HEART RATE NON REASSURI NG;Pract ice ID: 0001 Rosi Henriquez MD [address], [place], [address], [facility] 14:49:04 Delivery normal [id number] Completed 201310/06/2020 Normal delivery ;Practic e ID: 0001 Rois Henriquez MD [address], [place], [address], [facility] 14:48:19 Single live from singleto n pregnanc y [id number] Completed 201310/06/2020 Mother with single liveborn ;Practic e ID: 0001 Rosi Henriquez MD [address], [place], [address], [facility] 14:49:37 Pregnanc y test negative [id number] Completed 201310/06/2020 Pregnanc y examinat ion or test, negative result;R ecorded Elsewher e: No Locat ion: [facility] S ource: EHR Cardiopulmonary Technician brandon: N Martinati ce ID: 0001 Daniel lable Time: 03:30:00 PM Rosi Henriquez MD [address], [place], [address], [facility] 14:49:20 Postpart um care Completed 201310/06/2020 Post Followup ;Recorde d Elsewher e: No Locat ion: [facility] S ource: EHR Cardiopulmonary Technician brandon: N Julio ce ID: 0001 Daniel lable Time: 03:30:00 PM Rosi Henriquez MD [address], [place], [address], [facility] 14:49:16 Implanta tion of subcutan eous contrace ptive Completed 201310/06/2020 Insertio n of implanta ble subderma l contrace ptive;Re corded Elsewher e: No Locat ion: [facility] S ource: EHR Cardiopulmonary Technician brandon: N Martinati ce ID: 0001 Daniel lable Time: 10:17:00 AM Rosi eHnriquez MD [address], [place], [address], [facility] 14:49:01 Procedur e Completed 201610/06/2020 Enctr srvlnc implanta ble subderma l contrace ptive;Pr actice ID: 0001 Rosi Henriquez MD [address], [place], [address], [facility] 14:49:24 Syphilis test finding [id number] Completed 201610/06/2020 Encntr screen for infectio ns w sexl mode of transmis s;Record ed Elsewher e: No Locat ion: [facility] S ource: EHR Cardiopulmonary Technician brandon: N Practi ce ID: 0001 Daniel lable Time: 12:00:00 PM Rosi Henriquez MD [address], [place], [address], [facility] 14:49:50 Amenorrh ea [id number] Completed 201610/06/2020 Amenorrh ea;Recor ded Elsewher e: No Locat ion: [facility] S ource: EHR Cardiopulmonary Technician brandon: N Practi ce ID: 0001 Daniel lable Time: 11:30:00 AM Rosi Henriquez MD [address], [place], [address], [facility] 14:47:52 Gestatio n less than 9 weeks [id number] Completed 201610/06/2020 Less than 8 weeks gestatio n of pregnanc y;Record ed Elsewher e: No Locat ion: [facility] S ource: EHR Cardiopulmonary Technician brandon: N Practi ce ID: 0001 Daniel lable Time: 12:00:00 PM Rosi Henriquez MD [address], [place], [address], [facility] 14:48:35 Secondar y amenorrh ea [id number] Completed 201610/06/2020 Secondar y amenorrh ea;Pract ice ID: 0001 Rosi Henriquez MD [address], [place], [address], [facility] 14:49:30 Pregnanc y detectio n examinat ion Completed 201610/06/2020 Encounte r for pregnanc y test, result positive ;Practic e ID: 0001 Rosi Henriquez MD [address], [place], [address], [facility] 14:49:18 Hemorrha gic complica tion of pregnanc y [id number] Completed 201610/06/2020 Other hemorrha ge in early pregnanc y;Practi ce ID: 0001 Rosi Henriquez MD [address], [place], [address], [facility] 14:48:[address] Concept Completed 201610/06/2020 Encntr for perinatal instructor exam (general ) (routine ) w/o abn findings ;Recorde d Elsewher e: No Locat ion: [facility] S ource: EHR Cardiopulmonary Technician brandon: N Practi ce ID: 0001 Daniel lable Time: 08:45:00 AM Rosi Henriquze MD [address], [place], [address], [facility] 14:49:41 Vaginiti s in pregnanc y [id number] Completed 201610/06/2020 Infectio n oth prt genitl trct in pregnanc y, second trimeste r;Practi ce ID: 0001 Rosi Henriquez MD [address], [place], [address], [facility] 14:50:13 Gestatio n period, 14 weeks [id number] Completed 201610/06/2020 14 weeks gestatio n of pregnanc y;Practi ce ID: 0001 Rosi Henriquez MD [address], [place], [address], [facility] 14:48:33 Finding of trunk structur e Completed 201610/06/2020 Oth diseases and conditio ns compl preg/chl dbrth;Re corded Elsewher e: No Locat ion: [facility] S ource: EHR Cardiopulmonary Technician brandon: N Practi ce ID: 0001 Daniel lable Time: 09:15:00 AM Rosi Henriquez MD [address], [place], [address], [facility] 1 14:49:56 Gestatio n period, 15 weeks [id number] Completed 201610/06/2020 15 weeks gestatio n of pregnanc y;Practi ce ID: 0001 Rosi Henriquez MD [address], [place], [address], [facility] 1 14:48:37 Antenata l screenin g for malforma tion Completed 201710/06/2020 Encounte r for antenata l screenin g for malforma tions;Re corded Elsewher e: No Locat ion: [facility] S ource: EHR Cardiopulmonary Technician brandon: N Martinati ce ID: 0001 Daniel lable Time: 08:15:00 AM Rosi Henriquez MD [address], [place], [address], [facility] 1 14:48:01 Backache [id number] Completed 201710/06/2020 Back pain;Rec orded Elsewher e: No [facility]at ion[facility] S ource: EHR Cardiopulmonary Technician brandon: N Practi ce ID: 0001 Daniel lable Time: 09:30:00 AM Rosi Henriquez MD [address], [place], [address], [facility] 1 14:48:03 heart finding Completed 201710/06/2020 Abnlt in heart rate and rhythm comp labor and delivery ;Practic e ID: 0001 Rosi Henriquez MD [address], [place], [address], [facility] 14:48:31 Gestatio n period, 30 weeks [id number] Completed 201710/06/2020 30 weeks gestatio n of pregnanc y;Practi ce ID: 0001 Rosi Henriquez MD [address], [place], [address], [facility] 14:48:[address] Concept Completed 201710/06/2020 Decrease d movement s, third trimeste r, unsp;Pra ctice ID: 0001 Rosi Henriquez MD [address], [place], [address], [facility] 14:49:36 Gestatio n period, 31 weeks [id number] Completed 201710/06/2020 31 weeks gestatio n of pregnanc y;Practi ce ID: 0001 Rosi Henriquez MD [address], [place], [address], [facility] 14:48:41 Normal pregnanc y in multigra erwin [id number] 04975 Completed 201710/06/2020 Encounte r for suprvsn of normal pregnanc y, third trimeste r;Record ed Elsewher e: No Locat ion: [facility] S ource: EHR Cardiopulmonary Technician brandon: N Martinati ce ID: 0001 Daniel lable Time: 02:30:00 PM Rosi Henriquez MD [address], [place], [address], [facility] 14:49:10 Gestatio n period, 32 weeks [id number] Completed 201710/06/2020 32 weeks gestatio n of pregnanc y;Practi ce ID: 0001 Rosi Henriquez MD [address], [place], [address], [facility] 04/14/202 1 14:48:43 Dizzines s and giddines s [id number] Completed 201710/06/2020 Dizzines s and giddines s;Practi ce ID: 0001 Rosi Henriquez MD [address], [place], [address], [facility] 14:48:24 Headache [id number] Completed 201710/06/2020 Headache ;Practic e ID: 0001 Rosi Henriquez MD [address], [place], [address], [facility] 14:48:49 Gestatio n period, 35 weeks [id number] Completed 201710/06/2020 35 weeks gestatio n of pregnanc y;Practi ce ID: 0001 Rosi Henriquez MD [address], [place], [address], [facility] 14:48:45 Umbilicu s finding Completed 201710/06/2020 Labor and delivery complica kit by oth cord comp, unsp;Pra ctice ID: 0001 Rosi Henriquez MD [address], [place], [address], [facility] 14:50:01 Gestatio n period, 38 weeks [id number] Completed 201710/06/2020 38 weeks gestatio n of pregnanc y;Practi ce ID: 0001 Rosi Henriquez MD [address], [place], [address], [facility] 14:48:47 Lochia finding Completed 201710/06/2020 Encounte r for routine postpart um follow-u p;Practi ce ID: 0001 Rosi Henriquez MD [address], [place], [address], [facility] 14:49:05 Ana ry postpart um mood disturba nce [id number] Completed 201710/06/2020 Postpart um mood disturba nce;Pio rded Elsewher e: No Locat ion: [facility] S ource: EHR Cardiopulmonary Technician brandon: N Practi ce ID: 0001 Daniel lable Time: 02:45:00 PM Rosi Henriquez MD [address], [place], [address], [facility] 14:49:54 Screenin g for malignan t neoplasm of cervix Completed 201710/06/2020 Encounte r for screenin g for malignan t neoplasm of cervix;R ecorded Elsewher e: No Locat ion: [facility] S ource: EHR Cardiopulmonary Technician brandon: N Practi ce ID: 0001 Daniel lable Time: 02:30:00 PM Rosi Henriquez MD [address], [place], [address], [facility] 14:49:28 Infectio n screenin g Completed 201710/06/2020 Encounte r for screenin g for oth infec/pa rastc diseases ;Recorde d Elsewher e: No Locat ion: [facility] S ource: EHR Cardiopulmonary Technician brandon: N Practi ce ID: 0001 Daniel lable Time: 03:00:00 PM Rosi Henriquez MD [address], [place], [address], [facility] 14:48:55 Insertio n of intraute rine contrace ptive device Completed 201710/06/2020 Encounte r for insertio n of intraute rine contrace ptive device;P ractice ID: 0001 Rosi Henriquez MD [address], [place], [address], [facility] 14:48:59 Clinical finding Completed 201710/06/2020 Presence of (intraut erine) contrace ptive device;R ecorded Elsewher e: No Locat ion: Anna szymanski [facility] S ource: EHR Cardiopulmonary Technician brandon: N Martinati ce ID: 0001 Daniel lable Time: 03:00:00 PM Rosi Henriquez MD [address], [place], [address], [facility] 1 14:48:08 Surveill ance of contrace ption Completed 201710/06/2020 Encounte r for surveill ance of contrace ptives, unspecif ied;Pio rded Elsewher e: No Locat ion: [facility] S ource: EHR Cardiopulmonary Technician brandon: N Martinati ce ID: 0001 Daniel lable Time: 03:15:00 PM Rosi Henrqiuez MD [address], [place], [address], [facility] 1 14:49:48 Abnormal uterine bleeding [id number] 9100 Active 2017 Other specifie d abnormal uterine and vaginal bleeding ;Practic e ID: 0001 Not Available [facility] 0 18:21:17 Contrace ptive sheath status [id number] Completed 201710/06/2020 Encounte r for initial prescrip tion of other contrace ptives;P ractice ID: 0001 Rosi Henriquez MD [address], [place], [address], [facility] [address] 14:48:[address] Concept Completed 201710/06/2020 Encntr for general adult medical exam w/o abnormal findings ;Recorde d Elsewher e: No Locat ion: [facility] S ource: EHR Cardiopulmonary Technician brandon: N Julio ce ID: 0001 Daniel lable Time: 02:30:00 PM Rosi Henriquez MD [address], [place], [address], [facility] 14:49:39 Contrace ption care manageme nt Completed 201810/06/2020 Encounte r for contrace ptive manageme nt, unspecif ied;Pio rded Elsewher e: No [facility]: EHR Cardiopulmonary Technician brandon: N Martinati ce ID: 0001 Daniel lable Time: 08:45:00 AM Rosi Henriquez MD [address], [place], [address], [facility] 14:48:13 Cyst of ovary Completed 201810/06/2020 Ovarian cyst;Rec orded Elsewher e: No Locat ion: [facility] S ource: EHR Cardiopulmonary Technician brandon: N Martinati ce ID: 0001 Daniel lable Time: 08:45:00 AM Rosi Henriquez MD [address], [place], [address], [facility] 14:48:17 Lesion of ovary Completed 201810/06/2020 Other ovarian cyst, left side;Pra ctice ID: 0001 Rosi Henriquez MD [address], [place], [address], [facility] 14:48:22 Pelvic and perineal pain [id number] Completed 201810/06/2020 Pelvic pain;Rec orded Elsewher e: No Locat ion: [facility] S ource: EHR Cardiopulmonary Technician brandon: N Martinati ce ID: 0001 Daniel lable Time: 11:15:00 AM Rosi Henriquez MD [address], [place], [address], [facility] 14:49:12 Procedur e by method Completed 201810/06/2020 Encounte r for family planning advice NOS;Pio rded Elsewher e: No Locat ion: [facility] S ource: EHR Cardiopulmonary Technician brandon: N Martinati ce ID: 0001 Daniel lable Time: 11:15:00 AM Rosi Henriquez MD [address], [place], [address], [facility] 14:48:26 Steriliz ation procedur e Completed 201810/06/2020 Encounte r for steriliz ation;Pr actice ID: 0001 Rosi Henriquez MD [address], [place], [address], [facility] 14:49:45 Procedur e on genitour inary system Completed 201810/06/2020 Encounte r for surgical aftercar e followin g surgery on the genitour inary system;R ecorded Elsewher e: No Locat ion: [facility] S ource: EHR Cardiopulmonary Technician brandon: Padmaja Kim ce ID: 0001 Daniel lable Time: 11:30:00 AM Rosi Henriquez MD [address], [place], [address], [facility] 14:49:26 Postoper ative care Completed 201810/06/2020 Encounte r for surgical aftercar e followin g surgery on the genitour inary system;R ecorded Elsewher e: No Locat ion: Anna szymanski [facility] S ource: EHR Cardiopulmonary Technician brandon: Padmaja Kim ce ID: 0001 Daniel lable Time: 11:30:00 AM Rosi Henriquez MD [address], [place], [address], [facility] 14:49:14 Acute vaginiti s [id number] Completed 201810/06/2020 Vaginiti s;Record ed Elsewher e: No Locat ion: Anna szymanski [facility] S ource: EHR Cardiopulmonary Technician brandon: Padmaja Kim ce ID: 0001 Daniel lable Time: 08:30:00 AM Rosi Henriquez MD [address], [place], [address], [facility] 1 14:47:49 Sexually transmit kit infectio us disease [id number] Completed 201810/06/2020 STD;Pio rded Elsewher e: No Locat ion: [facility] S ource: EHR Cardiopulmonary Technician brandon: N Practi ce ID: 0001 Daniel lable Time: 08:30:00 AM Rosi Henriquez MD [address], [place], [address], [facility] 1 14:49:32 Urinary tract infectio us disease [id number] Completed 201810/06/2020 UTI;Pio rded Elsewher e: No Locat ion: [facility] S ource: EHR Cardiopulmonary Technician brandon: N Practi ce ID: 0001 Daniel lable Time: 08:30:00 AM Rosi Henriquez MD [address], [place], [address], [facility] 1 14:50:03 Herpetic vulvovag initis [id number] Active 2018 Herpesvi ral vulvovag initis;R ecorded Elsewher e: No Locat ion: [facility] S ource: EHR Cardiopulmonary Technician brandon: N Practi ce ID: 0001 Daniel lable Time: 10:15:00 AM Not Available [facility] 0 18:21:07 Body mass index 30+ - obesity [id number] Active 2018 Body mass index (BMI) 34.0-34. 9, adult;Re corded Elsewher e: No Locat ion: [facility] S ource: EHR Cardiopulmonary Technician brandon: N Practi ce ID: [id number] Daniel lable Time: 02:00:00 PM Not Available [employer] 0 18:21:06 Problem Notes None recorded. Procedures Surgical History Date Name Laterality Status Provider Name and Address Organization Details Recorded Time 01/01/20 19 Date of Last Pap Smear completed Margaret [facility] 10/06/2020 14:38:40 08/06/19 19 ligation of bilateral fallopian tubes completed Margaretmacho Jean Baptistevania [facility] 10/06/2020 14:34:56 06/25/19 03 Tonsillectomy completed Trisha Mcguire [facility] 02/24/2020 13:36:08 Imaging Results None recorded. Procedure Notes None recorded. Medical Equipment None Reported. Allergies Allergen ID Allergen Name Allergen Category Reaction Reaction Severity Criticality Documentation Date Start Date Code Code System Note Provider Name and Address Organization Details Recorded Time 1898 measles, mumps, rubella,a nd varicella live vaccine medicatio n Not available Not available Not available 02/24/2020 Trishasugar Mcguire [facility], [facility] 0 13:34:13 Medications Name Sig [...] Prescrib ed Elsewher e: No Locat ion: [facility] odify By: raymond zunigauntgiovana DateTime : 11/29/19 18 02:45:00 PM Not Available Not Available Not Available Metrogel Vaginal 0.75 % (37.5 mg/5 gram) insert 1 applicat orful by vaginal route every day at bedtime 12/04 completed Prescrib ed Elsewher e: No Locat ion: Anna szymanski [facility] odify By: brittni blake DateTime : [...] Prescrib ed Elsewher e: No [facility] By: raymond zunigauntgiovana DateTime : 02/12/20 18 03:15:00 PM Not Available Not Available Not Available trazodone 100 mg tablet TK 1 T PO QD HS 10/06 completed Not Available Not Available Not Available Flagyl 500 mg tablet take 1 tablet by oral route every 12 hours 07/24 completed Prescrib ed Elsewher e: No Locat ion: Anna szymanski [facility] odify By: denniskuhl E ncounter DateTime [...] ed Elsewher e: No [facility] odify By: brittni blake DateTime : [...] ed Elsewher e: No [facility] odify By: leslye Miranda ter DateTime : 06/20/20 18 02:30:00 PM Not Available Not Available Not Available NuvaRing 0.12 mg-0.015 mg/24 hr vaginal insert 1 vaginal ring by vaginal route every week continuo usly 08/13 completed Prescrib ed Elsewher e: No Locat ion: Anna szymanski [facility] odify By: leslye Miranda ter DateTime : 06/28/19 19 08:45:00 AM Not Available Not Available Not Available Zithromax 500 mg tablet take 2 tablet by oral route once 06/03 completed Prescrib ed Elsewher e: No Locat ion: Anna szymanski [facility] odify By: raymond zunigaunter DateTime : [...] Elsewher e: No Locat ion: Anna szymanski [facility] odify By: raymond zunigaunter DateTime : 03/19/20 18 01:30:00 PM Not Available Not Available Not Available nitrofura ntoin monohydra te/macroc rystals 100 mg capsule 10/06 completed Not Available Not Available Not Available Nexplanon 68 mg subdermal implant 10/31 completed Prescrib ed Elsewher e: Yes Loca tion: Anna szymanski [facility] odify By: brittni blake DateTime : 10/28/19 14 10:00:00 AM Not Available Not Available Not Available HEEL SANDER RUBBER-PNV-DH A 28 mg iron-1 mg-200 mg capsule take 1 capsule by oral route every day 06/03 completed Prescrib ed Elsewher e: No Locat ion: [facility] odify By: dennisrosa John ncounter DateTime : 05/02/20 17 10:49:43 AM Not Available Not Available Not Available 19 29 mg iron-1 mg chewable tablet chew 1 tablet by oral route every day 10/23 completed Prescrib ed Elsewher e: No Locat ion: [facility] odify By: amrosa Szymanski ncounter DateTime : 03/07/20 01:19:00 PM Not Available Not Available Not Available Aurovela Fe 1-20 (28) 1 mg-20 mcg (21)/75 mg (7) tablet TAKE 1 TABLET BY MOUTH EVERY DAY active Not Available Not Available No t Available Vitals Date Recorded Body height Body mass index (BMI) Body weight Systolic And Diastolic Provider Name and Address Organization Details Last Updated DateTime 10/06/2020 170.18 cm 36.2 kg/m2 237207.84 g 123/88 mm[Hg] [facility] 10/06/2020 14:41:29 Social History None recorded. [...] ICD10 Code Diagnosis IMO Codes Diagnosis Note 07507 Rosi Henriquez MD [place] [address] [address] 10/06/2020 14:27:10 10/06/2020 15:48:34 Menometrorrhagia 016799216 N92.1 Body mass index 30+ - obesity 595583991 Z68.36 Health Concerns Section Related Observation LastModified by Organization Detai ls LastModified Time None Recorded Concern Status LastModified by Organization Details LastModified Time None Recorded Advance Directives Directive None Recorded Payers Insurance Date Sequence Insurance Name Policy Number Policy Lawrence Covered Member ID Lawrence Member ID Guarantor Name 12/26/2020 1 [facility] (MEDICAID HMO) [id number] Sandra Perdomo [id number] Sandra Perdomo 03/18/2020 *SELF PAY* As marjorie [...] 12/2018 Rosi Henriquez MD [address], [place], [address], [place] [facility] 10/06/2020 15:44:42 OBGyn Episode Ob Episode Information Episode Created Date Number of Fetuses Patient Bloodtype Patient rh Status Prepregnancy Weight lbs Domestic Partner Domestic Partner Phone Father Name Street Commissioner Status 10/07/19 21 1 CLOSED Fetus Data [...] Domestic Partner Domestic Partner Phone Father Name Street Commissioner Status 10/07/19 21 1 CLOSED Fetus Data [...]
--- OUTSIDE RECORDS SUMMARY | 2025-06-19 11:55 | XMS_ITS | Patient Health Record ---
Author Organization [facility] Address [address] [place] [address] Phone [phone] Care Team Providers Care Field Marketing Lead Name Role Phone Xochitl Francisco Primary Care Provider [phone] Allergies Allergen (clinical drug ingredient) Drug/Non Drug [...] affective di sorder (F31.9) Referral Organization [facility] Referring Provider First Name Xochitl Referring Provider Last Name Nolan Referring Provider Speciality Psychiatry Referred Provider Specialty Yarn Preparation SupervisorBisque Finisher Notes Xochitl Francisco 10:08:30 AM > client would like help with applying for disability please. Thank you. Clinical Notes Daniela Lebron 06/01/2025 10:43:42 AM > Caseworker Intake called and left voicemail message for client, Tolu Lebron 06/15/2025 10:05:22 AM > Caseworker Intake called and left voicemail message for client. Referral Priority Routine Medications Medication SIG (Take, [...] Status Risk Notes Problem Generalized anxiety disorder (02616856) Generalized anxiety disorder (F41.1) Added On:10/28 Active confirmed Problem Attention deficit hyperactivity disorder (919303833) ADHD (attention deficit hyperactivity disorder) (F90.9) Added On:12/10 Active confirmed Problem Bipolar affective disorder (91313318) Bipolar affective disorder (F31.9) Added On:10/28 Active confirmed Problem Overweight (305590733) Over weight (E66.3) Added On:10/01 Active confirmed Problem Sleep disturbance (55525168) Sleep disturbance, unspecified (G47.9) Added On:10/28 Active [...] Location Provider Diagnosis 07/15/19 10:20 AM [place] (87378) Count Includes [facility] [place] [address] Xochitl Francisco Nutritional counseling Z71.3 ; Bipolar affective disorder F31.9 ; Generalized anxiety disorder F41.1 ; Sleep disturbance, unspecified G47.9 and ADHD (attention deficit hyperactivity disorder) F90.9 08/19/19 03:00 PM Telehealth Office Visit, Est Pt., Level 4 (96369) Count Includes [facility] [place] [address] Xochitl Francisco Nutritional counseling Z71.3 ; Bipolar affective disorder F31.9 ; Generalized anxiety disorder F41.1 ; Sleep disturbance, unspecified G47.9 and ADHD (attention deficit hyperactivity disorder) F90.9 10/02/19 10:00 AM BODY MASS INDEX DOCD (3008F) [address] [place] [address] Xochitl Francisco Over weight E66.3 ; Nutritional counseling Z71.3 ; Bipolar affective disorder F31.9 ; Generalized anxiety disorder F41.1 ; Sleep disturbance, unspecified G47.9 and ADHD (attention deficit hyperactivity disorder) F90.9 10/15/19 10:00 AM Telehealth Office Visit, Est Pt., Level 4 (01700) Count Includes [facility] [place] [address] [place] [address] Xochitl Francisco Over weight E66.3 ; Nutritional counseling Z71.3 ; Bipolar affective disorder F31.9 ; Generalized anxiety disorder F41.1 ; Sleep disturbance, unspecified G47.9 and ADHD (attention deficit hyperactivity disorder) F90.9 11/13/19 03:40 PM Telehealth Office Visit, Est Pt., Level 4 (75887) [address] [place] [address] Xochitl Francisco Generalized anxiety disorder F41.1 ; Sleep disturbance, unspecified G47.9 ; Bipolar affective disorder F31.9 and ADHD (attention deficit hyperactivity disorder) F90.9 12/31/19 02:20 PM Office Visit, Est Pt., Level 4 (64508) [address] [place] [address] Xochitl Nolan Over weight E66.3 ; Generalized anxiety disorder F41.1 ; Sleep disturbance, unspecified G47.9 ; ADHD (attention deficit hyperactivity disorder) F90.9 and Bipolar affective disorder F31.9 01/30/20 09:00 AM Telehealth Office Visit, Est Pt., Level 4 (70111) [address] [address] Xochitl Nolan Over weight E66.3 ; Generalized anxiety disorder F41.1 ; Sleep disturbance, unspecified G47.9 ; ADHD (attention deficit hyperactivity disorder) F90.9 and Bipolar affective disorder F31.9 02/27/20 08:20 AM Telehealth Office Visit, Est Pt., Level 4 (11175) [address] [address] Xochitl Nolan Over weight E66.3 ; Generalized anxiety disorder F41.1 ; Sleep disturbance, unspecified G47.9 ; ADHD (attention deficit hyperactivity disorder) F90.9 and Bipolar affective disorder F31.9 04/06/20 25 01:20 PM Office Visit, Est Pt., Level 4 (22096) [address] [address] Xochitl Nolan Over weight E66.3 ; Generalized anxiety disorder F41.1 ; Sleep disturbance, unspecified G47.9 ; ADHD (attention deficit hyperactivity disorder) F90.9 and Bipolar affective disorder F31.9 05/06/20 25 08:40 AM Telehealth Office Visit, Est Pt., Level 4 (88527) [address] [address] Xochitl Nolan Over weight E66.3 ; Generalized anxiety disorder F41.1 ; Sleep disturbance, unspecified G47.9 ; ADHD (attention deficit hyperactivity disorder) F90.9 and Bipolar affective disorder F31.9 06/03/20 25 09:20 AM Telehealth Office Visit, Est Pt., Level 4 (97922) [address] [address] Xochitl Francisco Over weight E66.3 ; Generalized anxiety disorder F41.1 ; Sleep disturbance, unspecified G47.9 ; ADHD (attention deficit hyperactivity disorder) F90.9 and Bipolar affective disorder F31.9 07/16/19 25 11:25 AM Telephone Encounter [address] [address] Xochitl Francisco 08/11/19 25 09:09 AM Telephone Encounter [facility] [address] [address] Xochitl Francisco ADHD (attention deficit hyperactivity disorder) F90.9 and Bipolar affective disorder F31.9 08/22/19 25 10:19 AM Telephone Encounter [address] [address] Xochitl Francisco 09/02/19 25 08:55 AM Telephone Encounter [address] [address] Xochitl Francisco 09/19/19 25 03:21 PM Telephone Encounter [address] [address] Xochitl Francisco 11/13/19 25 08:38 PM Telephone Encounter [address] [address] Xochitl Francisco 11/14/19 25 08:58 AM Telephone Encounter [facility] [address] [address] Xochitl Francisco 12/16/19 25 10:16 AM Telephone Encounter [address] [address] Xochitl Francisco ADHD (attention deficit hyperactivity disorder) F90.9 ; Bipolar affective disorder F31.9 and Generalized anxiety disorder F41.1 12/17/19 25 09:14 AM Telephone Encounter [address] [address] Xochitl Francisco 01/01/20 25 01:06 PM Telephone Encounter [address] [address] Xochitl Francisco 02/28/20 25 10:51 AM Telephone Encounter [address] [address] Xochitl Francisco 03/20/20 25 11:06 AM Telephone Encounter [address] [address] Xochitl Francisco Bipolar affective disorder F31.9 and ADHD (attention deficit hyperactivity disorder) F90.9 03/30/20 25 08:58 AM Telephone Encounter [facility] [address] [address] Xochilt Francisco 03/30/20 25 09:41 AM Telephone Encounter [address] [address] Xochitl Francisco 04/06/20 25 02:53 PM Telephone Encounter [address] [address] Xochitl Francisco 05/06/20 25 10:07 AM Telephone Encounter [address] [address] Xochitl Francisco 06/03/20 25 02:44 PM Telephone Encounter [facility] [address] [address] Xochitl Francisco 10/16/19 25 10:59 PM Web Encounter [address] [address] Xochitl Francisco 03/01/20 25 01:44 PM Web Encounter [address] [address] Xochitl Francisco 03/04/20 25 05:11 PM Web Encounter [address] [address] Xochitl Francisco ADHD (attention deficit hyperactivity disorder) F90.9 03/06/20 25 10:23 AM Web Encounter [address] [address] Xochitl Francisco 03/20/20 25 12:26 PM Web Encounter [address] [address] Xochitl Francisco ADHD (attention deficit hyperactivity disorder) F90.9 and Bipolar affective disorder F31.9 03/25/20 25 07:35 PM Web Encounter [address] [address] Xochitl Francisco Bipolar affective disorder F31.9 04/06/20 25 03:44 PM Web Encounter [address] [address] Xochitl Francisco 04/30/20 25 09:50 PM Web Encounter [address] [address] Xochitl Francisco ADHD (attention deficit hyperactivity disorder) F90.9 05/11/20 25 09:35 AM Web Encounter [address] [address] Xochitl Francisco Bipolar affective disorder F31.9 05/13/20 25 10:50 AM Web Encounter [address] [address] Xochitl Francisco ADHD (attention deficit hyperactivity disorder) F90.9 Assessments Encounter Date Diagnosis (ICD Code) Assessment Notes Treatment Notes Section Notes 11/12/2024 Generalized anxiety disorder (ICD-10 - F41.1) Encouraged therapy. Hx of doing well with clonidine, restarting 03/20/2025 ADHD (attention deficit hyperactivity disorder) (ICD-10 - F90.9) 04/30/2025 ADHD (attention deficit hyperactivity disorder) (ICD-10 - F90.9) 12/15/2024 ADHD (attention deficit hyperactivity disorder) (ICD-10 - F90.9) 05/13/2025 ADHD (attention deficit hyperactivity disorder) (ICD-10 - F90.9) 03/04/2025 ADHD (attention deficit hyperactivity disorder) (ICD-10 - F90.9) 08/11/2024 ADHD (attention deficit hyperactivity disorder) (ICD-10 - F90.9) 05/11/2025 Bipolar affective disorder (ICD-10 - F31.9) 03/20/2025 Bipolar affective disorder (ICD-10 - F31.9) 03/25/2025 Bipolar affective disorder (ICD-10 - F31.9) 10/01/2024 Over weight (ICD-10 - E66.3) 10/14/2024 Over weight (ICD-10 - E66.3) 12/30/2024 Over weight (ICD-10 - E66.3) 01/29/2025 Over weight (ICD-10 - E66.3) 02/26/2025 Over weight (ICD-10 - E66.3) 04/06/2025 Over weight (ICD-10 - E66.3) Client with manic symptoms around ovulation. F/U with OB. Hx of being on higher strenth combination pills with feeling mild depression. May start Lo Loestrin at this time. Discussed r/b/se. Client does not smoke/vape. 05/06/2025 Over weight (ICD-10 - E66.3) 06/03/2025 Over weight (ICD-10 - E66.3) 07/15/2024 Nutritional counseling (ICD-10 - Z71.3) 08/19/2024 Nutritional counseling (ICD-10 - Z71.3) 10/01/2024 Nutritional counseling (ICD-10 - Z71.3) 10/14/2024 Nutritional counseling (ICD-10 - Z71.3) 12/15/2024 Bipolar affective disorder (ICD-10 - F31.9) 11/12/2024 Sleep disturbance, unspecified (ICD-10 - G47.9) Continue seroquel 07/15/2024 Bipolar affective disorder (ICD-10 - F31.9) Discussed r/b/se. To start extra 25 mg topiramate in 1 week. 08/11/2024 Bipolar affective disorder (ICD-10 - F31.9) 03/20/2025 Bipolar affective disorder (ICD-10 - F31.9) 08/19/2024 Bipolar affective disorder (ICD-10 - F31.9) Reports doing well with mood with topiramate. 03/20/2025 ADHD (attention deficit hyperactivity disorder) (ICD-10 - F90.9) 12/30/2024 Generalized anxiety disorder (ICD-10 - F41.1) Encouraged therapy. Hx of doing well with clonidine, see ADHD 01/29/2025 Generalized anxiety disorder (ICD-10 - F41.1) Encouraged therapy. Hx of doing well with clonidine, see ADHD 02/26/2025 Generalized anxiety disorder (ICD-10 - F41.1) Encouraged therapy. Hx of doing well with clonidine, see ADHD 04/06/2025 Generalized anxiety disorder (ICD-10 - F41.1) Encouraged therapy. Hx of doing well with clonidine, see ADHD 05/06/2025 Generalized anxiety disorder (ICD-10 - F41.1) Encouraged therapy. Hx of doing well with clonidine, see ADHD 06/03/2025 Generalized anxiety disorder (ICD-10 - F41.1) Encouraged therapy. Hx of doing well with clonidine, see ADHD 07/15/2024 Generalized anxiety disorder (ICD-10 - F41.1) Encouraged therapy. 08/19/2024 Generalized anxiety disorder (ICD-10 - F41.1) Encouraged therapy. 12/15/2024 Generalized anxiety disorder (ICD-10 - F41.1) 11/12/2024 ADHD (attention deficit hyperactivity disorder) (ICD-10 - F90.9) Discussed controlled sub. PDMP checked without concerns. 10/01/2024 Bipolar affective disorder (ICD-10 - F31.9) Reports doing well with mood with topiramate. 10/14/2024 Bipolar affective disorder (ICD-10 - F31.9) Was doing well with Seroquel, restarting 11/12/2024 Bipolar affective disorder (ICD-10 - F31.9) monitor appetite 02/26/2025 Sleep disturbance, unspecified (ICD-10 - G47.9) Continue seroquel 04/06/2025 Sleep disturbance, unspecified (ICD-10 - G47.9) Continue seroquel 05/06/2025 Sleep disturbance, unspecified (ICD-10 - G47.9) Continue seroquel 06/03/2025 Sleep disturbance, unspecified (ICD-10 - G47.9) Continue seroquel 12/30/2024 Sleep disturbance, unspecified (ICD-10 - G47.9) Continue seroquel 01/29/2025 Sleep disturbance, unspecified (ICD-10 - G47.9) Continue seroquel 08/19/2024 Sleep disturbance, unspecified (ICD-10 - G47.9) Discussed r/b/se. 07/15/2024 Sleep disturbance, unspecified (ICD-10 - G47.9) Continue Seroquel. 05/06/2025 ADHD (attention deficit hyperactivity disorder) (ICD-10 - F90.9) Discussed controlled sub. PDMP checked without concerns. 04/06/2025 ADHD (attention deficit hyperactivity disorder) (ICD-10 - F90.9) Discussed controlled sub. PDMP checked without concerns. 06/03/2025 ADHD (attention deficit hyperactivity disorder) (ICD-10 - F90.9) Discussed controlled sub. PDMP checked without concerns. 12/30/2024 ADHD (attention deficit hyperactivity disorder) (ICD-10 - F90.9) Discussed controlled sub. PDMP checked without concerns. Overstimulation and anxiety 2/2 stimuli noted, change clonidine to ER for ADHD and for anxiety reasoning. 01/29/2025 ADHD (attention deficit hyperactivity disorder) (ICD-10 - F90.9) Discussed controlled sub. PDMP checked without concerns. IR form not helping as well as did in the past, changing, monitor 02/26/2025 ADHD (attention deficit hyperactivity disorder) (ICD-10 - F90.9) Discussed controlled sub. PDMP checked without concerns. Adderall with positive effects on concentration but moderate increase in irritability. Change to Concerta, discussed r/b/se. 10/01/2024 Generalized anxiety disorder (ICD-10 - F41.1) Encouraged therapy. 10/14/2024 Generalized anxiety disorder (ICD-10 - F41.1) Encouraged therapy. Hx of doing well with clonidine, restarting 07/15/2024 ADHD (attention deficit hyperactivity disorder) (ICD-10 - F90.9) Discussed possible increase- client has been on medications for months at this time- will reassess at next appt. 04/06/2025 Bipolar affective disorder (ICD-10 - F31.9) 08/19/2024 ADHD (attention deficit hyperactivity disorder) (ICD-10 - F90.9) Increasing, discussed to monitor for s/s of herberth/increase anxiety. Discussed controlled sub. PDMP checked without concerns. 05/06/2025 Bipolar affective disorder (ICD-10 - F31.9) 06/03/2025 Bipolar affective disorder (ICD-10 - F31.9) 01/29/2025 Bipolar affective disorder (ICD-10 - F31.9) change back dosing to mostly at night r/t fatigue 02/26/2025 Bipolar affective disorder (ICD-10 - F31.9) change back dosing to mostly at night r/t fatigue. 10/01/2024 Sleep disturbance, unspecified (ICD-10 - G47.9) Possible irritability r/t mirtazapine, decrease to half tablet. Also increasing topamax. Monitor fatigue. Discussed r/b/se. 10/14/2024 Sleep disturbance, unspecified (ICD-10 - G47.9) Restarting Seroquel 12/30/2024 Bipolar affective disorder (ICD-10 - F31.9) monitor appetite 10/01/2024 ADHD (attention deficit hyperactivity disorder) (ICD-10 - F90.9) Discussed controlled sub. PDMP checked without concerns. 10/14/2024 ADHD (attention deficit hyperactivity disorder) (ICD-10 - F90.9) Discussed controlled sub. PDMP checked without concerns. 10/01/2024 Other Reasons, potential benefits, potential risks, [...] assess appearance, affect, AIMS, or vital signs. 05/06/2025 Other Reasons, potential benefits, potential risks, [...] May also contact the 24-hour crisis hotline ([facility]), refer to the closest emergency room [...] May also contact the 24-hour crisis hotline ([facility]), refer to the closest emergency room [...] of education, treatment plan and follow up. 02/26/2025 Other Reasons, potential benefits, potential risks, [...] May also contact the 24-hour crisis hotline ([facility]), refer to the closest emergency room [...] May also contact the 24-hour crisis hotline ([facility]), refer to the closest emergency room [...] of education, treatment plan and follow up. 07/15/2024 Other PDMP checked without concerns. Reasons, [...] May also contact the 24-hour crisis hotline ([facility]), refer to the closest emergency room [...] assess appearance, affect, AIMS, or vital signs. 11/12/2024 Other Reasons, potential benefits, potential risks, [...] May also contact the 24-hour crisis hotline ([facility]), refer to the closest emergency room [...] May also contact the 24-hour crisis hotline ([facility]), refer to the closest emergency room [...] assess appearance, affect, AIMS, or vital signs. 01/29/2025 Other Reasons, potential benefits, potential risks, [...] May also contact the 24-hour crisis hotline ([facility]), refer to the closest emergency room [...] May also contact the 24-hour crisis hotline ([facility]), refer to the closest emergency room [...] of education, treatment plan and follow up. 06/03/2025 Other Reasons, potential benefits, potential risks, [...] May also contact the 24-hour crisis hotline ([facility]), refer to the closest emergency room [...] Insured Coverage Start Date Coverage End Date [id number] [address] [place] [address] [id number] Sandra Perdomo Self - patient is the insured 4 [employer] [address] [place] [address] [id number] Sandra Perdomo Self - patient is the insured 4 Medical (General) History Medical History History ICD Code Asthma Surgical History Surgery Date(Month/Year) Tubal Ligation Jul 2018
--- OUTSIDE RECORDS SUMMARY | 2025-06-19 11:55 | XMS_ITS | Clinical Summary ---
Author Organization [facility] Address [address] [place] [address] Phone Care Team Providers Care Land Development Manager Name Role Phone Gisel Reynolds APRN, SHANK BONER Primary Care Provider [phone] Allergies Active Allergy Reactions Criticality Noted Date [...] (09/18/2024): Added automatically from request for surgery [id number] Borderline personality disorder 12/04/2019 Obesity with body mass index 30 or greater 12/31 Overview (09/18/2024): Body mass index (BMI) 34.0-34.9, adult;Recorded Elsewhere: No Location: [facility] Source: EHR Chronic: N Practice ID: [id number] Billable Time: 02:00:00 PM Herpetic vulvovaginitis 12/04/2018 Overview (09/18/2024): Herpesviral vulvovaginitis;Recorded Elsewhere: No Location: [facility] Source: EHR Chronic: N Practice ID: [id number] Billable Time: 10:15:00 AM Sexually transmitted infection 11/26/2018 Overview (09/18/2024): STD;Recorded Elsewhere: No Location: [facility] Source: EHR Chronic: N Practice ID: [id number] Billable Time: 08:30:00 AM Acute vaginitis 11/26/2018 Overview (09/18/2024): Vaginitis;Recorded Elsewhere: No Location: [facility] Source: EHR Chronic: N Practice ID: [id number] Billable Time: 08:30:00 AM Dizziness 10/08/2017 Overview (09/18/2024): Dizziness and giddiness;Practice ID: [id number] Backache 07/23/2017 Overview (09/18/2024): Back pain;Recorded Elsewhere: No Location: [facility] Source: EHR Chronic: N Practice ID: [id number] Billable Time: 09:30:00 AM Secondary amenorrhea 03/26/2017 Overview (12/12/2024): Secondary amenorrhea;Practice ID: [id number] Uterine size-date discrepancy 03/05/2013 Overview (12/12/2024): UTERINE SIZE VON-ANTEPAR;Recorded Elsewhere: No Location: [facility] Source: EHR Chronic: N Practice ID: [id number] [...] drink = 0.6 oz pur e alcohol) [facility] Utilities Answer Date Recorded In the past 12 months has [employer] electric, gas, oil, or water company threatened [...] week 10/15/2024 How often do you attend [facility] or mosque services? Never 10/15/2024 Do you belong to any clubs o r organizations such as episcopal groups, unions, fraternal or athletic groups, or [...] Total Score - Questions 1-9 0 08/24 [facility] of Occupat ional [facility] - Occupational Stress Questionnaire Answer Date Recorded [...] any time in the past 12 m [facility], were you homeless or living in a [facility] (including now)? No 10/15/2024 Sexually Active Control [...] VELEZ PA TPL on file Care Teams Land Development Manager Relationship Specialty Start Date End Date Gisel Reynolds, BOATHOUSE KEEPER, SHANK BONER [address] [place] [address] PCP - General Certified Nurse Practitioner 09/18/24
--- OUTSIDE RECORDS SUMMARY | 2025-06-19 11:55 | XMS_ITS | Clinical Summary ---
Author Organization [facility] Address [address] [place] [address] Care Team Providers Care Director Of Program Management Name Role Phone No, Physician Primary Care Provider [phone] Allergies Active Allergy Reactions Criticality Noted Date [...] (10/26/2021): Added automatically from request for surgery [id number] Borderline personality disorder 12/04/2019 Resolved Problems Problem Noted Date Diagnosed Date Resolved Date Acute bilateral otitis media 01/25/2019 12/03/2019 Acute pharyngitis 01/25/2019 12/03/2019 Strep throat exposure 01/25/20192019 Encounters Date Type Department Care Team Description 05/19/2025 2:15 PM PREFINISH OPERATOR E-Visit [address] [phone] Beth Thibodeaux NP Your Medications 05/19/2025 Patient Self-Triage [facility] [address] [place] [phone] Mychart, Generic Provider 05/18/2025 Patient Self-Triage [facility] [address] [place] [phone] Mychart, Generic Provider 05/18/2025 Patient Self-Triage [facility] [address] [place] [phone] Mychart, Generic Provider 05/18/2025 Patient Self-Triage [facility] [address] [place] [phone] Mychart, Generic Provider 05/18/2025 Patient Self-Triage [facility] [address] [place] [phone] Mychart, Generic Provider 03/31/2025 12:55 PM CDT E-Visit [address] [phone] Etta Barteltt NP Your Medications 03/31/2025 Patient Self-Triage [facility] [address] [place] [address] Mychart, Generic Provider from Last [...] on file Legal Sex Female 9:16 AM PREFINISH OPERATOR Gender Identity Not on file Sexual Orientation [...] Comments Blood Pressure 121/73 06/03/2024 11:29 AM PREFINISH OPERATOR Pulse 80 06/03/2024 11:29 AM PREFINISH OPERATOR Temperature 36.5 C (97.7 F) 06/03/2024 9:01 AM PREFINISH OPERATOR Respiratory Rate 18 06/03/2024 11:29 AM PREFINISH OPERATOR Oxygen Saturation 98% 06/03/2024 11:29 AM PREFINISH OPERATOR Inhaled Oxygen Concentration - - Weight 103.4 kg (228 lb) 06/03/2024 9:01 AM PREFINISH OPERATOR Height 170.2 cm (5' 7) 06/03/2024 9:01 AM PREFINISH OPERATOR Body Mass Index 35.71 06/03/2024 9:01 AM PREFINISH OPERATOR Plan of Treatment Health Maintenance Due Date [...] HPV Vaccines Completed 12/31/2007, 05/25, 04/03/[address] [place] [address] [place] [address] [facility] Advance Directives For more information, please contact: [phone] * Full Code (Latest Code Status on File) Date Activated Date Inactivated Comments 12/04/2019 4:26 AM 12/04/2019 7:44 PM Care Teams Director Of Program Management Relationship Specialty Start Date End Date No, Physician PCP - General 07/15/19
--- OUTSIDE RECORDS SUMMARY | 2025-06-19 11:55 | XMS_ITS | Clinical Summary ---
Author Organization [facility] Address [address] [place] [address] Care Team Providers Care Microfilm Duplicating Unit Supervisor Name Role Phone Unavailable Primary Care Provider Unavailabl e Source Comments [facility],non-owned Affiliates and Associated Physician Practices is amultiple site organization consisting of ambulatory clinics and hospital sitesin [place], [place], [place] and [place]. This disclosure is being madepursuant to the Care Everywhere program and may not contain all information available regarding this patient. Last updated 18.[facility] [employer] Social History Tobacco Use Types Packs/Day Years Used Date Smoking Tobacco: Never Assessed Comments Unknown Sex and Gender Information Value Date Recorded Sex Assigned at Not on file Legal Sex Female 6:26 PM HEALTHCARE INSURANCE SALES AGENT Gender Identity Not on file Sexual Orientation [...] patient's age to complete this topic Insurance [facility]
[2025-06-19 11:59] VITALS: BP 131/91; PULSE 81; RESP 16; TEMP 36.6; O2SAT 100
--- NOTE | 2025-06-19 12:25 | ED.URI ---
HPI - URI/Sore Throat General Chief Complaint: Upper Respiratory Infection Stated Complaint: Sore Throat/Cough/Runny Nose Time Seen by Provider: 06/19/25 12:25 Source: patient Mode of arrival: ambulatory Limitations: no limitations History of Present Illness HPI Narrative: Sandra is a 30-year-old female patient presenting to the clinic today with complaints of sore throat, cough, and runny nose a just started last night. She has not taken anything for symptoms. States she feels very fatigued. Denies any chest pain or shortness of breath. Is requesting work note. MD elicited complaint: sore throat and nasal congestion Related Data Home Medications ?Medication ?Instructions ?Recorded ?Confirmed ?Last Taken ?Type clonidine HCl 0.1 mg mg PO 06/14/25 Unknown History tablet,extended release,12 hr dextroamphetamine-amphetamine 20 06/14/25 Unknown History mg tablet norethindrone 1.5 mg-ethinyl tablet 06/14/25 Unknown History estradiol 30 mcg(21)/iron 75 mg(7) tablet (Junel FE 1.5/30 (28)) quetiapine 25 mg tablet mg 06/14/25 Unknown History topiramate 25 mg tablet mg 06/14/25 Unknown History Allergies Allergy/AdvReac Type Severity Reaction Status Date / Time measles, mumps, and rubella Allergy Severe Swelling Verified 06/19/25 12:11 vaccine lamotrigine Allergy Intermediate Rash Verified 06/19/25 12:11 latex Allergy Intermediate Rash Verified 06/14/25 15:36 fluoxetine Allergy Unknown Unknown Verified 06/19/25 12:11 Review of Systems Review of Systems: Pertinent positives per HPI. Patient denies any fever, chills, rash, headache, visual changes, dizziness, cough, shortness of breath, chest pain, palpitations, nausea, vomiting, diarrhea, constipation, abdominal pain, or any urinary issues. [facility] Past Medical History Medical History GERD (gastroesophageal reflux disease) ADHD (attention deficit hyperactivity disorder) Knee effusion Anxiety and depression Sinusitis Surgical History Surgical History History of tonsillectomy Tubal ligation status Family History Family History Mother Family history non-contributory Social History Social History Smoking status: Former smoker Tobacco type: cigarettes Smoking end date: 06/25/19 Substance use: never Living arrangements: with family Gender identity (if verbalized by the patient): Female Sexual Orientation (if Verbalized by the Patient): Straight or Heterosexual Spiritual care concerns: No Comments At the time of my signature, I reviewed and agree with the nursing past medical, surgical, social, and family history. There is no relevant family history pertinent to the patient complaint. Exam Narrative: General: Well-developed, well nourished, in no apparent distress Head: Normocephalic, atraumatic Eyes: Pupils equally round and reactive to light bilaterally, EOM intact, sclera and conjunctive clear, no discharge, lids normal Ears: TMs intact and clear, ear canals clear, no drainage, grossly hearing normal. Nose: Nares patent, clear discharge, mild inflammation, no sinus tenderness. Mouth: Oral pharynx red without lesions or masses, good dentition, MMM. Neck: Supple, trachea midline, no enlargement of anterior or posterior cervical nodes, no thyroid masses or goiter palpable. Cardio: Regular rate and rhythm, s1 and s2 normal, no murmur appreciated. Resp: Clear to auscultation bilaterally, no rhonchi, rales, wheezing or rubs Course Course Level of Care: Express Care Visit Vital Signs Vital signs: Vital Signs Temperature 36.6 C 06/19/25 11:59 Pulse Rate 81 06/19/25 11:59 Respiratory Rate 16 06/19/25 11:59 Blood Pressure 131/91 H 06/19/25 11:59 Pulse Oximetry 100 06/19/25 11:59 Oxygen Delivery Room Air 06/19/25 11:59 Temperature 36.6 C 06/19/25 11:59 Pulse Rate 81 06/19/25 11:59 Respiratory Rate 16 06/19/25 11:59 Blood Pressure 131/91 H 06/19/25 11:59 Pulse Oximetry 100 06/19/25 11:59 Oxygen Delivery Room Air 06/19/25 11:59 MDM MDM Narrative Medical decision making narrative: At the time of visit patient is resting comfortably on the exam table. Patient appears to be nontoxic. Complaints of sore throat, cough, and runny nose a just started last night. She has not taken anything for symptoms. States she feels very fatigued. Denies any chest pain or shortness of breath. Is requesting work note. On exam patient has bilateral TMs intact and clear, clear nasal drainage, mild anterior turbinate inflammation, oral pharynx red, no cervical lymphadenopathy lung sounds are clear, heart rates regular rate and rhythm. COVID, flu, and strep test were ordered. Labs: COVID, flu, and strep were all negative. We will send strep for culture. Plan: I suspect patient has URI/pharyngitis/viral syndrome. Supportive measures were discussed with the patient and they voiced understanding discharge instructions and agrees to treatment plan. Return precautions reviewed Differential Diagnosis Differential Diagnosis: Differential diagnostic considerations for upper respiratory infection include upper respiratory infection, croup, otitis media, sinusitis, viral infection, bronchitis, influenza, pharyngitis, strep, uvulitis. Lab Data Labs: Lab Results 06/19/25 Range/Units 12:28 POC Influenza A Ag Negative (Negative) POC Influenza B Ag Negative (Negative) POC SARS CoV-2 Ag Negative (Negative) POC Grp A Strep Screen Negative (Negative) Discharge Plan Discharge Clinical Impression: Viral infection Upper respiratory infection Qualifiers: URI type: unspecified URI Qualified Code(s): J06.9 - Acute upper respiratory infection, unspecified Pharyngitis Qualifiers: Pharyngitis/tonsillitis etiology: unspecified etiology Qualified Code(s): J02.9 - Acute pharyngitis, unspecified Patient Disposition: Home Condition: Stable Instructions: Antibiotic Form, Pharyngitis (ED), Viral Syndrome (ED), Cold Symptoms (ED) Additional Instructions: Take prescription medications only as prescribed Increase fluids and stay well hydrated May take Tylenol or motrin as directed on bottle for pain/fever May use Flonase 1 spray in each nare daily May take OTC antihistamines such as Zyrtec or Claritin daily as directed on bottle May apply Vicks vapor rub to chest to open sinuses Sinus rinses for congestion Cepacol spray, cough drops, throat lozenges, warm tea with honey/lemon, gargle salt water to soothe throat BRAT diet for diarrhea Clear liquids x 24 hours then advance as tolerated for nausea/vomiting Go to the ED if you develop a worsening in your condition- high fever not controlled by Tylenol or Motrin, dehydration, weakness, lethargy, shortness of breath, or chest pain. Follow up with your PCP in 3-5 days if symptoms persist. Patient Language: Yemeni Prescriptions: No Action quetiapine 25 mg tablet norethindrone-e.estradiol-iron [06.29/ (28)] 1.5 mg-30 mcg (21)/75 mg (7) tablet topiramate 25 mg tablet dextroamphetamine-amphetamine 20 mg tablet clonidine HCl 0.1 mg tablet extended release 12 hr PO Follow-up/Referrals: PHYSICIAN,EXPRESSIVE MUSIC THERAPIST [Primary Care Provider, Internal Medicine] Stand Alone Forms: Work/School Release IP Time of Disposition: 12:31 Quality NIHSS Nursing Documentation ED NIHSS nursing documentation: reviewed/agree
[2025-06-19 12:30] LABS: EDCOVIDSCREEN Negative (Negative); EDINFLUASCREEN Negative (Negative); EDINFLUBSCREEN Negative (Negative); EDSTREPNEGPOS1 Negative (Negative)
== END 2025-06-19 12:41 | disposition home or self-care (01) ==
PROVIDERS: Emergency Provider Nurse Practitioner Family
DX: B34.9 Viral infection, unspecified (principal); J06.9 Acute upper respiratory infection, unspecified; J02.9 Acute pharyngitis, unspecified; Z20.822 Contact with and (suspected) exposure to COVID-19; K21.9 Gastro-esophageal reflux disease without esophagitis; F90.9 Attention-deficit hyperactivity disorder, unspecified type; Z87.891 Personal history of nicotine dependence
CPT/HCPCS: 87081; 87426; 87804; 87880; 99213; G0463